=== PATIENT | male | born 1945 | race Caucasian/White ===

== ENCOUNTER → 2023-11-20 13:31 | Outpatient (REF) | payer MEDICARE, OTHER, SELFPAY | LOC: WOUND 13:31 | PROVIDERS: ATTENDING PHYSICIAN Surgery; REFERRING PHYSICIAN Internal Medicine Geriatric Medicine | DX: L89.313 Pressure ulcer of right buttock, stage 3 (principal); Z86.39 Personal history of other endocrine, nutritional and metabolic disease; Z85.51 Personal history of malignant neoplasm of bladder; Z99.2 Dependence on renal dialysis; K92.2 Gastrointestinal hemorrhage, unspecified; N18.5 Chronic kidney disease, stage 5; I12.0 Hypertensive chronic kidney disease with stage 5 chronic kidney disease or end stage renal disease | CPT/HCPCS: 11042; 99214 ==

== ENCOUNTER → 2023-11-29 16:10 | Outpatient (REF) | payer MEDICARE, OTHER, SELFPAY ==
--- NOTE | 2023-11-21 08:41 | WATCHMAN ---
Documented by User: VANDANA Tan 12/17/23 14:07
Watchman
Wathcman Procedure
Referred by:: Lucy Biggs/Suzi
Date of Referral:: 11/20/23
[id number] Score
Age in Years (65=0, 65-74=1, >/=75=2): > or = 75
Sex (Female=+1): Male
Congestive Heart Failure History (Yes=+1): No
Hypertension History (Yes=+1): Yes
Stroke/TIA/Thromboembolism History (Yes=+2): No
Vascular Disease History (Yes=+1): No
Diabetes Mellitus (Yes=+1): Yes
Score: 4
Anticoagulation Recommendations: Recommend anticoagulation (as validated in nonvalvular fib)
HASBLED Score
Hypertenstion (uncontrolled >160mmHG systolic): Yes
Renal disease (dialysis, transplant, Cr >2.26mg/dL or >200umol/L): Yes
Liver disease (cirrhosis or bilirubin >2x normal w/ AST/ALT/AP >3x normal: No
Stroke history: No
Prior major bleeding or predisposition to bleeding: Yes
Labile INR(unsable/high INRs,time in therapeutic range <60%): No
Age >65: Yes
Medication usage predisposing to bleeding(ASA, NSAIDS): No
Alcohol use (>/= 8 drinks/week): No
Score: 4
Risk: Alternatives to anticoagulation should be considered: Patient is at high risk for major bleeding
Physician Visits
Delivery Motorcycle Driver:: Suzi
Date of Visit:: 11/19/23
Primary Cash Applications Clerk:: Lucy Biggs
Date of Visit:: 11/05/23
PCP:: Fausto Gomez
Plan
Plan:: 11/19/2023: Patient seen by Dr. Archer for consult for watchman. Currently not on OAC following GI bleed. Needs GI clearance to resume. CT scan scheduled for 11/29/2023.
12/11/2023: Reviewed patient with the heart team in the [facility]. GI cleared patient for OAC 12/10/23. Dr. Archer to discuss starting OAC (Eliquis) and will discuss planning watchman if patient able to tolerate OAC. Reviewed CT scan and AMOL looks amenable
for a device will confirm with intraop JEN. JEN before TSP.
12/17/2023: Called and spoke to patient to update on Heart Team discussion. Explained to patient he will need to start Eliquis 3 weeks prior to watchman to make sure he can tolerate it without bleeding. Offered procedure date of 01/15/2024 but patient
is currently inpatient and unsure of discharge. Needs to 'think over' starting anticoagulation. Explained he will also need to be on it for a minimum of 45 days post procedure, possibly longer. Allowed for and answered questions. Will call in a week
or two to follow up. Racheal Archer notified that patient is inpatient and of this discussion.

Documented by User: VANDANA Lockhart 12/11/23 07:41
Watchman
[id number] Score
Score: 4
Anticoagulation Recommendations: Recommend anticoagulation (as validated in nonvalvular fib)
HASBLED Score
Score: 4
Risk: Alternatives to anticoagulation should be considered: Patient is at high risk for major bleeding
Plan
Plan:: 11/19/2023: Patient seen by Dr. Archer for consult for watchman. Currently not on OAC following GI bleed. Needs GI clearance to resume. CT scan scheduled for 11/29/2023.
12/11/2023: Reviewed patient with the heart team in the [facility]. GI cleared patient for OAC 12/10/23. Dr. Archer to discuss starting OAC (Eliquis) and will discuss planning watchman if patient able to tolerate OAC. Reviewed CT scan and AMOL looks amenable
for a device will confirm with intraop JEN. JEN before TSP.
== END ==
LOC: RAD 16:10
PROVIDERS: ATTENDING PHYSICIAN Internal Medicine Cardiovascular Disease; FAMILY PHYSICIAN Internal Medicine Geriatric Medicine
DX: I48.0 Paroxysmal atrial fibrillation (principal); Z87.19 Personal history of other diseases of the digestive system
CPT/HCPCS: 75572; Q9967

== ENCOUNTER → 2023-11-30 13:22 | Outpatient (REF) | payer MEDICARE, OTHER, SELFPAY | LOC: WOUND 13:22 | PROVIDERS: ATTENDING PHYSICIAN Surgery; FAMILY PHYSICIAN Internal Medicine Geriatric Medicine | DX: L89.313 Pressure ulcer of right buttock, stage 3 (principal); K92.2 Gastrointestinal hemorrhage, unspecified; N18.5 Chronic kidney disease, stage 5; I12.0 Hypertensive chronic kidney disease with stage 5 chronic kidney disease or end stage renal disease; Z99.2 Dependence on renal dialysis; Z86.39 Personal history of other endocrine, nutritional and metabolic disease; Z85.51 Personal history of malignant neoplasm of bladder | CPT/HCPCS: 99212 ==

== ENCOUNTER 2023-12-14 17:38 | Inpatient (IN) | payer MEDICARE, OTHER, SELFPAY ==
[2023-12-14] VITALS (7 sets, daily range): BP systolic 111–150; BP diastolic 49–71
[2023-12-14 14:02] LABS: Glucose - Point of Care 50 mg/dl (70-99)
[2023-12-14 14:17] LABS: Hematocrit 30.1 % (39.0-52.0); Hemoglobin 10.2 g/dL (13.0-18.0); Mean Corp Hgb Conc. 33.9 g/dL (33.0-37.0); Mean Corpuscular Hgb 33.4 pg (27.0-31.0); Mean Corpuscular Volume 98.7 fL (80.0-94.0); Mean Platelet Volume 11.3 fL (7.4-10.4); Platelet Count 356 10^3/uL (130-400); Red Blood Cell Count 3.05 10^6/uL (4.70-6.10); Red Cell Dist. Width 18.6 % (11.5-14.5)
[2023-12-14 14:29] LABS: Glucose - Point of Care 69 mg/dl (70-99)
[2023-12-14 14:38] LABS: ALT (SGPT) 85 U/L (0-50); AST (SGOT) 72 U/L (17-59); Albumin 3.9 g/dl (3.5-5.0); Alkaline Phosphatase 103 U/L (38-126); Blood Urea Nitrogen 84 mg/dl (9-20); Calcium 9.2 mg/dl (8.4-10.2); Carbon Dioxide 22 mmol/L (22-30); Chloride 98 mmol/L (98-107); Glucose 42 mg/dl (70-99); Potassium 3.8 mmol/L (3.5-5.1); Sodium 133 mmol/L (135-145); Total Bilirubin 0.5 mg/dl (0.2-1.3); Total Protein 6.5 g/dl (6.3-8.2); eGFR 6.31
[2023-12-14 14:54] LABS: Glucose - Point of Care 75 mg/dl (70-99)
[2023-12-14 15:04] LABS: Absolute Neutrophils -Man Diff 15.7 10^3/uL (1.4-6.5); Anisocytosis Occasional; Band Neutrophils 0 % (0-3); Lymphocytes 6 % (20-51); Monocytes 18 % (2-9); Myelocytes 1 % (-); Normal RBC Morphology No; Platelets Checked Yes; Segmented Neutrophils 75 % (42-75)
[2023-12-14 15:05] LABS: Hypochromasia 2+; Total Cells Counted 100
--- NOTE | 2023-12-14 15:06 | ED.GENMED ---
History of Present Illness
General
Chief Complaint: Change Level of Consciousness
Source: patient
Time Seen by Provider: 12/14/23 14:50
Travel History
Have you had any contact with someone who has COVID-19?: No
Do you have any symptoms of coronavirus? Fever > 100 degrees, chills, cough, shortness of breath, sore throat, loss of taste or smell, muscle aches, or headache?: No
History of Present Illness
History of Present Illness:
78-year-old male presents to the emergency room for evaluation of weakness, confusion. Patient noted to be hypoglycemic in triage. He was given orange juice and milk. At the time of my evaluation his Accu-Chek has gone up to 75 and he is
conversant. Daughter states he is much closer to baseline now than he was when she first picked him up this morning. Patient was recently hospitalized at [facility] due to confusion and weakness. This occurred after bladder procedures at [facility]. Patient was suggested to go to rehab but he did not. The procedures the patient underwent was removal of a prosthetic bladder sphincter. Because this was removed he has an indwelling Sanches catheter. Patient is known to nephrology here.
Patient gives himself long-acting insulin at night and then a sliding scale during the day. He does endorse significant weight loss since his recent hospitalization. Patient has been experiencing diarrhea. He did have it while he was hospitalized
at [facility]. Is not sure if he was tested for C. difficile.
Past History
Past History
ED Past Medical History: CAD, Cancer (Protate and Bladder), HTN, Hypercholesterolemia, NIDDM, Renal failure and Other (chronic constipation)
ED Past Surgical History: Cardiac (CABG) and Urological (Prostatectomy with bladder scraping)
Social History
Tobacco: Former smoker
Alcohol: Daily (Whisky)
Personal:
Living: with family
Employment: Retired
Phy Exam
Physical Exam
Physical Exam:
General: Awake, Alert, Oriented X3. Disheveled and appears chronically ill.
Vitals: Afebrile
Head: Atraumatic
Eyes: Pupils equal, EOMI
Throat: Airway intact, no exudates, dry mucosa
Neck: Trachea midline
Lungs: Clear and equal b/l
Heart: Regular rate, no murmurs
Abd: Soft, Nontender, No pulsatile mass. Port no dialysis catheter noted
Genitalia: Indwelling Sanches catheter noted
Neuro: Grossly nonfocal
Skin: Warm, dry, no rash
Extremities: pulses equal b/l, no edema
Course
Orders/Labs/Results
Orders:
Orders
12/14/23 13:58
Complete Blood Count/With Diff Urgent
Comprehensive Metabolic Panel Urgent
Manual Differential Urgent
12/14/23 Dinner
BRAT
At Your Request: Limited, Um Specialist Required
12/14/23 15:03
Acetaminophen [Tylenol] 650 mg PO NOW STA
Oxycodone [Roxicodone] 5 mg PO NOW STA
12/14/23 16:23
Hemodialysis treatment As Directed
Treatment date:: 12/15/23
Treatment type: Hemodialysis
Ultrafiltration (kg): 1
Treatment time (duration): 3 hours 30 minutes
Use dialysis access:: AVF
Dialyzer:: Optiflux 160
Blood flow rate minimum: 350
Blood flow rate maximum: 400
Dialysis flow rate: 600 mL/min
Dialysate temperature: 35 degrees Celsius
Sodium (Na): 140
Potassium (K): 3
Calcium (Ca): 2.5
Bicarbonate (HCO3): 35
12/14/23 16:37
CR Chest Portable - 1 View Urgent
Comment:
Reason For Exam: sob
Reason Study Needs to be Portable: Unable to Transport
12/14/23 17:27
Admit/Transfer Patient As Directed
Co-Sign Provider:
Level of Care: Inpatient admission
Assign to:: Telemetry
Physician / Group: kristopher
Diagnosis: antibiotic diarrhea, hypoglycemia
Reason for Telemetry: Arrhythmia
Date to Stop Telemetry: 12/17/23
Time to Stop Telemetry: 11:00
Reason for Hospitalization: antibiotic diarrhea, hypoglycemia
Expected length of stay greater than two midnights?: Yes
ELOS- Estimated Length of Stay in days: 2
I certify the patient meets the requirements for IP care: Yes
12/14/23 17:28
Code Status As Directed
Resuscitation Status: Do not resuscitate
Reached after discussion with pt or family/Healthcare POA: Yes
DNR Bracelet Application ONCE
12/14/23 17:29
C difficile Antigen & Toxins Urgent
LIANET Source: Feces/Stool
Specimen Description:
Norovirus by PCR Urgent
LIANET Source: Feces/Stool
Specimen Description:
Stool Culture Urgent
LIANET Source: Feces/Stool
Specimen Description:
12/14/23 18:32
Dextrose 50%-Water [Dextrose 50% Syringe] 12.5 grams IV [id number] PRN
Glucagon [GlucaGen] 1 mg IM PRN PRN
12/14/23 18:32
Activity As Directed
Activity Level: As Tolerated
Bedside Glucose Monitoring As Directed
Frequency: AC&HS
Comment: Change to q6h if pt on TPN, tube feeding or not eating
Vital Signs As Directed
Frequency: Per unit guidelines
OT Consult [Ot Eval And Treat] Routine
PT Consult [Pt Eval And Treat] Routine
Activity Level: As Tolerated
DX Deep Vein Thrombosis Video Routine
12/14/23 20:00
Heparin 5,000 units SC Q12
12/15/23 06:00
Complete Blood Count/With Diff IN AM
Comprehensive Metabolic Panel IN AM
Glycohemoglobin (HgbA1c) IN AM
12/15/23 07:00
Complete Blood Count/No Diff Urgent
Electrolytes Urgent
Comment: pre-Hemodialysis lab, to be drawn by HD nurse
12/15/23 07:30
Insulin Aspart Corrective Low [Novolog Flexpen-Low Resistance] See Protocol SC AC
12/15/23 08:00
Albumin Human 25% 50 ml [Flexbumin 25% For Hemodialysis] 12.5 grams IV HD-Q1HPRN PRN
Epoetin Marcio-Epbx [Retacrit] 6,000 units IV HD-ONCE ONE
Heparin 500 units IV HD-ONCE ONE
Mannitol 12.5 grams IV HD-Q1HPRN PRN
Sodium Chloride [Sodium Chloride 4 Meq/ml For Hemodialysis] 10 ml IV HD-Q1HPRN PRN
12/17/23 11:00
DC Protocol for Telemetry ONCE
Abnormal Lab Results
12/14/23 12/14/23 12/14/23
13:58 14:28 17:26
WBC 21.0 H 10^3/uL
(4.8-10.8)
RBC 3.05 L 10^6/uL
(4.70-6.10)
Hgb 10.2 L g/dL
(13.0-18.0)
Hct 30.1 L %
(39.0-52.0)
MCV 98.7 H fL
(80.0-94.0)
MCH 33.4 H pg
(27.0-31.0)
RDW 18.6 H %
(11.5-14.5)
MPV 11.3 H fL
(7.4-10.4)
Abs Neuts (Manual) 15.7 H 10^3/uL
(1.4-6.5)
Lymphocytes (Manual) 6 L %
(20-51)
Monocytes (Manual) 18 H %
(2-9)
Sodium 133 L mmol/L
(135-145)
BUN 84 H mg/dl
(9-20)
Creatinine 8.0 H* mg/dL
(0.7-1.3)
Glucose 42 L* mg/dl
(70-99)
AST 72 H U/L
(17-59)
ALT 85 H U/L
(0-50)
POC Glucose 50 L* mg/dl 69 L mg/dl 228 H mg/dl
(70-99) (70-99) (70-99)
12/14/23 13:58
12/14/23 13:58
Vital Signs
Initial and Last Documented VS:
Initial Vital Signs
Temp Pulse Resp BP Pulse Ox
98.3 F 84 18 131/61 98
12/14/23 13:46 12/14/23 13:46 12/14/23 13:46 12/14/23 13:46 12/14/23 13:46
Last Documented Vital Signs
Temp Pulse Resp BP Pulse Ox
98 F 83 17 133/57 95
12/14/23 18:39 12/14/23 18:39 12/14/23 18:39 12/14/23 18:39 12/14/23 18:39
*Critical Care Note
Total Time (30-74mins, 75-104mins- exclusive of procedures): Not Applicable
ED Attending Note
-
Portions of this chart may have been created with voice recognition software.� Occasional wrong word or��sound alike� substitutions may have occurred due to the inherent limitations of voice recognition software.
Discharge Plan
Departure
Patient Disposition: Admit
Date of Disposition: 12/14/23
Time of Disposition: 16:43
Presentation/result/management discussed w/ accepting MD/DO: Hospitalist
Condition: Fair
Discharge Problem:
Acute uremia
Interventions
Interventions:
*Risk Screen - Suicide Last Done: 12/14/23 13:46
*General Assessment Last Done: 12/14/23 13:46
*Neglect/Abuse Screening Last Done: 12/14/23 13:46
ED- Fall Risk Assessment Last Done: 12/14/23 17:47
*ED COVID-19 Vaccine History Last Done: 12/14/23 14:17
*Nursing Disposition Last Done: 12/14/23 17:47
ED- Cardiac Assessment Last Done: 12/14/23 14:24
ED- Neurological Assessment Last Done: 12/14/23 14:24
ED-Psychological Assessment Last Done: 12/14/23 14:24
ED- Pulmonary Assessment Last Done: 12/14/23 14:24
Discharge Date and Time
Discharge Date/Time: 12/14/23 18:29
[2023-12-14] MEDS: TYLENOL 650 MG PO ×2 (15:11→23:14)
[2023-12-14] MEDS: ROXICODONE PO (15:11)
[2023-12-14] MEDS: ROXICODONE 5 MG PO (15:19)
--- NOTE | 2023-12-14 16:14 | W.CON.NEPH ---
Consultation
-
Date/Time Consultation Requested: December 14, 2023 1500
Date/Time Consultation Performed: December 14, 2023 1600
Requesting Provider: Dr. Ruiz
Performing Provider: Dr. Torres
Reason for Consultation: ESRD
Medical History
-
Chief Complaint: ESRD
History of Present Illness:
This is a 78-year-old gentleman who is well-known to us for his end-stage renal disease on dialysis. He had initially been on peritoneal dialysis but had recurrent peritonitis and switch to hemodialysis for some time. He does have a functional
left upper extremity AV fistula. He recently returned to peritoneal dialysis again. However, he has had multiple complications from other issues including bladder cancer as well as GI bleeding. He ultimately was admitted to [facility] where
he underwent urinary sphincter explant. He was left with a Sanches catheter. While there they had placed him back on peritoneal dialysis. He had then been discharged home. However at home he has had several falls. His daughter has been checking
in on him and has noticed that he is not doing very well. It appears that he is clearly unable to tolerate peritoneal dialysis 11 hours/day. He is willing to go to rehab.
Past Medical History
1.� ESRD several years, initially was on PD then HD, now returned
� � to PD.
2.� Chronic anemia, however, recent GI bleeding from colonic AVMs.
3.� Secondary hyperparathyroidism on vitamin D.
4.� Paroxysmal AFib on anticoagulation with Eliquis.
5.� CHF, combined systolic and diastolic.
6.� History of bladder cancer, status post TURP and chemo.
7.� Prostate cancer, status post prostatectomy.
8.� Hyperlipidemia.
9.� Type 2 diabetes.
10. Prior ND, ischemic cardiomyopathy.
11. Diverticulosis.
12. Fatty liver.
13. Skin cancer.
14. Depression.
15. Colonic polyps.
16. Hypertension.
17. Prior CABG 2019.
18. Kidney biopsy.
19. Cataract surgery.
Social History
Tobacco: Former Smoker
Alcohol: None
Family History
No CKD
Allergies / Home Medications
Allergy/AdvReac Type Severity Reaction Status Date / Time
amlodipine Allergy edema Verified 10/12/23 05:04
Medication Instructions Recorded Confirmed Type
ezetimibe 10 mg tablet 10 mg PO DAILY High cholesterol 05/11/20 12/14/23 History
vilazodone 40 mg tablet (Viibryd) 40 mg PO DAILY Depression 05/11/20 12/14/23 History
atorvastatin 40 mg tablet 40 mg PO DAILY High cholesterol 05/18/22 12/14/23 History
furosemide 80 mg tablet 80 mg PO DAILY Fluid 05/18/22 12/14/23 History
retention/Swelling
mv,[id number]-[id number] 2 cap PO DAILY Supplement 05/18/22 12/14/23 History
oil 400 mcg-500 unit capsule
(ProRenal QD)
coenzyme Q10 100 mg capsule 100 mg PO QPM Supplement 08/04/22 12/14/23 History
(CoQ-10)
ipratropium bromide 21 mcg (0.03 2 spray intranasal BID Allergies 08/04/22 12/14/23 History
%) nasal spray
sevelamer carbonate 800 mg tablet 2,400 mg PO MEALS Kidney Disease 08/04/22 12/14/23 History
insulin aspart U-100 100 unit/mL 0 sliding scale dose SC MEALS 08/17/22 12/14/23 History
subcutaneous solution (Novolog Diabetes
U-100 Insulin aspart)
amiodarone 200 mg tablet 100 mg PO DAILY Arrhythmia 02/27/23 12/14/23 History
trazodone 50 mg tablet 50 mg PO HS PRN Sleep 04/06/23 12/14/23 History
cholecalciferol (vitamin D3) 125 125 mcg PO QPM Supplement 06/15/23 12/14/23 History
mcg (5,000 unit) tablet
clonidine HCl 0.3 mg tablet 0.3 mg PO BID Blood Pressure 06/15/23 12/14/23 History
hydralazine 50 mg tablet 50 mg PO DAILY Blood Pressure 06/15/23 12/14/23 History
latanoprost 0.005 % eye drops 1 drp BOTH EYES HS Eye Condition 06/15/23 12/14/23 History
polyethylene glycol 3350 17 gram 17 g PO DAILY PRN constipation 06/15/23 12/14/23 History
oral powder packet (Miralax)
acetaminophen 325 mg tablet 650 mg PO Q4HPRN PRN mild pain #0 06/17/23 12/14/23 Rx
tabs
aspirin 81 mg tablet,delayed 81 mg PO DAILY Blood Clot 09/25/23 12/14/23 History
release Prevention/Tx
insulin glargine 100 unit/mL (3 16 unit SC HS Diabetes 09/25/23 12/14/23 History
mL) subcutaneous pen (Lantus
Solostar U-100 Insulin)
oxycodone 5 mg tablet 5 mg PO Q6HPRN PRN 09/25/23 12/14/23 History
breakthrough/severe pain
sevelamer carbonate 800 mg tablet 2,400 mg PO TID PRN snacks 09/25/23 12/14/23 History
Review of Systems
-
No chest pain or shortness of breath. Severe weakness with falls. Bloody urine output from Sanches.
The remainder of the complete review of systems was negative
Physical Exam
Vital Signs
Vital Signs
Temp Pulse Resp BP Pulse Ox
98.3 F 78 16 111/52 97
12/14/23 13:46 12/14/23 14:25 12/14/23 14:25 12/14/23 14:25 12/14/23 14:25
Lab Results
WBC 21.0 10^3/uL (4.8-10.8) H 12/14/23 13:58
RBC 3.05 10^6/uL (4.70-6.10) L 12/14/23 13:58
Hgb 10.2 g/dL (13.0-18.0) L 12/14/23 13:58
Hct 30.1 % (39.0-52.0) L 12/14/23 13:58
Plt Count 356 10^3/uL (130-400) 12/14/23 13:58
Sodium 133 mmol/L (135-145) L 12/14/23 13:58
Potassium 3.8 mmol/L (3.5-5.1) 12/14/23 13:58
Chloride 98 mmol/L (98-107) 12/14/23 13:58
Carbon Dioxide 22 mmol/L (22-30) 12/14/23 13:58
BUN 84 mg/dl (9-20) H 12/14/23 13:58
Creatinine 8.0 mg/dL (0.7-1.3) H* 12/14/23 13:58
eGFR 6.31 12/14/23 13:58
Glucose 42 mg/dl (70-99) L* 12/14/23 13:58
Calcium 9.2 mg/dl (8.4-10.2) 12/14/23 13:58
Albumin 3.9 g/dl (3.5-5.0) 12/14/23 13:58
Physical Exam
General: AOx3
HEENT: PERRL, EOMI, Ear/Nose Intact, Oropharynx Clear/Moist, Neck Supple, Trachea Midline and No Thyromegaly
Respiratory: Clear
Cardiac: Regular Rate/Rhythm
Abdomen: Soft, Nontender, Nondistended, Normal Bowel Sounds, No Hepatosplenomegaly and Other (PD catheter clean dry and intact)
Genito-urinary: Bloody Urine (Sanches in place)
Skin: No Rash and Normal Turgor
Psych: Mood/afflect pleasant and Insight/judgement good
Assessment/Plan
-
Assessment:
History of colonic AVMs (APC February 2023, May 2023, Sep 30)
ESRD on PD (recent conversion from HD)
chronic combined Heart failure with reduced EF46%, DD stage2
CAD status post CABG 2018
Edema
Bladder CA status post TURBT
Prostate CA status post prostatectomy
Diabetes mellitus type 2
Hypertension multidrug
Hypercholesterolemia
Paroxysmal atrial fibrillation on anticoagulation
Secondary hyperparathyroidism
Chronic back pain requiring epidural injections
Left brachiocephalic AV fistula
Depression
Leukocytosis
Falls
Plan:
Conversion to hemodialysis.
Dialysis tomorrow
He has an outpatient Sunday schedule
Will use AV fistula
Will need PD catheter removed. This may be done as an outpatient
Clearly, he cannot live by himself at home. He will need rehab at the very least. He is willing to entertain this. He does not wish to go to [facility] or [facility]
This was discussed with the daughter at the bedside as well..
Data Reviewed
-
Medical Tests (Nuc Med, Echo etc): Image Personally Visualized and interpreted (EKG from October 12, 2023 by my reading shows sinus rhythm right bundle branch block left anterior fascicular block PVCs)
Labs: Labs Reviewed by me
Old Records: Requested (From outside hospital)
[2023-12-14 17:27] LABS: Glucose - Point of Care 228 mg/dl (70-99)
--- NOTE | 2023-12-14 17:31 | HPS.HSE ---
Addendum entered and electronically signed by Bina Flynn MD 12/14/23 17:36:
Patient was hospitalized here prior to his admission to [facility] in October. At that time he had GI bleeding and had colonoscopy showed solitary ulcer in the ascending colon which was treated with Endo Clip. Eliquis is discontinued at this
time.
Original Note:
Family Physician
-
Family Physician: Fausto Gomez
Chief Complaint
-
weakness, confusion
History of Present Illness
78-year-old male with past medical history of ESRD on peritoneal dialysis, secondary hyperparathyroidism, CAD status post CABG, paroxysmal atrial fibrillation on Eliquis, CHF, hypertension, prostate/bladder cancer status post prostatectomy and
bladder scraping, hypertension, hypercholesteremia, diabetes, chronic constipation, chronic anemia, hyperlipidemia, type 2 diabetes, diverticulosis, fatty liver, skin cancer, depression, presenting for weakness and confusion. On arrival he was
found to be hypoglycemic and given orange juice and milk. Daughter states that he is mental status is currently much closer to baseline now compared to this morning.
Patient was recently hospitalized at [facility] due to altered mental status and agitation in the setting of missed dialysis. He was found to have demand ischemia and hyperkalemia and metabolic encephalopathy secondary to aspiration pneumonia.
He was treated with dialysis. Troponin elevation was thought to be secondary to demand ischemia and catheterization was not pursued. He was treated with course of antibiotics and mental status improved. He was also found to have erosion of
artificial urethral sphincter status post removal of sphincter and since then he has had chronic indwelling Sanches catheter. He was resumed on peritoneal dialysis. He left AMA from [facility] 2 days ago.
Patient states that he has been having large-volume diarrhea for the past 3 to 4 days that is watery. He denies any abdominal pain does have some nausea but denies vomiting. Denies any fevers or chills. He states he is chronically shortness of
breath but denies any worsening shortness of breath or cough.
No history of recent low blood sugars.
Patient has been unable to manage his peritoneal dialysis at home. Daughter is encouraging him to come back to the hospital for rehab.
Medical History
Past Medical History
Past Medical History: Reports Other (ESRD on peritoneal dialysis, secondary hyperparathyroidism, CAD status post CABG, paroxysmal atrial fibrillation on Eliquis, CHF, hypertension, prostate/bladder cancer status post prostatectomy and bladder
scraping, hypertension, hypercholesteremia, diabetes, chronic constipation, chronic anemia, hy)
Past Surgical History: Reports Other (Cardiac (CABG) and Urological (Prostatectomy with bladder scraping))
Social History
Tobacco: Former Smoker
Alcohol: Former
Drug: None
Family History
Family History: Not pertinent
Allergies / Home Medications
Allergies reflects when Allergies were last updated in [employer]
Home Medications with original date entered in [employer]
Allergy/Medication List:
Allergies
Allergy/AdvReac Type Severity Reaction Status Date / Time
amlodipine Allergy edema Verified 10/12/23 05:04
Home Medications
ezetimibe 10 mg tablet 10 mg PO DAILY High cholesterol 05/11/20
vilazodone 40 mg tablet (Viibryd) 40 mg PO DAILY Depression 05/11/20
atorvastatin 40 mg tablet 40 mg PO DAILY High cholesterol 05/18/22
furosemide 80 mg tablet 80 mg PO DAILY Fluid retention/Swelling 05/18/22
mv,Ni-ukp-HA-[id number]-TK-0-ppe-umt-behb oil 400 mcg-500 unit capsule (ProRenal QD) 2 cap PO DAILY Supplement 05/18/22
coenzyme Q10 100 mg capsule (CoQ-10) 100 mg PO QPM Supplement 08/04/22
ipratropium bromide 21 mcg (0.03 %) nasal spray 2 spray intranasal BID Allergies 08/04/22
sevelamer carbonate 800 mg tablet 2,400 mg PO MEALS Kidney Disease 08/04/22
insulin aspart U-100 100 unit/mL subcutaneous solution (Novolog U-100 Insulin aspart) 0 sliding scale dose SC MEALS Diabetes 08/17/22
amiodarone 200 mg tablet 100 mg PO DAILY Arrhythmia 02/27/23
trazodone 50 mg tablet 50 mg PO HS PRN Sleep 04/06/23
cholecalciferol (vitamin D3) 125 mcg (5,000 unit) tablet 125 mcg PO QPM Supplement 06/15/23
clonidine HCl 0.3 mg tablet 0.3 mg PO BID Blood Pressure 06/15/23
hydralazine 50 mg tablet 50 mg PO DAILY Blood Pressure 06/15/23
latanoprost 0.005 % eye drops 1 drp BOTH EYES HS Eye Condition 06/15/23
polyethylene glycol 3350 17 gram oral powder packet (Miralax) 17 g PO DAILY PRN constipation 06/15/23
acetaminophen 325 mg tablet 650 mg PO Q4HPRN PRN mild pain #0 tabs 06/17/23
aspirin 81 mg tablet,delayed release 81 mg PO DAILY Blood Clot Prevention/Tx 09/25/23
insulin glargine 100 unit/mL (3 mL) subcutaneous pen (Lantus Solostar U-100 Insulin) 16 unit SC HS Diabetes 09/25/23
oxycodone 5 mg tablet 5 mg PO Q6HPRN PRN breakthrough/severe pain 09/25/23
sevelamer carbonate 800 mg tablet 2,400 mg PO TID PRN snacks 09/25/23
Review of Systems
-
History Source: Patient
A 12 point ROS was completed and negative except as noted: Yes
Constitutional: Reports No Symptoms
EENT: Reports No Symptoms
Respiratory: Reports No Symptoms
Cardiac: Reports No Symptoms
Abdomen/GI: Reports No Symptoms
: Reports No Symptoms
Musculoskeletal: Reports No Symptoms
Skin: Reports No Symptoms
Neurological: Reports No Symptoms
Endocrine: Reports No Symptoms
Hematologic/Lymphatic: Reports No Symptoms
Psych: Reports No Symptoms
Physical Exam
Vital Signs
Vital Signs
Temp Pulse Resp BP Pulse Ox
98.3 F 82 23 129/71 97
12/14/23 13:46 12/14/23 16:30 12/14/23 16:30 12/14/23 15:00 12/14/23 15:30
Physical Exam
General: Well Developed, Well Nourished and No Apparent Distress
HEENT: NormoCephalic, Moist mucous membranes and Atraumatic
Respiratory: Clear
Cardiac: S1/S2 and Regular Rhythm; No Murmur or Rub
GI: Soft, Non Tender, Non Distended and Normal Bowel Sounds; No Organomegaly
Rectal: Deferred by Provider
Musculoskeletal: No Clubbing, No Cyanosis and No Edema
Skin: No Rash
Neuro: Nonfocal/grossly intact
Laboratory Results
-
12/14/23 13:58
12/14/23 13:58
Laboratory Results
Total Bilirubin 0.5 mg/dl (0.2-1.3) 12/14/23 13:58
AST 72 U/L (17-59) H 12/14/23 13:58
ALT 85 U/L (0-50) H 12/14/23 13:58
Alkaline Phosphatase 103 U/L (38-126) 12/14/23 13:58
Data Reviewed
-
Lab Data: Labs Reviewed by me
Old Records: Reviewed
Impression/Plan
-
IMPRESSION:
PLAN:
# Weakness/confusion secondary to hypoglycemia in the setting of diarrhea/decreased oral intake/insulin use
# Type 2 diabetes
-Hold Lantus
-Insulin sliding scale, Accu-Cheks every 6 hours
-Will need to decrease Lantus due to decreased oral intake/diarrhea
# Diarrhea secondary to antibiotic use, rule out C. difficile
-Check stool culture, norovirus, C. difficile
-BRAT diet
# Inability to manage peritoneal dialysis
# History of ESRD on peritoneal dialysis
-Nephrology to perform hemodialysis tomorrow through AV fistula
-Outpatient removal of PD catheter
-PT/OT for rehab
-Continue sevelamer
# Transaminitis unclear etiology
-Continue to monitor
# Recent aspiration pneumonia
-Treated at [facility]
Secondary hyperparathyroidism
CAD status post CABG
Recent demand ischemia/NSTEMI
-Continue aspirin
Paroxysmal atrial fibrillation
-Continue amiodarone
Combined systolic/diastolic CHF
-Continue Lasix
Essential hypertension
-Continue clonidine, hydralazine
Prostate/bladder cancer status post recent prostatectomy and bladder scraping with chronic Sanches catheter
Hypercholesterolemia
-Continue statin, Zetia
Chronic constipation
-Continue MiraLAX
Chronic anemia
Diverticulosis
History of fatty liver
History of skin cancer
Depression
-Continue vilazodone
Cataract surgery
DNR/DNI
DVT prophylaxis-heparin
Brat diet
--- NOTE | 2023-12-14 17:52 | CM ---
CM confirmed that patient is known to [facility]. Patient's PCP had called CM department requesting assistance for placement. Patient presented to ED. CM will continue to follow as needed.
--- NOTE | 2023-12-14 19:00 | PTCARENOTE ---
pt arrived to floor via stretcher and transferred over to the bed. Pt very drowsy, but arousable, pt states he hasnt slept for 3 days. AOx3, VSS. Placed on telemonitor SR with PVC and BBB. Sanches in place with bloody drainage r/t recent
prostatectomy and bladder scrapping. PD catheter intact, GREGORIO fistula +B+T. Pt placed on enhanced precautions, pt states last bm was . Pt oriented to room with call parker in reach and resting comfortably.
[2023-12-14 20:19] LABS: Glucose - Point of Care 189 mg/dl (70-99)
[2023-12-14] MEDS: HEPARIN 5000 UNITS SC (22:47)
[2023-12-15 03:00] VITALS: BP 143/52
[2023-12-15 06:00] VITALS: BMI 29.3
[2023-12-15 07:30] VITALS: BP 156/60
[2023-12-15 07:39] LABS: % Basophils 0.3 % (0-2); % Eosinophils 1.3 % (0-6); % Immature Granulocytes 1.1 % (0-0.5); % Lymphocytes 7.3 % (20.5-51.1); Absolute Eosinophils 0.2 10^3/uL (0-0.7); Absolute Immature Granulocytes 0.2 10^3/uL (0-0.05); Absolute Lymphocytes 1.1 10^3/uL (1.2-3.4); Absolute Monocytes 2.6 10^3/uL (0.1-0.6); Hematocrit 30.2 % (39.0-52.0); Hemoglobin 9.9 g/dL (13.0-18.0); Mean Corp Hgb Conc. 32.8 g/dL (33.0-37.0); Mean Corpuscular Volume 100.7 fL (80.0-94.0); Nucleated Red Blood Cells % 0 % (-); Red Cell Dist. Width 18.3 % (11.5-14.5)
[2023-12-15 08:03] LABS: Glucose - Point of Care 303 mg/dl (70-99)
[2023-12-15] MEDS: TYLENOL 500 MG PO (08:55)
[2023-12-15] MEDS: HEPARIN 5000 UNITS SC ×2 (08:56→21:01)
[2023-12-15] MEDS: NOVOLOG FLEXPEN-LOW RESISTANCE 4 UNITS SC (08:56)
[2023-12-15 10:04] LABS: ALT (SGPT) 65 U/L (0-50); AST (SGOT) 58 U/L (17-59); Albumin 3.2 g/dl (3.5-5.0); Alkaline Phosphatase 88 U/L (38-126); Blood Urea Nitrogen 93 mg/dl (9-20); Calcium 8.1 mg/dl (8.4-10.2); Carbon Dioxide 21 mmol/L (22-30); Chloride 95 mmol/L (98-107); Estimated Creatinine Clearance 6 ml/min; Glucose 211 mg/dl (70-99); Potassium 4.6 mmol/L (3.5-5.1); Sodium 128 mmol/L (135-145); Total Bilirubin 0.4 mg/dl (0.2-1.3); Total Protein 5.3 g/dl (6.3-8.2); eGFR 5.63
--- NOTE | 2023-12-15 10:29 | W.PN.HOSP.TC ---
Today's Communication/Plan
-
Started hemodialysis today. Obtain blood cultures and follow-up WBC. Stool studies.
Assessment / Plan
Assessment / Plan
Physical exam:
General: Acute and chronically ill
HEENT: Normocephalic, Atraumatic and Moist Mucous Membranes
Respiratory: Decreased breath sounds and few crackles in bases; Negative Wheezes or Rhonchi
Cardiac: Regular Rhythm and S1/S2
GI: Soft, Nontender and Nondistended
Musculoskeletal: Bilateral edema. No Clubbing, No Cyanosis
Neuro: Lethargic but does respond to verbal stimuli, Oriented and does know that he is here in the hospital and reasons. Generalized weakness present. Myoclonus present.
Psych: Calm
A/P:
# Toxic metabolic encephalopathy (weakness/confusion multifactorial secondary to end-stage renal disease/hypoglycemia in the setting of diarrhea/decreased oral intake/insulin use/diabetes mellitus type 2,/recent hospitalization):
-Monitor mental status
-Off antibiotics. Obtain blood cultures
-Plan for hemodialysis today
-Resume Lantus--> avoid hypoglycemia but needs better blood pressure control. Blood sugars in the 300's elevated today.
-Insulin sliding scale, Accu-Cheks. Adjust insulin as needed
-Obtain old records.
-Discuss with son, Justin on 12/14--> in a nutshell, had recent bladder tumor and exchange sphincter; he also was treated for possible pneumonia; PD ineffective-transition to HD; was recommended rehab but refused.
-PT OT
#Leukocytosis:
-In light of patient vascular access and leukocytosis, will order blood cultures today on 12/14
-WBC 21---> 15 today
-Obtain blood cultures. Follow-up blood cultures
-Off antibiotics.
-Continue to monitor trend
# Diarrhea secondary to antibiotic use, rule out C. difficile
-Check stool culture, norovirus, C. difficile
-BRAT diet
# Inability to manage peritoneal dialysis
# History of ESRD on peritoneal dialysis
-Nephrology to perform hemodialysis through AV fistula--> consulted nephrology today on 12/14
-Outpatient removal of PD catheter
-PT/OT for rehab
-Resume sevelamer
#Anemia
-Hemoglobin 9.9 today
-Continue to monitor
# Transaminitis unclear etiology
-Continue to monitor
# Recent aspiration pneumonia
-Treated at [facility]
Secondary hyperparathyroidism
CAD status post CABG
Recent demand ischemia/NSTEMI
-Continue aspirin
Paroxysmal atrial fibrillation
-Continue amiodarone
Combined systolic/diastolic CHF
-Continue Lasix
Essential hypertension
-Continue clonidine, hydralazine
Prostate/bladder cancer status post recent prostatectomy and bladder scraping with chronic Sanches catheter
Hypercholesterolemia
-Continue statin, Zetia
Chronic constipation
-Continue MiraLAX
Chronic anemia
Diverticulosis
History of fatty liver
History of skin cancer
Depression
-Continue vilazodone
Cataract surgery
DNR/DNI
DVT prophylaxis-heparin
Total time spent on today's encounter was 52 minutes which included time spent in counseling the patient/family regarding diagnosis and treatment plan as listed above, goals of care, and symptom management. Case was discussed with nursing staff,
specialists, and care coordinators/case management. All labs and imaging personally reviewed by me. Remainder the time spent in detailed review of previous records, lab data, imaging, and other medical provider documentation.
Anticipated Discharge: > 48 hours
Subjective/Interval History
-
Date of Service: December 15, 2023
Patient alert and having myoclonic jerks. Generalized weakness present. Patient having diarrhea. Afebrile today
Objective Data
-
Labs:
Laboratory Results
12/15/23 12/15/23
06:41 08:29
WBC 15.0 H
Hgb 9.9 L
Hct 30.2 L
Plt Count
Sodium Cancelled 128 L
Potassium Cancelled 4.6
Chloride Cancelled 95 L
Carbon Dioxide Cancelled 21 L
BUN Cancelled 93 H
Creatinine Cancelled 8.8 H*
Glucose Cancelled 211 H
Calcium Cancelled 8.1 L
Total Bilirubin Cancelled 0.4
AST Cancelled 58
ALT Cancelled 65 H
Alkaline Phosphatase Cancelled 88
Vital Signs:
Vital Signs
Temp Pulse Resp BP Pulse Ox
97.8 F 73 16 156/60 97
12/15/23 07:30 12/15/23 07:30 12/15/23 07:30 12/15/23 07:30 12/15/23 09:26
I&O
12/14/23 12/15/23 12/16/23
06:59 06:59 06:59
Intake Total 480 / 480
Balance 480 / 480
Review of Systems
-
All other systems: Reviewed and negative
[2023-12-15 11:28] VITALS: BP 147/66
[2023-12-15 12:07] LABS: Glucose - Point of Care 252 mg/dl (70-99)
[2023-12-15] MEDS: HEPARIN 500 UNITS IV (12:53)
[2023-12-15] MEDS: RETACRIT 6000 UNITS IV (12:54)
--- NOTE | 2023-12-15 12:58 | W.PN.NEPH.HD ---
Assessment
-
Seen on HD. no complaints, twitching while asleep on HD. VSS, access ok
drain remaining PD fluid
i suspect he may do better once he is better dialyzed
Progress Note - Hemodialysis
-
Date of Service: December 15, 2023
Duration: 30 minutes and 3 hours
Potassium Bath: 3
Calcium Bath: 2.5
Opti-Dialyzer: 160
Ultrafiltration: Other (1kg)
Blood Flow: 400
Dialysate Flow: 600
Heparin: 500x1
EPO: 6000 units
[2023-12-15] MEDS: NOVOLOG FLEXPEN-LOW RESISTANCE 3 UNITS SC (13:31)
[2023-12-15 15:55] VITALS: BP 168/72
[2023-12-15] MEDS: LIPITOR 40 MG PO (16:28)
[2023-12-15] MEDS: PACERONE 100 MG PO (16:28)
[2023-12-15] MEDS: ASPIR LOW (ENTERIC COATED) 81 MG PO (16:28)
[2023-12-15] MEDS: ZETIA 10 MG PO (16:28)
[2023-12-15 16:57] LABS: Glucose - Point of Care 108 mg/dl (70-99)
[2023-12-15] MEDS: NOVOLOG FLEXPEN-LOW RESISTANCE SC (17:00)
[2023-12-15] MEDS: VITAMIN D3 (cholecalciferol) 125 MCG PO (18:40)
[2023-12-15] MEDS: RENVELA 2400 MG PO (18:40)
[2023-12-15 19:10] VITALS: BP 113/66
--- NOTE | 2023-12-15 19:12 | PTCARENOTE ---
Called to Pt room to assist with PD. Per physician order, Pt is to be drained and left dry. Drained for ~ 45min with 750ml's removed
[2023-12-15] MEDS: CATAPRES 0.299999999999999989 MG PO (21:00)
[2023-12-15 21:34] LABS: Glucose - Point of Care 260 mg/dl (70-99)
[2023-12-15] MEDS: XALATAN OPHTHALMIC SOLUTION 1 DROP BOTH EYES (22:42)
[2023-12-15] MEDS: LANTUS 0.160000000000000003 UNITS SC (22:43)
[2023-12-15 23:40] VITALS: BP 106/60
[2023-12-16] VITALS (8 sets, daily range): BP systolic 116–167; BP diastolic 49–64; PULSE 75; O2SAT 97; BMI 29.8
[2023-12-16 06:26] LABS: % Basophils 0.1 % (0-2); % Eosinophils 1.1 % (0-6); % Lymphocytes 7.3 % (20.5-51.1); % Neutrophils 72.5 % (42.2-75.2); Absolute Eosinophils 0.2 10^3/uL (0-0.7); Absolute Immature Granulocytes 0.1 10^3/uL (0-0.05); Absolute Monocytes 2.4 10^3/uL (0.1-0.6); Absolute Neutrophils 9.7 10^3/uL (1.4-6.5); Hematocrit 25.7 % (39.0-52.0); Hemoglobin 8.8 g/dL (13.0-18.0); Mean Corp Hgb Conc. 34.2 g/dL (33.0-37.0); Mean Corpuscular Hgb 33.8 pg (27.0-31.0); Mean Corpuscular Volume 98.8 fL (80.0-94.0); Mean Platelet Volume 11.3 fL (7.4-10.4); Nucleated Red Blood Cells % 0 % (-); Platelet Count 219 10^3/uL (130-400); Red Cell Dist. Width 18.1 % (11.5-14.5); White Blood Cell Count 13.4 10^3/uL (4.8-10.8)
[2023-12-16 06:54] LABS: ALT (SGPT) 51 U/L (0-50); AST (SGOT) 53 U/L (17-59); Albumin 2.8 g/dl (3.5-5.0); Alkaline Phosphatase 76 U/L (38-126); Blood Urea Nitrogen 49 mg/dl (9-20); Carbon Dioxide 25 mmol/L (22-30); Chloride 94 mmol/L (98-107); Direct Bilirubin 0.1 mg/dl (0.0-0.4); Estimated Creatinine Clearance 12 ml/min; Glucose 155 mg/dl (70-99); Potassium 3.8 mmol/L (3.5-5.1); Sodium 132 mmol/L (135-145); Total Bilirubin 0.4 mg/dl (0.2-1.3); eGFR 11.65
[2023-12-16 07:04] LABS: Glucose - Point of Care 141 mg/dl (70-99)
[2023-12-16] MEDS: NOVOLOG FLEXPEN-LOW RESISTANCE SC ×2 (07:17→16:52)
[2023-12-16] MEDS: CATAPRES 0.299999999999999989 MG PO ×2 (08:04→20:33)
[2023-12-16] MEDS: ZETIA 10 MG PO (08:04)
[2023-12-16] MEDS: RENVELA 2400 MG PO ×3 (08:04→16:52)
[2023-12-16] MEDS: LASIX 80 MG PO (08:04)
[2023-12-16] MEDS: HEPARIN 5000 UNITS SC ×2 (08:05→20:32)
[2023-12-16] MEDS: APRESOLINE 50 MG PO (08:05)
[2023-12-16] MEDS: PACERONE 100 MG PO (08:05)
[2023-12-16] MEDS: ASPIR LOW (ENTERIC COATED) 81 MG PO (08:05)
[2023-12-16] MEDS: LIPITOR 40 MG PO (08:06)
--- NOTE | 2023-12-16 08:29 | W.PN.HOSP.TC ---
Today's Communication/Plan
-
Continue hemodialysis. PT OT. Follow-up cultures
Assessment / Plan
Assessment / Plan
Physical exam:
General: Acute and chronically ill
HEENT: Normocephalic, Atraumatic and Moist Mucous Membranes
Respiratory: Decreased breath sounds and few crackles in bases; Negative Wheezes or Rhonchi
Cardiac: Regular Rhythm and S1/S2
GI: Soft, Nontender and Nondistended
Musculoskeletal: Bilateral edema. No Clubbing, No Cyanosis
Neuro: Lethargic but does respond to verbal stimuli, Oriented and does know that he is here in the hospital and reasons. Generalized weakness present. Myoclonus present.
Psych: Calm
A/P:
# Toxic metabolic encephalopathy (weakness/confusion multifactorial secondary to end-stage renal disease/hypoglycemia in the setting of diarrhea/decreased oral intake/insulin use/diabetes mellitus type 2,/recent hospitalization):
-Monitor mental status
-Off antibiotics. Obtain blood cultures
-Plan for hemodialysis today
-Resume Lantus--> avoid hypoglycemia but needs better blood pressure control. Blood sugars in the 300's elevated today.
-Insulin sliding scale, Accu-Cheks. Adjust insulin as needed
-Obtain old records.
-Discuss with son, Justin on 12/14--> in a nutshell, had recent bladder tumor and exchange sphincter; he also was treated for possible pneumonia; PD ineffective-transition to HD; was recommended rehab but refused.
-PT OT
-He is interested in physical therapy and or rehab.
#Leukocytosis:
-In light of patient vascular access and leukocytosis, will order blood cultures today on 12/14
-WBC 21---> 15-->13.4 today
-Obtain blood cultures. Follow-up blood cultures
-Off antibiotics.
-Continue to monitor trend
# Diarrhea secondary to antibiotic use, rule out C. difficile
-Check stool culture, norovirus, C. difficile
-BRAT diet
# Inability to manage peritoneal dialysis
# History of ESRD on peritoneal dialysis
-Nephrology to perform hemodialysis through AV fistula--> consulted nephrology today on 12/14
-Outpatient removal of PD catheter
-PT/OT for rehab
-Resume sevelamer
#Anemia
-Hemoglobin 8.8 today
-Continue to monitor
# Transaminitis
-Improving
-F/U outpatient
# Recent aspiration pneumonia
-Treated at [facility]
Secondary hyperparathyroidism
CAD status post CABG
Recent demand ischemia/NSTEMI
-Continue aspirin
Paroxysmal atrial fibrillation
-Continue amiodarone
Combined systolic/diastolic CHF
-Continue Lasix
Essential hypertension
-Continue clonidine, hydralazine
Prostate/bladder cancer status post recent prostatectomy and bladder scraping with chronic Sanches catheter
Hypercholesterolemia
-Continue statin, Zetia
Chronic constipation
-Continue MiraLAX
Chronic anemia
Diverticulosis
History of fatty liver
History of skin cancer
Depression
-Continue vilazodone
Cataract surgery
DNR/DNI
DVT prophylaxis-heparin
Anticipated Discharge: 24 - 48 hours
Subjective/Interval History
-
Date of Service: December 16, 2023
Patient more alert today. Less generalized weakness. Still having some myoclonus but much less. He is interested in physical therapy and or rehab.
Objective Data
-
Labs:
Laboratory Results
12/16/23
06:10
WBC 13.4 H
Hgb 8.8 L
Hct 25.7 L
Plt Count 219 D
Sodium 132 L
Potassium 3.8
Chloride 94 L
Carbon Dioxide 25
BUN 49 H
Creatinine 4.8 H*
Glucose 155 H
Calcium 8.0 L
Total Bilirubin 0.4
AST 53
ALT 51 H
Alkaline Phosphatase 76
Vital Signs:
Vital Signs
Temp Pulse Resp BP Pulse Ox
98.8 F 72 18 122/64 95
12/16/23 07:37 12/16/23 07:37 12/16/23 07:37 12/16/23 07:37 12/16/23 07:37
I&O
12/15/23 12/16/23 12/17/23
06:59 06:59 06:59
Intake Total 480 / 480 540 / 540
Output Total 50 / 50
Balance 480 / 480 490 / 490
[2023-12-16 11:06] LABS: Glucose - Point of Care 302 mg/dl (70-99)
[2023-12-16] MEDS: NOVOLOG FLEXPEN-LOW RESISTANCE 4 UNITS SC (11:24)
--- NOTE | 2023-12-16 15:21 | PTCARENOTE ---
Pt mentation much improved today. OOB to chair for several hours - max assist to stand and pivot d/t weakness and significant myoclonic jerks when standing. Is passing gas but no BM - declining miralax - says 'I'll take it tomorrow if I don't go
by then.' Pt understands need for rehab and is agreeable.
--- NOTE | 2023-12-16 15:48 | CM ---
Chart reviewed. Spoke with pt at bedside
Pt reports lives alone in 2 story home
Staying on FF of home
Reports does own shopping, meal prep, drives
DME includes - walker, cane, rollator, wheel chair
Has had [facility] in past
PCP - Dr Silverio
Pharm - [facility]
PT/OT - recs SNF - Given options from [email or web address]- family reviewing
Plan - anticipate snf at d/c
--- NOTE | 2023-12-16 15:50 | W.PN.NEPH.PH ---
Today's Communication / Plan
-
HD tomorrow
Assessment/Plan
-
Assessment:
History of colonic AVMs (APC February 2023, May 2023, Sep 30)
ESRD on PD (recent conversion from HD)
chronic combined Heart failure with reduced EF46%, DD stage2
CAD status post CABG 2018
Edema
Bladder CA status post TURBT
Prostate CA status post prostatectomy
Diabetes mellitus type 2
Hypertension multidrug
Hypercholesterolemia
Paroxysmal atrial fibrillation on anticoagulation
Secondary hyperparathyroidism
Chronic back pain requiring epidural injections
Left brachiocephalic AV fistula
Depression
Leukocytosis
Falls
Plan:
Dialysis tomorrow, may need to restrain access arm given twitching. He understands this
He has an outpatient Sunday schedule
Will use AV fistula
Will need PD catheter removed. This may be done as an outpatient (d/w Dr. Mills)
He is considering [facility]
-
-
Date of Service: December 16, 2023
CC / HPI / ROS
-
Chief Complaint:
ESRD
History of Present Illness:
tolerated HD yesterday
BP stable
PD fluid drained yesterday 750ml
Review of Systems:
no CP/SOB
Labs
-
Labs:
WBC 13.4 10^3/uL (4.8-10.8) H 12/16/23 06:10
RBC 2.60 10^6/uL (4.70-6.10) L 12/16/23 06:10
Hgb 8.8 g/dL (13.0-18.0) L 12/16/23 06:10
Hct 25.7 % (39.0-52.0) L 12/16/23 06:10
Plt Count 219 10^3/uL (130-400) D 12/16/23 06:10
Sodium 132 mmol/L (135-145) L 12/16/23 06:10
Potassium 3.8 mmol/L (3.5-5.1) 12/16/23 06:10
Chloride 94 mmol/L (98-107) L 12/16/23 06:10
Carbon Dioxide 25 mmol/L (22-30) 12/16/23 06:10
BUN 49 mg/dl (9-20) H 12/16/23 06:10
Creatinine 4.8 mg/dL (0.7-1.3) H* 12/16/23 06:10
eGFR 11.65 12/16/23 06:10
Glucose 155 mg/dl (70-99) H 12/16/23 06:10
Calcium 8.0 mg/dl (8.4-10.2) L 12/16/23 06:10
Albumin 2.8 g/dl (3.5-5.0) L 12/16/23 06:10
Physical Exam
-
Vital Signs:
Vital Signs
Temp Pulse Resp BP Pulse Ox
98.4 F 59 18 130/55 99
12/16/23 15:33 12/16/23 15:33 12/16/23 15:33 12/16/23 15:33 12/16/23 15:33
Cardiovascular:: Regular rate and rhythm
Respiratory:: Bilateral: Coarse
Lung Excursion:: Normal
Abdomen:: Nontender and Soft
Bowel Sounds:: Normal
Extremity Edema:: None: Bilateral:
[2023-12-16 16:34] LABS: Glucose - Point of Care 122 mg/dl (70-99)
[2023-12-16] MEDS: VITAMIN D3 (cholecalciferol) 125 MCG PO (17:47)
[2023-12-16] MEDS: ROXICODONE 5 MG PO (20:41)
[2023-12-16 21:45] LABS: Glucose - Point of Care 246 mg/dl (70-99)
[2023-12-16] MEDS: XALATAN OPHTHALMIC SOLUTION 1 DROP BOTH EYES (22:43)
[2023-12-16] MEDS: LANTUS 0.160000000000000003 UNITS SC (22:45)
[2023-12-17] VITALS (7 sets, daily range): BP systolic 111–168; BP diastolic 46–82; BMI 30.1
--- NOTE | 2023-12-17 07:16 | W.PN.HOSP.TC ---
Addendum entered and electronically signed by Shree Gallegos MD 12/17/23 15:42:
Chronic combined systolic diastolic congestive heart failure.
Original Note:
Today's Communication/Plan
-
Cont HD. PT OT
Assessment / Plan
Assessment / Plan
Physical exam:
General: Acute and chronically ill
HEENT: Normocephalic, Atraumatic and Moist Mucous Membranes
Respiratory: Decreased breath sounds and few crackles in bases; Negative Wheezes or Rhonchi
Cardiac: Regular Rhythm and S1/S2
GI: Soft, Nontender and Nondistended
Musculoskeletal: Bilateral edema. No Clubbing, No Cyanosis
Neuro: Lethargic but does respond to verbal stimuli, Oriented and does know that he is here in the hospital and reasons. Generalized weakness present. Myoclonus present.
Psych: Calm
A/P:
# Toxic metabolic encephalopathy (weakness/confusion multifactorial secondary to end-stage renal disease/hypoglycemia in the setting of diarrhea/decreased oral intake/insulin use/diabetes mellitus type 2,/recent hospitalization):
-Monitor mental status
-Off antibiotics. Follow up blood cultures but no growth so far.
-Hemodialysis per renal
-Resumed Lantus and blood sugars better- 136 today. No episode of hypoglycemia but cont to monitor.
-Insulin sliding scale, Accu-Cheks. Adjust insulin as needed
-Obtain old records.
-Discuss with son, Justin on 12/14--> in a nutshell, had recent bladder tumor and exchange sphincter; he also was treated for possible pneumonia; PD ineffective-transition to HD; was recommended rehab but refused.
-PT OT
-He is interested in rehab.
#Leukocytosis:
-In light of patient vascular access and leukocytosis, s/p ordered blood cultures on 12/14
-WBC 21---> 15-->13.4-->15.8 today
-Follow-up blood cultures
-Off antibiotics.
-Continue to monitor trend
# Diarrhea felt to be secondary to antibiotic use, rule out C. difficile. No BM reported here-will monitor
-Check stool culture, norovirus, C. difficile if diarrhea
-BRAT diet
# Inability to manage peritoneal dialysis
# History of ESRD on peritoneal dialysis
-Nephrology to perform hemodialysis through AV fistula--> consulted nephrology on 12/14 and started on HD.
-Outpatient removal of PD catheter
-PT/OT for rehab
-Resumed sevelamer
#Anemia
-stable
-Hemoglobin 8.6 today
-Continue to monitor
# Transaminitis
-Improving
-F/U outpatient
# Recent aspiration pneumonia
-Treated at [facility]
Secondary hyperparathyroidism
CAD status post CABG
Recent demand ischemia/NSTEMI
-Continue aspirin
Paroxysmal atrial fibrillation
-Continue amiodarone and asa
Combined systolic/diastolic CHF
-Continue Lasix
Essential hypertension
-Continue clonidine, hydralazine
Prostate/bladder cancer status post recent prostatectomy and bladder scraping with chronic Sanches catheter
Hypercholesterolemia
-Continue statin, Zetia
Chronic constipation
-Continue MiraLAX
Chronic anemia
Diverticulosis
History of fatty liver
History of skin cancer
Depression
-Continue vilazodone
Cataract surgery
DNR/DNI
DVT prophylaxis-heparin
Anticipated Discharge: 24 - 48 hours
Subjective/Interval History
-
Date of Service: December 17, 2023
Patient is more alert. He still has evidence of myoclonic jerks but much less. Afebrile.
Objective Data
-
Labs:
Laboratory Results
12/17/23
07:10
WBC Pending
Hgb Pending
Hct Pending
Plt Count Pending
Sodium Pending
Potassium Pending
Chloride Pending
Carbon Dioxide Pending
Vital Signs:
Vital Signs
Temp Pulse Resp BP Pulse Ox
99.0 F 66 18 124/46 98
12/17/23 03:10 12/17/23 03:10 12/17/23 03:10 12/17/23 03:10 12/17/23 03:10
I&O
12/16/23 12/17/23 12/18/23
06:59 06:59 06:59
Intake Total 540 / 540 840 / 840
Output Total 50 / 50 50 / 50
Balance 490 / 490 790 / 790
Review of Systems
-
All other systems: Reviewed and negative
[2023-12-17 07:54] LABS: Hematocrit 25.5 % (39.0-52.0); Hemoglobin 8.6 g/dL (13.0-18.0); Mean Corp Hgb Conc. 33.7 g/dL (33.0-37.0); Mean Corpuscular Hgb 33.6 pg (27.0-31.0); Mean Corpuscular Volume 99.6 fL (80.0-94.0); Mean Platelet Volume 11.4 fL (7.4-10.4); Platelet Count 214 10^3/uL (130-400); Red Blood Cell Count 2.56 10^6/uL (4.70-6.10); Red Cell Dist. Width 18.2 % (11.5-14.5); White Blood Cell Count 15.8 10^3/uL (4.8-10.8)
[2023-12-17 08:06] LABS: Carbon Dioxide 25 mmol/L (22-30); Chloride 95 mmol/L (98-107); Potassium 4.3 mmol/L (3.5-5.1); Sodium 129 mmol/L (135-145)
[2023-12-17 08:25] LABS: Glucose - Point of Care 136 mg/dl (70-99)
[2023-12-17] MEDS: NOVOLOG FLEXPEN-LOW RESISTANCE SC (08:32)
[2023-12-17] MEDS: RETACRIT 6000 UNITS IV (08:58)
[2023-12-17] MEDS: ROXICODONE 5 MG PO ×2 (10:21→19:44)
[2023-12-17] MEDS: RENVELA 2400 MG PO ×3 (11:55→17:16)
[2023-12-17] MEDS: CATAPRES 0.299999999999999989 MG PO ×2 (11:55→19:45)
[2023-12-17] MEDS: PACERONE 100 MG PO (11:55)
[2023-12-17] MEDS: LASIX 80 MG PO (11:56)
[2023-12-17] MEDS: APRESOLINE 50 MG PO (11:56)
[2023-12-17] MEDS: ZETIA 10 MG PO (11:56)
[2023-12-17] MEDS: HEPARIN 5000 UNITS SC ×2 (11:56→19:51)
[2023-12-17] MEDS: ASPIR LOW (ENTERIC COATED) 81 MG PO (11:56)
[2023-12-17] MEDS: LIPITOR 40 MG PO (11:57)
[2023-12-17 12:11] LABS: Glucose - Point of Care 174 mg/dl (70-99)
--- NOTE | 2023-12-17 12:12 | WOUNDNOTE ---
ROBERTO CARLOS (R MEDIAL;L ANTERIOR LATERAL)
--- NOTE | 2023-12-17 12:13 | WOUNDNOTE ---
L CALF (LATERAL POSTERIOR)
--- NOTE | 2023-12-17 12:13 | WOUNDNOTE ---
R CALF/ANKLE (MEDIAL)
--- NOTE | 2023-12-17 12:14 | WOUNDNOTE ---
L ANKLE/CALF (LOWER MEDIAL)
--- NOTE | 2023-12-17 12:14 | WOUNDNOTE ---
R 2ND TOE (DORSAL)
--- NOTE | 2023-12-17 12:14 | WOUNDNOTE ---
R CALF (POSTERIOR MEDIAL)
[2023-12-17] MEDS: NOVOLOG FLEXPEN-LOW RESISTANCE 1 UNITS SC (12:16)
--- NOTE | 2023-12-17 12:17 | WOUNDNOTE ---
L CALF/ANKLE (MEDIAL)
--- NOTE | 2023-12-17 12:18 | WOUNDNOTE ---
ROBERTO CARLOS (L LATERAL; R MEDIAL)
--- NOTE | 2023-12-17 12:23 | PN.CDI ---
CDI
- -
CDI:
Physician Documentation Request
Admit Date: 12/14/23 17:38
Dear Doctor El,
Clinical Indicators:
Patient admitted with toxic metabolic encephalopathy.
Home medications include: Furosemide 80 mg PO DAILY
3/4 PN, 'Combined systolic/diastolic CHF-Continue Lasix'
Please provide further specificity regarding the most likely acuity of the combined systolic/diastolic CHF you are evaluating, treating or monitoring.
Chronic combined systolic diastolic CHF
Other, please specify
Use of terms such as suspected, likely, concern for, or probable (associated with a specific diagnosis that is being evaluated, monitored, or treated as if it exists) are acceptable and can be coded in the inpatient setting, when documented at the
time of discharge.
Thank you,
MICAELA Prieto RN
CDI Specialist
available via tiger text
Please use your independent medical judgment in providing your response.
--- NOTE | 2023-12-17 12:29 | WOUNDNOTE ---
[facility] RN note: Patient admitted with diarrhea, hypoglycemia. Patient left from [facility] several days ago AMA from a GI bleed. As per physician note 'recent bladder tumor and exchange sphincter; he also was treated for possible pneumonia; PD
ineffective-transition to HD; was recommended rehab but refused'.
See H&P for complete history.
PMH: ESRD on HD, secondary hyperparathyroid, CABG, a fib (Eliquis), HTN, prostate CA, prostatectomy, DM, anemia, skin cancer, depression, former smoker, former ETOH abuse.
Wound Location and type/assessment: Patient admitted with: MASD perianal/buttocks skin. Bilateral Le scattered liner purple ecchymotic areas with some dry necrotic ulcers. Pedal pulses heard via portable Doppler. Suprapubic/scrotal bruising.
Patient sleepy but wakes up during care.
Appetite: on 2gm Sodium, 2 gm potassium, 1800 melissa ADA diet, 1200ml/day.
Pressure redistribution devices in place: Waffle air overlay. He lifts his legs independently.
Plan: Protective dressing applied to Le's (adaptic, ABD pad, spanage). Patient turned to R semi side lying position with help from RN Janeth. Heels off bed with air chair cushion.
[place] texted Dr. Gallegos and Dr. 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 Gallegos approved local care.
Care plan to be updated and will follow as needed.
Recommend follow up at wound care center upon discharge.
--- NOTE | 2023-12-17 13:29 | W.PN.NEPH.HD ---
Assessment
-
feeling well on HD
wants to get up and move
Progress Note - Hemodialysis
-
Date of Service: December 17, 2023
Duration: 30 minutes and 3 hours
Potassium Bath: 3
Calcium Bath: 2.5
Opti-Dialyzer: 160
Ultrafiltration: Other
Blood Flow: 400
Dialysate Flow: 600
Heparin: 500x1
EPO: 6K
--- NOTE | 2023-12-17 13:35 | WOUNDNOTE ---
[facility] RN note: Patient seen around 12:30pm. Patient admitted with diarrhea, hypoglycemia. Patient left from [facility] several days ago AMA from a GI bleed. As per physician note 'recent bladder tumor and exchange sphincter; he also was treated
for possible pneumonia; PD ineffective-transition to HD; was recommended rehab but refused'.
See H&P for complete history.
PMH: ESRD on HD, secondary hyperparathyroid, CABG, a fib (Eliquis), HTN, prostate CA, prostatectomy, DM, anemia, skin cancer, depression, former smoker, former ETOH abuse.
Wound Location and type/assessment: Patient admitted with: MASD perianal/buttocks skin. Bilateral Le scattered liner purple ecchymotic areas with some dry necrotic ulcers. Pedal pulses heard via portable Doppler. Suprapubic/scrotal bruising.
Patient sleepy but wakes up during care.
Appetite: on 2gm Sodium, 2 gm potassium, 1800 melissa ADA diet, 1200ml/day.
Pressure redistribution devices in place: Waffle air overlay. He lifts his legs independently.
Plan: Protective dressing applied to Le's (adaptic, ABD pad, spanage). Patient turned to R semi side lying position with help from RN Janeth. Heels off bed with air chair cushion.
[place] texted Dr. Gallegos and Dr. 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 Gallegos approved local care; Dr. Gamino responded that it didn't look like
calciphylaxis to her and see how it progresses with wound care.
Care plan to be updated and will follow as needed.
Recommend follow up at wound care center upon discharge.
[2023-12-17 16:57] LABS: Glucose - Point of Care 253 mg/dl (70-99)
[2023-12-17] MEDS: VITAMIN D3 (cholecalciferol) 125 MCG PO (17:16)
[2023-12-17] MEDS: NOVOLOG FLEXPEN-LOW RESISTANCE 3 UNITS SC (17:17)
[2023-12-17 21:29] LABS: Glucose - Point of Care 224 mg/dl (70-99)
[2023-12-17] MEDS: NON-FORMULARY ITEM PO ×3 (22:29→22:42)
[2023-12-17] MEDS: NON-FORMULARY ITEM 40 MG PO (22:34)
[2023-12-18] MEDS: LANTUS 0.160000000000000003 UNITS SC (00:27)
[2023-12-18] MEDS: ANTIFUNGAL CLEAR 1 APPLIC TOPICAL ×2 (00:29→08:18)
[2023-12-18] MEDS: XALATAN OPHTHALMIC SOLUTION 1 DROP BOTH EYES ×2 (00:34→23:03)
[2023-12-18] MEDS: ROXICODONE 5 MG PO ×2 (03:29→10:40)
[2023-12-18 06:00] VITALS: BMI 30.5
[2023-12-18 06:56] LABS: % Basophils 0.2 % (0-2); % Eosinophils 0.9 % (0-6); % Immature Granulocytes 1.1 % (0-0.5); % Lymphocytes 6.4 % (20.5-51.1); % Monocytes 16.3 % (1.7-9.3); % Neutrophils 75.1 % (42.2-75.2); Absolute Eosinophils 0.2 10^3/uL (0-0.7); Absolute Immature Granulocytes 0.2 10^3/uL (0-0.05); Absolute Lymphocytes 1.1 10^3/uL (1.2-3.4); Absolute Monocytes 2.9 10^3/uL (0.1-0.6); Absolute Neutrophils 13.3 10^3/uL (1.4-6.5); Hematocrit 27.8 % (39.0-52.0); Hemoglobin 8.9 g/dL (13.0-18.0); Mean Platelet Volume 11.5 fL (7.4-10.4); Nucleated Red Blood Cells % 0 % (-); Platelet Count 226 10^3/uL (130-400); Red Cell Dist. Width 18.5 % (11.5-14.5); White Blood Cell Count 17.7 10^3/uL (4.8-10.8)
[2023-12-18 07:25] LABS: Blood Urea Nitrogen 42 mg/dl (9-20); Calcium 8.1 mg/dl (8.4-10.2); Carbon Dioxide 29 mmol/L (22-30); Chloride 93 mmol/L (98-107); Estimated Creatinine Clearance 14 ml/min; Glucose 69 mg/dl (70-99); Potassium 4.8 mmol/L (3.5-5.1); Sodium 131 mmol/L (135-145)
[2023-12-18 07:26] VITALS: BP 164/63
--- NOTE | 2023-12-18 07:48 | W.PN.HOSP.TC ---
Addendum entered and electronically signed by Shree Gallegos MD 12/18/23 18:43:
Decrease Lantus in half tonight. If recurrent hypoglycemia after this change, he might not need to be on Lantus-->will reeval.
Original Note:
Today's Communication/Plan
-
CT of the head today. ID consult.
Assessment / Plan
Assessment / Plan
Physical exam:
General: Acute and chronically ill
HEENT: Normocephalic, Atraumatic and Moist Mucous Membranes
Respiratory: Decreased breath sounds and few crackles in bases; Negative Wheezes or Rhonchi
Cardiac: Regular Rhythm and S1/S2
GI: Soft, Nontender and Nondistended
Musculoskeletal: Bilateral edema. No Clubbing, No Cyanosis
Neuro: Lethargic but does respond to verbal stimuli. Generalized weakness present.
Psych: Calm
A/P:
# Toxic metabolic encephalopathy (weakness/confusion multifactorial secondary to end-stage renal disease/hypoglycemia in the setting of diarrhea/decreased oral intake/insulin use/diabetes mellitus type 2,/recent hospitalization):
-Monitor mental status
-Off antibiotics. Follow up blood cultures but no growth so far.
-Hemodialysis per renal
-Resumed Lantus and blood sugars better- 136 today. No episode of hypoglycemia but cont to monitor.
-Insulin sliding scale, Accu-Cheks. Adjust insulin as needed
-Obtain old records.
-Discuss with son, Justin on 12/14--> in a nutshell, had recent bladder tumor and exchange sphincter; he also was treated for possible pneumonia; PD ineffective-transition to HD; was recommended rehab but refused.
-PT OT
-He is interested in rehab.
#Leukocytosis:
-In light of patient vascular access and leukocytosis, s/p ordered blood cultures on 12/14
-WBC 21---> 15-->13.4-->15.8-->17.7 today
-I will request ID consult in light of her increasing leukocytosis for further evaluation and advise.
-Follow-up blood cultures
-Off antibiotics.
-Continue to monitor trend
# Diarrhea felt to be secondary to antibiotic use, rule out C. difficile. No BM reported here-will monitor
-Check stool culture, norovirus, C. difficile if diarrhea
-BRAT diet
# Inability to manage peritoneal dialysis
# History of ESRD on peritoneal dialysis
-Nephrology to perform hemodialysis through AV fistula--> consulted nephrology on 12/14 and started on HD.
-Outpatient removal of PD catheter
-PT/OT for rehab
-Resumed sevelamer
#Anemia
-stable
-Hemoglobin 8.6 today
-Continue to monitor
# Transaminitis
-Improving
-F/U outpatient
# Recent aspiration pneumonia
-Treated at [facility]
Secondary hyperparathyroidism
CAD status post CABG
Recent demand ischemia/NSTEMI
-Continue aspirin
Paroxysmal atrial fibrillation
-Continue amiodarone and asa
Combined systolic/diastolic CHF
-Continue Lasix
Essential hypertension
-Continue clonidine, hydralazine
Prostate/bladder cancer status post recent prostatectomy and bladder scraping with chronic Sanches catheter
Hypercholesterolemia
-Continue statin, Zetia
Chronic constipation
-Continue MiraLAX
Chronic anemia
Diverticulosis
History of fatty liver
History of skin cancer
Depression
-Continue vilazodone
Cataract surgery
DNR/DNI
DVT prophylaxis-heparin
Anticipated Discharge: 24 - 48 hours
Subjective/Interval History
-
Date of Service: December 18, 2023
Patient is a bit lethargic today but able to answer questions appropriately. No cough or diarrhea. No fever
Objective Data
-
Labs:
Laboratory Results
03/05/24
06:03
WBC 17.7 H
Hgb 8.9 L
Hct 27.8 L
Plt Count 226
Sodium 131 L
Potassium 4.8
Chloride 93 L
Carbon Dioxide 29
BUN 42 H
Creatinine 4.3 H*
Glucose 69 L
Calcium 8.1 L
Vital Signs:
Vital Signs
Temp Pulse Resp BP Pulse Ox
98.8 F 80 24 164/63 95
12/18/23 07:26 12/18/23 07:26 12/18/23 07:26 12/18/23 07:26 12/18/23 07:26
I&O
12/17/23 12/18/23 12/19/23
06:59 06:59 06:59
Intake Total 840 / 840 1140 / 1140
Output Total 50 / 50 75 / 75
Balance 790 / 790 1065 / 1065
[2023-12-18 07:56] LABS: Glucose - Point of Care 55 mg/dl (70-99)
[2023-12-18] MEDS: CATAPRES 0.299999999999999989 MG PO ×2 (08:11→20:22)
[2023-12-18] MEDS: RENVELA 2400 MG PO ×3 (08:11→17:28)
[2023-12-18] MEDS: LASIX 80 MG PO (08:11)
[2023-12-18] MEDS: ZETIA 10 MG PO (08:11)
[2023-12-18] MEDS: NEPHROCAP 1 CAPSULE PO (08:11)
[2023-12-18] MEDS: ASPIR LOW (ENTERIC COATED) 81 MG PO (08:11)
[2023-12-18] MEDS: HEPARIN 5000 UNITS SC ×2 (08:12→20:32)
[2023-12-18] MEDS: PACERONE 100 MG PO (08:12)
[2023-12-18] MEDS: APRESOLINE 50 MG PO (08:12)
[2023-12-18] MEDS: LIPITOR 40 MG PO (08:13)
[2023-12-18] MEDS: NOVOLOG FLEXPEN-LOW RESISTANCE SC ×3 (08:13→17:30)
[2023-12-18 08:14] LABS: Glucose - Point of Care 54 mg/dl (70-99)
[2023-12-18] MEDS: NON-FORMULARY ITEM 40 MG PO (08:19)
[2023-12-18 08:33] LABS: Glucose - Point of Care 52 mg/dl (70-99)
[2023-12-18] MEDS: DEXTROSE 50% SYRINGE 12.5 GRAMS IV (08:40)
[2023-12-18 09:01] LABS: Glucose - Point of Care 184 mg/dl (70-99)
[2023-12-18 11:03] LABS: Glucose - Point of Care 172 mg/dl (70-99)
--- NOTE | 2023-12-18 12:59 | W.PN.NEPH.PH ---
Today's Communication / Plan
-
HD tomorrow
Assessment/Plan
-
Assessment:
History of colonic AVMs (APC February 2023, May 2023, Sep 30)
ESRD on PD (recent conversion from HD)
chronic combined Heart failure with reduced EF46%, DD stage2
CAD status post CABG 2018
Edema
Bladder CA status post TURBT
Prostate CA status post prostatectomy
Diabetes mellitus type 2
Hypertension multidrug
Hypercholesterolemia
Paroxysmal atrial fibrillation on anticoagulation
Secondary hyperparathyroidism
Chronic back pain requiring epidural injections
Left brachiocephalic AV fistula
Depression
Leukocytosis
Falls
Plan:
Dialysis tomorrow, may need to restrain access arm given twitching. He understands this
He has an outpatient Sunday schedule
Will use AV fistula
Will need PD catheter removed. This may be done as an outpatient (d/w Dr. Mills)
Patient is consider different care facilities
-
-
Date of Service: December 18, 2023
CC / HPI / ROS
-
Chief Complaint:
ESRD
History of Present Illness:
tolerated HD yesterday
BP stable
Review of Systems:
no CP/SOB
Labs
-
Labs:
WBC 17.7 10^3/uL (4.8-10.8) H 12/18/23 06:03
RBC 2.70 10^6/uL (4.70-6.10) L 12/18/23 06:03
Hgb 8.9 g/dL (13.0-18.0) L 12/18/23 06:03
Hct 27.8 % (39.0-52.0) L 12/18/23 06:03
Plt Count 226 10^3/uL (130-400) 12/18/23 06:03
Sodium 131 mmol/L (135-145) L 12/18/23 06:03
Potassium 4.8 mmol/L (3.5-5.1) 12/18/23 06:03
Chloride 93 mmol/L (98-107) L 12/18/23 06:03
Carbon Dioxide 29 mmol/L (22-30) 12/18/23 06:03
BUN 42 mg/dl (9-20) H 12/18/23 06:03
Creatinine 4.3 mg/dL (0.7-1.3) H* 12/18/23 06:03
eGFR 13.30 12/18/23 06:03
Glucose 69 mg/dl (70-99) L 12/18/23 06:03
Calcium 8.1 mg/dl (8.4-10.2) L 12/18/23 06:03
Albumin 2.8 g/dl (3.5-5.0) L 12/16/23 06:10
Physical Exam
-
Vital Signs:
Vital Signs
Temp Pulse Resp BP Pulse Ox
98.8 F 80 24 164/63 95
12/18/23 07:26 12/18/23 07:26 12/18/23 07:26 12/18/23 07:26 12/18/23 07:26
Cardiovascular:: Regular rate and rhythm
Respiratory:: Bilateral: CTA
Lung Excursion:: Normal
Abdomen:: Nontender and Soft
Bowel Sounds:: Normal
Extremity Edema:: +1: Bilateral:
Sanches Catheter: Yes
[2023-12-18 13:20] LABS: Glucose - Point of Care 95 mg/dl (70-99)
--- NOTE | 2023-12-18 13:30 | CM ---
Reviewed chart, PT/OT indicating SNF. Met with patient to discuss indications. Patient was firm that he won't go to SNF. He stated he is weak from laying in bed. CM advised that is often why people go to SNF prior to going home. He was very firm
that he would not even select any facilities. Patient stated that he would be agreeable to VN services and stated he is current through . Will continue to make recommendations for a safe discharge.
Plan: Case management will continue to follow and assist with discharge planning. Patient would like VN services through . He stated that he is current.
--- NOTE | 2023-12-18 14:33 | CON.ID ---
Consultation
-
Date/Time Consultation Requested: 12/18/2023 07:43
Date/Time Consultation Performed: 12/18/2023 1430
Requesting Provider: Dr. Gallegos
Performing Provider: Dr. Galeana
Reason for Consultation: Leukocytosis
Chief Complaint / Past History
History of Present Illness
Charles Dorsey is a 78-year-old male with a significant past medical history of ESRD � HD being evaluated at the request of Dr. Gallegos regarding leukocytosis. History is obtained from chart review, along with patient interview.
Admitted to [facility] on 12/13 secondary to weakness and change in mental status. In the triage area he was found to have a low blood sugar. At admission, he was found to have a leukocytosis which improved over the next 2 days, only to rise
again over the past 48 hours.
The patient has a history of hemodialysis, and recently changed back to peritoneal dialysis following an admission at [facility], where he underwent urinary sphincter explantation. During that admission he was changed back to hemodialysis, but
the Tenckhoff catheter remains in place.
At this time, history is limited from the patient. Specifically, though, he denies any fevers or chills. He denies any pain in the abdomen or the groin at the site of prior surgery. A Sanches catheter remains in place at this time. No reported
diarrhea at the present time.
Past History
Additional Past Medical History:
CAD
Prostate/bladder cancer
HTN
Dyslipidemia
DM
ESRD � HD
Additional Past Surgical History:
CABG
Prostatectomy
Bladder scraping
Bladder sphincter with subsequent explantation
Allergy History:
amlodipine Allergy (Verified 10/12/23 05:04)
edema
Medications Reviewed: Yes
Current Antibiotics:
None
Social History
Tobacco: Non-Smoker
Alcohol: Daily
Drug: None
Personal:
Living: With Family
Employment: Retired
Family History
Family History: Not Pertinent
Review of Systems
Vital Signs
Temp Pulse Resp BP Pulse Ox
98.8 F 80 24 164/63 95
12/18/23 07:26 12/18/23 07:26 12/18/23 07:26 12/18/23 07:26 12/18/23 07:26
Physical Exam
Physical Exam
Constitutional: No Acute Distress, Comfortable, Chronically Ill and Non-toxic
Head: Normocephalic
Eyes: Pupils Equal, Pupils Round, No Conjunctival Hemorrhage and Sclera Anicteric
Oral: No Thrush and No Ulcers
Cardiovascular: Regular Rate and S1/S2; Negative S3/S4 or Murmur
Pulmonary: Clear; Negative Wheezes, Rales or Rhonchi
Gastrointestinal: Soft, Non Tender, Non Distended, Normal Bowel Sounds, No Rebound, No Guarding and Other (Tenckhoff catheter in place.)
Genito-Urinary: Sanches and Hematuria
Extremities: Erythema and Other (Areas of ecchymosis on the lower extremities noted. Left UE AVF); Negative Edema or Cyanosis
Skin: Warm and Dry; Negative Rash or Jaundice
Neurological: Awake and Alert
Psychological: Calm and Confused
.
Lab / Diagnostic Study Results
12/18/23 06:03
12/18/23 06:03
Abs Immat Gran (auto) 0.2 10^3/uL (0-0.05) H 12/18/23 06:03
Absolute Neuts (auto) 13.3 10^3/uL (1.4-6.5) H 12/18/23 06:03
Absolute Lymphs (auto) 1.1 10^3/uL (1.2-3.4) L 12/18/23 06:03
Absolute Monos (auto) 2.9 10^3/uL (0.1-0.6) H 12/18/23 06:03
Absolute Basos (auto) 0.0 10^3/uL (0-0.2) 12/18/23 06:03
Total Counted 100 12/14/23 13:58
Immature Gran % 1.1 % (0-0.5) H 12/18/23 06:03
Neutrophils % 75.1 % (42.2-75.2) 12/18/23 06:03
Lymphocytes % 6.4 % (20.5-51.1) L 12/18/23 06:03
Monocytes % 16.3 % (1.7-9.3) H 12/18/23 06:03
Eosinophils % 0.9 % (0-6) 12/18/23 06:03
Basophils % 0.2 % (0-2) 12/18/23 06:03
Abs Neuts (Manual) 15.7 10^3/uL (1.4-6.5) H 12/14/23 13:58
Segmented Neutrophils 75 % (42-75) 12/14/23 13:58
Band Neutrophils 0 % (0-3) 12/14/23 13:58
Lymphocytes (Manual) 6 % (20-51) L 12/14/23 13:58
Microbiology Results
Micro:
12/15/23 15:00 Blood Culture - Preliminary
Blood/Venous No Growth in 48 hours- Final report to follow
12/15/23 15:00 Blood Culture - Preliminary
Blood/Venous No Growth in 48 hours- Final report to follow
Imaging:
12/18/2023 CT head without contrast: No acute intracranial abnormality noted. Mild to moderate age-related parenchymal atrophy. Chronic lacunar infarcts in the caudate heads. Small chronic infarct inferior to the right frontal horn. No intra or
extra-axial mass, hemorrhage or fluid collections noted. Please see full dictation for additional detail. Film personally viewed.
Assessment / Plan
Leukocytosis
- not clear if stress reaction or infectious process
Encephalopathy; likely toxic � metabolic
CAD
Prostate/bladder cancer
HTN
Dyslipidemia
DM
ESRD � HD
Recommendations:
Are present, no immediately identifiable source of the rising leukocytosis seen
- possibilities include peritoneum (from SBP), pelvic (given recent surgery), UTI (given chronic Sanches)
� At present, patient without any complaints of pain or discomfort in these areas, though.
Would continue off antibiotics for the present time.
Monitor white count closely for worsening or improvement.
Monitor temperature curve.
If white count persists, further W/U may include peritoneal fluid Cx, urine culture and/or further imaging studies.
[2023-12-18 15:00] VITALS: BP 121/58
[2023-12-18 17:08] LABS: Glucose - Point of Care 126 mg/dl (70-99)
[2023-12-18] MEDS: VITAMIN D3 (cholecalciferol) 125 MCG PO (17:29)
[2023-12-18] MEDS: ANTIFUNGAL CLEAR TOPICAL (20:18)
[2023-12-18] MEDS: LANTUS 0.0800000000000000017 UNITS SC (22:09)
[2023-12-18 22:10] LABS: Glucose - Point of Care 124 mg/dl (70-99)
[2023-12-18 22:53] VITALS: BP 130/59
[2023-12-19 06:00] VITALS: BMI 30.5
[2023-12-19 07:31] VITALS: BP 150/48
[2023-12-19] MEDS: HEPARIN 500 UNITS IV (08:05)
[2023-12-19 08:09] LABS: Glucose - Point of Care 56 mg/dl (70-99)
[2023-12-19 08:15] LABS: Hematocrit 26.8 % (39.0-52.0); Hemoglobin 8.8 g/dL (13.0-18.0); Mean Corp Hgb Conc. 32.8 g/dL (33.0-37.0); Mean Corpuscular Hgb 33.2 pg (27.0-31.0); Mean Corpuscular Volume 101.1 fL (80.0-94.0); Mean Platelet Volume 11.5 fL (7.4-10.4); Platelet Count 198 10^3/uL (130-400); Red Blood Cell Count 2.65 10^6/uL (4.70-6.10); Red Cell Dist. Width 18.2 % (11.5-14.5); White Blood Cell Count 15.7 10^3/uL (4.8-10.8)
[2023-12-19 08:28] LABS: Glucose - Point of Care 88 mg/dl (70-99)
[2023-12-19 08:44] LABS: Blood Urea Nitrogen 61 mg/dl (9-20); Calcium 8.2 mg/dl (8.4-10.2); Carbon Dioxide 25 mmol/L (22-30); Chloride 91 mmol/L (98-107); Estimated Creatinine Clearance 10 ml/min; Glucose 44 mg/dl (70-99); Potassium 5.7 mmol/L (3.5-5.1); Sodium 126 mmol/L (135-145)
[2023-12-19] MEDS: RETACRIT 6000 UNITS IV (08:50)
--- NOTE | 2023-12-19 10:18 | W.PN.NEPH.HD ---
Assessment
-
Patient seen on HD
noted for continued myoclonic jerks
patient angry at my HD nurse for restraining arm due to jerks, mental status is off
Progress Note - Hemodialysis
-
Date of Service: December 19, 2023
Duration: 30 minutes and 3 hours
Potassium Bath: 2
Calcium Bath: 2.5
Opti-Dialyzer: 160
Ultrafiltration: Other (2.5 kg)
Blood Flow: 400
Dialysate Flow: 600
Heparin: 500 times two
EPO: 6K
--- NOTE | 2023-12-19 10:45 | W.PN.HOSP.TC ---
Today's Communication/Plan
-
reduce lantus
HD today
ID recs
PT/OT
monitor mentation
Assessment / Plan
Assessment / Plan
Physical exam:
General: Acute and chronically ill
HEENT: Normocephalic, Atraumatic and Moist Mucous Membranes
Respiratory: Decreased breath sounds and few crackles in bases; Negative Wheezes or Rhonchi
Cardiac: Regular Rhythm and S1/S2
GI: Soft, Nontender and Nondistended
Musculoskeletal: Bilateral edema. No Clubbing, No Cyanosis
Neuro: Generalized weakness present.
Psych: Calm
A/P:
# Toxic metabolic encephalopathy (weakness/confusion multifactorial secondary to end-stage renal disease/hypoglycemia in the setting of diarrhea/decreased oral intake/insulin use/diabetes mellitus type 2,/recent hospitalization):
-Monitor mental status
-Off antibiotics. Follow up blood cultures but no growth so far.
-Hemodialysis per renal
-Resumed Lantus but will decrase dose further to 4u. POC not accurate ?due to PVD.
-Insulin sliding scale, Accu-Cheks. Adjust insulin as needed
-Obtain old records.
-in a nutshell, had recent bladder tumor and exchange sphincter; he also was treated for possible pneumonia; PD ineffective-transition to HD; was recommended rehab but refused.
-PT OT
-CT head with chronic changes . Chronic infarcts noted.
-He is interested in rehab.
#Leukocytosis:
-In light of patient vascular access and leukocytosis, s/p ordered blood cultures on 12/14
-WBC 15.7
-Follow-up blood cultures
-Off antibiotics.
-Continue to monitor trend
-ID on board.
# Diarrhea felt to be secondary to antibiotic use, rule out C. difficile. No BM reported here-will monitor
-Check stool culture, norovirus, C. difficile if diarrhea
-BRAT diet
# Inability to manage peritoneal dialysis
# History of ESRD on peritoneal dialysis
-Nephrology to perform hemodialysis through AV fistula--> consulted nephrology on 12/14 and started on HD.
-Outpatient removal of PD catheter
-PT/OT for rehab
-Resumed sevelamer
#Anemia
-stable
-Hemoglobin 8.8 today
-Continue to monitor
# Transaminitis
-Improving
-F/U outpatient
# Recent aspiration pneumonia
-Treated at [facility]
Secondary hyperparathyroidism
CAD status post CABG
Recent demand ischemia/NSTEMI
-Continue aspirin
Paroxysmal atrial fibrillation
-Continue amiodarone and asa
Combined systolic/diastolic CHF
-Continue Lasix
Essential hypertension
-Continue clonidine, hydralazine
Prostate/bladder cancer status post recent prostatectomy and bladder scraping with chronic Sanches catheter
Hypercholesterolemia
-Continue statin, Zetia
Chronic constipation
-Continue MiraLAX
Chronic anemia
Diverticulosis
History of fatty liver
History of skin cancer
Depression
-Continue vilazodone
Cataract surgery
DNR/DNI
DVT prophylaxis-heparin
Anticipated Discharge: > 48 hours
Subjective/Interval History
-
Date of Service: December 19, 2023
seen on HD
wakes up and answers question
due to twitching RUE in restraints
Objective Data
-
Labs:
Laboratory Results
12/19/23
07:37
WBC 15.7 H
Hgb 8.8 L
Hct 26.8 L
Plt Count 198
Sodium 126 L
Potassium 5.7 H
Chloride 91 L
Carbon Dioxide 25
BUN 61 H
Creatinine 5.9 H*
Glucose 44 L*
Calcium 8.2 L
Vital Signs:
Vital Signs
Temp Pulse Resp BP Pulse Ox
98.6 F 70 16 150/48 92
12/19/23 07:31 12/19/23 07:31 12/19/23 07:31 12/19/23 07:31 12/19/23 07:31
I&O
12/18/23 12/19/23 12/20/23
06:59 06:59 06:59
Intake Total 1140 / 1140 840 / 840
Output Total 75 / 75 425 / 425
Balance 1065 / 1065 415 / 415
Data Reviewed
-
Total Time Spent with Patient (in minutes): 55
[2023-12-19 11:21] LABS: Glucose - Point of Care 69 mg/dl (70-99)
[2023-12-19] MEDS: NOVOLOG FLEXPEN-LOW RESISTANCE SC ×3 (11:36→16:40)
[2023-12-19] MEDS: CATAPRES PO (11:37)
[2023-12-19] MEDS: RENVELA PO (11:38)
[2023-12-19] MEDS: HEPARIN SC ×2 (11:38→21:41)
[2023-12-19 11:50] LABS: Glucose - Point of Care 80 mg/dl (70-99)
[2023-12-19] MEDS: ZETIA 10 MG PO (12:13)
[2023-12-19] MEDS: LIPITOR 40 MG PO (12:14)
[2023-12-19] MEDS: ASPIR LOW (ENTERIC COATED) 81 MG PO (12:14)
[2023-12-19] MEDS: PACERONE 100 MG PO (12:14)
[2023-12-19] MEDS: APRESOLINE 50 MG PO (12:15)
[2023-12-19] MEDS: ANTIFUNGAL CLEAR 1 APPLIC TOPICAL ×2 (12:16→20:33)
[2023-12-19] MEDS: NON-FORMULARY ITEM 40 MG PO (12:16)
[2023-12-19] MEDS: LASIX 80 MG PO (12:19)
[2023-12-19] MEDS: NEPHROCAP 1 CAPSULE PO (12:19)
[2023-12-19] MEDS: RENVELA 2400 MG PO ×2 (12:22→16:40)
[2023-12-19 15:01] VITALS: BP 152/61; PULSE 75
--- NOTE | 2023-12-19 15:01 | CM ---
Reviewed chart, placed a call to patient's son to discuss discharge planning. Patient's son is in agreement that patient needs SNF and will not do well at home. He stated that he spoke with patient's daughter and they are in agreement that patient
needs to transfer. He selected: [facility] and [facility] (which was indicated by Nephrology).
Patient's son stated that he will be in this evening and will talk to patient about transferring to a SNF. Will make referrals.
Plan: Case management will continue to follow and assist with discharge planning. Will make referrals.
[2023-12-19 15:16] VITALS: BP 152/61
[2023-12-19] MEDS: ROXICODONE 5 MG PO ×2 (15:28→21:42)
[2023-12-19 15:31] VITALS: BP 150/59
[2023-12-19 16:42] LABS: Glucose - Point of Care 79 mg/dl (70-99)
[2023-12-19] MEDS: VITAMIN D3 (cholecalciferol) 125 MCG PO (17:22)
--- NOTE | 2023-12-19 17:29 | W.PN.ID1 ---
Date of Service
Date of Service: December 19, 2023
Today's Communication
Observe off antibiotics.
Assessment / Plan
Leukocytosis
- not clear if stress reaction or infectious process
Encephalopathy; likely toxic � metabolic
CAD
Prostate/bladder cancer
HTN
Dyslipidemia
DM
ESRD � HD
Recommendations:
Are present, no immediately identifiable source of leukocytosis seen
- possibilities include peritoneum (from SBP), pelvic (given recent surgery), UTI (given chronic Asnches)
� At present, patient without any complaints of pain or discomfort in these areas, though.
Would continue off antibiotics for the present time.
Monitor white count closely for worsening or improvement.
Monitor temperature curve.
If leukocytosis persists, would check CT pelvis given recent surgery.
Chief Complaint
-: Leukocytosis
Subjective / Review of Systems
Review of Systems: No Fever
Vital Signs / Physical Exam
Vital Signs
Vital Signs
Temp Pulse Resp BP Pulse Ox
98.5 F 73 17 150/59 94
12/19/23 15:31 12/19/23 15:31 12/19/23 15:31 12/19/23 15:31 12/19/23 15:31
Physical Exam
Constitutional: Comfortable, Chronically Ill and Non-toxic
Eyes: Sclera Anicteric
Cardiovascular: S1/S2; Negative S3/S4
Pulmonary: Non Labored; Negative Wheezes or Rales
Gastrointestinal: Soft and Non Distended
Genito-Urinary: Sanches and Hematuria
Extremities: Erythema; Negative Edema
Neurological: Other (Arousable.)
Psychological: Calm
Objective Data
Lab Data
Lab Results
12/19/23 07:37
12/19/23 07:37
Estimated Creat Clear 10 ml/min 12/19/23 07:37
Total Bilirubin 0.4 mg/dl (0.2-1.3) 12/16/23 06:10
AST 53 U/L (17-59) 12/16/23 06:10
ALT 51 U/L (0-50) H 12/16/23 06:10
Alkaline Phosphatase 76 U/L (38-126) 12/16/23 06:10
Most recent labs reviewed.
Micro Results:
12/15/23 15:00 Blood Culture - Preliminary
Blood/Venous No Growth in 4 days- Final report to follow
12/15/23 15:00 Blood Culture - Preliminary
Blood/Venous No Growth in 4 days- Final report to follow
Imaging:
12/18/2023 CT head without contrast: No acute intracranial abnormality noted. Mild to moderate age-related parenchymal atrophy. Chronic lacunar infarcts in the caudate heads. Small chronic infarct inferior to the right frontal horn. No intra or
extra-axial mass, hemorrhage or fluid collections noted. Please see full dictation for additional detail. Film personally viewed.
[2023-12-19] MEDS: CATAPRES 0.299999999999999989 MG PO (20:36)
[2023-12-19 22:06] LABS: Glucose - Point of Care 212 mg/dl (70-99)
[2023-12-19] MEDS: LANTUS 0.0400000000000000008 UNITS SC (22:57)
[2023-12-19] MEDS: XALATAN OPHTHALMIC SOLUTION 1 DROP BOTH EYES (22:57)
[2023-12-19 23:00] VITALS: BP 117/85
[2023-12-20 02:33] LABS: Glucose - Point of Care 112 mg/dl (70-99)
[2023-12-20 06:00] VITALS: BMI 30.1
[2023-12-20 07:32] LABS: Glucose - Point of Care 116 mg/dl (70-99)
[2023-12-20 07:49] VITALS: BP 130/56
[2023-12-20 07:57] LABS: Hematocrit 25.6 % (39.0-52.0); Hemoglobin 8.4 g/dL (13.0-18.0); Mean Corp Hgb Conc. 32.8 g/dL (33.0-37.0); Mean Corpuscular Hgb 33.6 pg (27.0-31.0); Mean Corpuscular Volume 102.4 fL (80.0-94.0); Mean Platelet Volume 11.6 fL (7.4-10.4); Platelet Count 200 10^3/uL (130-400); Red Cell Dist. Width 18.6 % (11.5-14.5); White Blood Cell Count 12.3 10^3/uL (4.8-10.8)
[2023-12-20] MEDS: ZETIA 10 MG PO (08:11)
[2023-12-20] MEDS: NOVOLOG FLEXPEN-LOW RESISTANCE SC (08:11)
[2023-12-20] MEDS: NEPHROCAP 1 CAPSULE PO (08:11)
[2023-12-20] MEDS: LIPITOR 40 MG PO (08:11)
[2023-12-20] MEDS: RENVELA 2400 MG PO ×3 (08:12→17:57)
[2023-12-20] MEDS: ASPIR LOW (ENTERIC COATED) 81 MG PO (08:12)
[2023-12-20] MEDS: CATAPRES 0.299999999999999989 MG PO ×2 (08:16→20:29)
[2023-12-20] MEDS: APRESOLINE 50 MG PO (08:16)
[2023-12-20] MEDS: PACERONE 100 MG PO (08:16)
[2023-12-20] MEDS: LASIX 80 MG PO (08:16)
[2023-12-20] MEDS: NON-FORMULARY ITEM 40 MG PO (08:18)
[2023-12-20] MEDS: ANTIFUNGAL CLEAR 1 APPLIC TOPICAL ×2 (08:23→20:30)
[2023-12-20 09:45] LABS: Absolute Neutrophils -Man Diff 7.8 10^3/uL (1.4-6.5); Band Neutrophils 0 % (0-3); Lymphocytes 11 % (20-51); Monocytes 25 % (2-9); Segmented Neutrophils 64 % (42-75)
[2023-12-20 09:46] LABS: Anisocytosis 1+; Hypochromasia 1+; Macrocytosis Slight; Normal RBC Morphology No; Platelets Checked Yes; Polychromasia 1+; Total Cells Counted 100
[2023-12-20] MEDS: HEPARIN SC (09:48)
--- NOTE | 2023-12-20 11:00 | W.PN.HOSP.TC ---
Today's Communication/Plan
-
urology consultation
Monitor urine
Monitor mentation
Trend CBC
Assessment / Plan
Assessment / Plan
Physical exam:
General: Acute and chronically ill
HEENT: Normocephalic, Atraumatic and Moist Mucous Membranes
Respiratory: Decreased breath sounds and few crackles in bases; Negative Wheezes or Rhonchi
Cardiac: Regular Rhythm and S1/S2
GI: Soft, Nontender and Nondistended
Musculoskeletal: Bilateral edema. No Clubbing, No Cyanosis
Neuro: Generalized weakness present.
�Sanches with hematuria
Psych: Calm
A/P:
# Toxic metabolic encephalopathy (weakness/confusion multifactorial secondary to end-stage renal disease/hypoglycemia in the setting of diarrhea/decreased oral intake/insulin use/diabetes mellitus type 2,/recent hospitalization):
-Monitor mental status
-Off antibiotics. Follow up blood cultures but no growth so far.
-Hemodialysis per renal
-Resumed Lantus but will decrase dose further to 4u. POC not accurate ?due to PVD.
-Insulin sliding scale, Accu-Cheks. Adjust insulin as needed
-Obtain old records.
-he also was treated for possible pneumonia; PD ineffective-transition to HD; was recommended rehab but refused.
-PT OT recommends-patient agreeable for rehab.
-CT head with chronic changes . Chronic infarcts noted.
-He is interested in rehab.
#Leukocytosis:
-In light of patient vascular access and leukocytosis, s/p ordered blood cultures on 12/14
-WBC 15.7 to 12.3.
-Follow-up blood cultures negative so far
-Off antibiotics.
-Continue to monitor trend
-ID on board.
# Hematuria in the setting of recent had recent bladder tumor and exchange sphincter;
#Prostate/bladder cancer status post recent prostatectomy and bladder scraping with chronic Sanches catheter
-Urology has been consulted.
# Diarrhea felt to be secondary to antibiotic use, rule out C. difficile. No BM reported here-will monitor
-No diarrhea
-BRAT diet
# Inability to manage peritoneal dialysis
# History of ESRD on peritoneal dialysis
-Nephrology to perform hemodialysis through AV fistula--> consulted nephrology on 12/14 and started on HD.
-Outpatient removal of PD catheter
-PT/OT for rehab
-Resumed sevelamer
#Anemia
-stable
-Hemoglobin 8.4 today
-Continue to monitor
#IDDM with hypogylcemia
-lantus 4u and iss.
# Transaminitis
-Improving
-F/U outpatient
# Recent aspiration pneumonia
-Treated at [facility]
Secondary hyperparathyroidism
CAD status post CABG
Recent demand ischemia/NSTEMI
-Continue aspirin
Paroxysmal atrial fibrillation
-Continue amiodarone and asa
Combined systolic/diastolic CHF
-Continue Lasix
Essential hypertension
-Continue clonidine, hydralazine
Hypercholesterolemia
-Continue statin, Zetia
Chronic constipation
-Continue MiraLAX
Chronic anemia
Diverticulosis
History of fatty liver
History of skin cancer
Depression
-Continue vilazodone
Cataract surgery
DNR/DNI
DVT prophylaxis-SCDs in the setting of hematuria
Anticipated Discharge: > 48 hours
Subjective/Interval History
-
Date of Service: December 20, 2023
Patient with patient with hematuria.
Patient denies any groin pain
Tolerating breakfast
Awake alert and oriented
Objective Data
-
Labs:
Laboratory Results
12/20/23
07:38
WBC 12.3 H
Hgb 8.4 L
Hct 25.6 L
Plt Count 200
Vital Signs:
Vital Signs
Temp Pulse Resp BP Pulse Ox
98.9 F 67 17 130/56 95
12/20/23 07:49 12/20/23 07:49 12/20/23 07:49 12/20/23 07:49 12/20/23 07:49
I&O
12/19/23 12/20/23 12/21/23
06:59 06:59 06:59
Intake Total 840 / 840
Output Total 425 / 425 75 / 75
Balance 415 / 415 -75 / -75
Data Reviewed
-
Total Time Spent with Patient (in minutes): 55
[2023-12-20 11:29] LABS: Glucose - Point of Care 213 mg/dl (70-99)
--- NOTE | 2023-12-20 11:39 | W.PN.NEPH.PH ---
Today's Communication / Plan
-
HD tomorrow
PD catheter removal tomorrow
Assessment/Plan
-
Assessment:
History of colonic AVMs (APC February 2023, May 2023, Sep 30)
ESRD on PD (recent conversion from HD)
chronic combined Heart failure with reduced EF46%, DD stage2
CAD status post CABG 2018
Edema
Bladder CA status post TURBT
Prostate CA status post prostatectomy
Diabetes mellitus type 2
Hypertension multidrug
Hypercholesterolemia
Paroxysmal atrial fibrillation on anticoagulation
Secondary hyperparathyroidism
Chronic back pain requiring epidural injections
Left brachiocephalic AV fistula
Depression
Leukocytosis
Falls
Plan:
Dialysis tomorrow, will likley need to restrain access arm given twitching, mental status remains off
He has an outpatient Sunday schedule
Will use AV fistula
PD catheter removal tomorrow
for urology consult re: macro hematuria
Patient is consider different care facilities
-
-
Date of Service: December 20, 2023
CC / HPI / ROS
-
Chief Complaint:
ESRD
History of Present Illness:
ESRD MWF
BP stable
Review of Systems:
no CP/SOB
mental status with some improvement, myoclonic jerks persists
macrohematuria via che
Labs
-
Labs:
WBC 12.3 10^3/uL (4.8-10.8) H 12/20/23 07:38
RBC 2.50 10^6/uL (4.70-6.10) L 12/20/23 07:38
Hgb 8.4 g/dL (13.0-18.0) L 12/20/23 07:38
Hct 25.6 % (39.0-52.0) L 12/20/23 07:38
Plt Count 200 10^3/uL (130-400) 12/20/23 07:38
Sodium 126 mmol/L (135-145) L 12/19/23 07:37
Potassium 5.7 mmol/L (3.5-5.1) H 12/19/23 07:37
Chloride 91 mmol/L (98-107) L 12/19/23 07:37
Carbon Dioxide 25 mmol/L (22-30) 12/19/23 07:37
BUN 61 mg/dl (9-20) H 12/19/23 07:37
Creatinine 5.9 mg/dL (0.7-1.3) H* 12/19/23 07:37
eGFR 9.10 12/19/23 07:37
Glucose 44 mg/dl (70-99) L* 12/19/23 07:37
Calcium 8.2 mg/dl (8.4-10.2) L 12/19/23 07:37
Albumin 2.8 g/dl (3.5-5.0) L 12/16/23 06:10
Physical Exam
-
Vital Signs:
Vital Signs
Temp Pulse Resp BP Pulse Ox
98.9 F 67 17 130/56 95
12/20/23 07:49 12/20/23 07:49 12/20/23 07:49 12/20/23 07:49 12/20/23 07:49
Cardiovascular:: Regular rate and rhythm
Lung Excursion:: Normal
Abdomen:: Nontender and Soft
Bowel Sounds:: Decreased
Extremity Edema:: +1: Bilateral:
Che Catheter: Yes
--- NOTE | 2023-12-20 12:01 | CONS.URO ---
Consultation
-
Performing Provider: Peffer
Reason for Consultation: Hematuria
Medical History
History of Present Illness
78M with complex urologic hx, EDRD, anemia
Known in the past to Dr. Morrell, now Dr. Burnham, for bladder cancer, prostate cancer, urinary incontinence
History of prostatectomy and subsequent artificial urinary sphincter
He has bladder cancer which has become somewhat more aggressive and rapidly recurrent, managed currently with periodic TURBT by Dr. Burnham
About 2 weeks ago he had a TURBT which was uncomplicated, but his artifical sphincter was noted to have eroded into his urethra and was subsequently explanted
A 14fr che was placed which has been in position since with intermittent gross hematuria
He makes very little urine at baseline
Current plan is for catheter removal in the next few weeks
He is now admitted with TME in the setting of ESRD, recent hospitalization, diarrhea and decreased PO intake
Leukocytosis on admission without a clear source identified, currently stable off antibiotics
Urology consulted due to gross hematuria in che
Past Medical History
Past Medical History: Other (As above, also See H&P)
Past Surgical History: Urological (as above)
Social History
Tobacco: Non-smoker
Alcohol: None
Drug: None
Family History
Family History: Reviewed & Not Pertinent
Allergies/Home Medications
Allergies
Allergy/AdvReac Type Severity Reaction Status Date / Time
amlodipine Allergy edema Verified 10/12/23 05:04
Home Medications
Medication Instructions Recorded Confirmed Type
ezetimibe 10 mg tablet 10 mg PO DAILY High cholesterol 05/11/20 12/14/23 History
vilazodone 40 mg tablet (Viibryd) 40 mg PO DAILY Depression 05/11/20 12/14/23 History
atorvastatin 40 mg tablet 40 mg PO DAILY High cholesterol 05/18/22 12/14/23 History
furosemide 80 mg tablet 80 mg PO DAILY Fluid 05/18/22 12/14/23 History
retention/Swelling
mv,[id number]-[id number] 2 cap PO DAILY Supplement 05/18/22 12/14/23 History
oil 400 mcg-500 unit capsule
(ProRenal QD)
coenzyme Q10 100 mg capsule 100 mg PO QPM Supplement 08/04/22 12/14/23 History
(CoQ-10)
ipratropium bromide 21 mcg (0.03 2 spray intranasal BID Allergies 08/04/22 12/14/23 History
%) nasal spray
sevelamer carbonate 800 mg tablet 2,400 mg PO MEALS Kidney Disease 08/04/22 12/14/23 History
insulin aspart U-100 100 unit/mL 0 sliding scale dose SC MEALS 08/17/22 12/14/23 History
subcutaneous solution (Novolog Diabetes
U-100 Insulin aspart)
amiodarone 200 mg tablet 100 mg PO DAILY Arrhythmia 02/27/23 12/14/23 History
trazodone 50 mg tablet 50 mg PO HS PRN Sleep 04/06/23 12/14/23 History
cholecalciferol (vitamin D3) 125 125 mcg PO QPM Supplement 06/15/23 12/14/23 History
mcg (5,000 unit) tablet
clonidine HCl 0.3 mg tablet 0.3 mg PO BID Blood Pressure 06/15/23 12/14/23 History
hydralazine 50 mg tablet 50 mg PO DAILY Blood Pressure 06/15/23 12/14/23 History
latanoprost 0.005 % eye drops 1 drp BOTH EYES HS Eye Condition 06/15/23 12/14/23 History
polyethylene glycol 3350 17 gram 17 g PO DAILY PRN constipation 06/15/23 12/14/23 History
oral powder packet (Miralax)
acetaminophen 325 mg tablet 650 mg PO Q4HPRN PRN mild pain #0 06/17/23 12/14/23 Rx
tabs
aspirin 81 mg tablet,delayed 81 mg PO DAILY Blood Clot 09/25/23 12/14/23 History
release Prevention/Tx
insulin glargine 100 unit/mL (3 16 unit SC HS Diabetes 09/25/23 12/14/23 History
mL) subcutaneous pen (Lantus
Solostar U-100 Insulin)
oxycodone 5 mg tablet 5 mg PO Q6HPRN PRN 09/25/23 12/14/23 History
breakthrough/severe pain
sevelamer carbonate 800 mg tablet 2,400 mg PO TID PRN snacks 09/25/23 12/14/23 History
Physical Exam
Vital Signs
Vital Signs
Temp Pulse Resp BP Pulse Ox
98.9 F 67 17 130/56 95
12/20/23 07:49 12/20/23 07:49 12/20/23 07:49 12/20/23 07:49 12/20/23 07:49
Lab / Testing Results
Laboratory Results
12/20/23 07:38
12/19/23 07:37
Physical Exam
General: Well Developed, Well Nourished and No Apparent Distress
Respiratory: Clear and Non Labored Respirations
GI: Soft and Non Tender
Genito-urinary: No Costovertebral Tend and Other (well healing groin and perineal incisions, some ecchymosis without tenderness, fluctuance, abscess, or induration)
Skin: Warm and Dry
Psych: Calm
Assessment / Plan
-
78M with hx of prostate cancer, bladder cancer, urinary incontinence
Hx of prostatectomy and artificial urinary sphincter
More recent hx of bladder cancer managed with serial TURBT with recurrences at [facility]
s/p recent TURBT and explant of artificial sphincter due to urethral erosion
Urology consulted for hematuria in che
- CTAP ordered given recent pelvic/perineal surgery and leukocytosis, which showed no fluid collections or concern for infection, upper tract obstruction, or stone
- Well healing perineal and groin incisions from recent device explant - no concern for infection here
- Gross hematuria due to recent bladder tumor resection
- Hematuria is mild - given his very low baseline urine output, the bleeding in catheter bag appears worse. Urine easily flushes to clear without clots, no clots on CT. Stable HGB.
- No intervention recommended
- Follow up outpatient with Dr. Burnham for catheter removal as scheduled
--- NOTE | 2023-12-20 12:48 | W.PN.ID1 ---
Date of Service
Date of Service: December 20, 2023
Today's Communication
Observe off abx.
Assessment / Plan
Leukocytosis
- not clear if stress reaction or infectious process
Encephalopathy; likely toxic � metabolic
CAD
Prostate/bladder cancer
HTN
Dyslipidemia
DM
ESRD � HD
Recommendations:
Are present, no immediately identifiable source of leukocytosis seen, and WBC noted to be improving.
Would continue off antibiotics for the present time.
Monitor white count closely.
Monitor temperature curve.
For PD cath removal
����������������������������������������������������������
Chief Complaint
-: Leukocytosis
Subjective / Review of Systems
Review of Systems: No Fever
Vital Signs / Physical Exam
Vital Signs
Vital Signs
Temp Pulse Resp BP Pulse Ox
98.9 F 67 17 130/56 95
12/20/23 07:49 12/20/23 07:49 12/20/23 07:49 12/20/23 07:49 12/20/23 07:49
Physical Exam
Constitutional: Comfortable, Chronically Ill and Non-toxic
Eyes: Sclera Anicteric
Cardiovascular: S1/S2; Negative S3/S4
Pulmonary: Clear; Negative Wheezes, Rales or Rhonchi
Skin: Negative Rash or Jaundice
Psychological: Calm
Objective Data
Lab Data
Lab Results
12/20/23 07:38
12/19/23 07:37
Estimated Creat Clear 10 ml/min 12/19/23 07:37
Total Bilirubin 0.4 mg/dl (0.2-1.3) 12/16/23 06:10
AST 53 U/L (17-59) 12/16/23 06:10
ALT 51 U/L (0-50) H 12/16/23 06:10
Alkaline Phosphatase 76 U/L (38-126) 12/16/23 06:10
Most recent labs reviewed.
Micro Results:
12/15/23 15:00 Blood Culture - Preliminary
Blood/Venous No Growth in 4 days- Final report to follow
12/15/23 15:00 Blood Culture - Preliminary
Blood/Venous No Growth in 4 days- Final report to follow
Imaging:
12/18/2023 CT head without contrast: No acute intracranial abnormality noted. Mild to moderate age-related parenchymal atrophy. Chronic lacunar infarcts in the caudate heads. Small chronic infarct inferior to the right frontal horn. No intra or
extra-axial mass, hemorrhage or fluid collections noted. Please see full dictation for additional detail. Film personally viewed.
Care Review
Plan reviewed with: Physician (Nephrology)
--- NOTE | 2023-12-20 14:34 | CM ---
Received call from patient's daughter who was in agreement with SNF and stated that they, she and patient's son, spoke with patient and he is now in agreement with SNF. He was agreeable to referrals being placed to [facility], and
[facility].
Plan: Case management will continue to follow and assist with discharge planning. Will fax referrals and await determinations from selected facilities.
[2023-12-20] MEDS: NOVOLOG FLEXPEN-LOW RESISTANCE 2 UNITS SC ×2 (15:29→17:59)
[2023-12-20 15:45] VITALS: BP 141/64
[2023-12-20 16:14] VITALS: BP 141/64; PULSE 62
[2023-12-20] MEDS: ROXICODONE 5 MG PO ×2 (16:33→22:38)
[2023-12-20] MEDS: VITAMIN D3 (cholecalciferol) 125 MCG PO (17:58)
[2023-12-20 18:01] LABS: Glucose - Point of Care 235 mg/dl (70-99)
[2023-12-20 22:29] LABS: Glucose - Point of Care 194 mg/dl (70-99)
[2023-12-20] MEDS: XALATAN OPHTHALMIC SOLUTION 1 DROP BOTH EYES (22:39)
[2023-12-20] MEDS: LANTUS 0.0400000000000000008 UNITS SC (22:39)
--- NOTE | 2023-12-20 23:00 | PTCARENOTE ---
In anticipation of the OR tomorrow, pt washed with bath wipes, gown and linens changed and CHG wipes provided.
[2023-12-20 23:09] VITALS: BP 141/57
[2023-12-21] VITALS (12 sets, daily range): BP systolic 95–149; BP diastolic 40–63; BMI 30.3
--- NOTE | 2023-12-21 03:03 | PTCARENOTE ---
Pt complained of unrelieved mild pain in lower back, pt repositioned in bed. PHYSICIAN GYNECOLOGIST made aware, new order provided, see MAR. Will continue to monitor.
[2023-12-21] MEDS: TYLENOL 650 MG PO (03:04)
[2023-12-21 05:55] LABS: Glucose - Point of Care 158 mg/dl (70-99)
[2023-12-21] MEDS: NOVOLOG FLEXPEN-LOW RESISTANCE 1 UNITS SC ×2 (05:55→17:51)
--- NOTE | 2023-12-21 08:49 | W.PN.SURGUPD ---
Surgical Update
Surgical Update
Patient is a 78 yo M with a PMH of HTN, HLD, CHF, CAD s/p CABG, A-fib, prostate cancer s/p prostatectomy and bladder cancer s/p TURBT, and ESRD s/p AVF and PD catheter. Mr. Dorsey is well-known to me as an outpatient for his PD catheter access.
He most recently had a PD catheter placed back in 08/2023 and has been receiving PD. He is currently been admitted to the hospital for workup of infectious disease. Concern for possible infection of his catheter, however, more notably he is unable
to manage PD catheterization at home by himself and is switching to permanent HD. He denies any abdominal pain. Hemodynamically stable over the past 24 hours. He has had clearance for his operation by both Nephrology and ID.
Gen: NAD
Cardiac: irregular
Resp: comfortable on RA
Abd: soft, NT/ND, PD catheter in place without signs of infection
Plan for removal of PD catheter. The procedure itself, as well as the risks, benefits, and alternatives was discussed with the patient. Specifically, we discussed the risks of bleeding, infection, injury to surrounding structures, and anesthetic
complications. All questions answered. Consent signed.
-- Removal of PD catheter
-- NPO, IVF
-- Abx: Ancef
-- Admit to floors post-op
--- NOTE | 2023-12-21 08:56 | W.SUR.PREOP ---
Pre-Operative Surgical Note
-
I have examined this patient prior to the performance of the scheduled procedure.
The patient's condition is unchanged from the time of the current History and
Physical and the patient is able to undergo the scheduled procedure.
--- NOTE | 2023-12-21 09:47 | W.IMMPOSTOP ---
Addendum entered and electronically signed by Marshall Mills MD 12/21/23 09:55:
[facility]#[id number]
Original Note:
Surgical Immed Post Op Note
-
Primary Surgeon: Gene
Assisting Surgeon: PRISCILA Geller
Pre-op Diagnosis: PD catheter
Post-op Diagnosis: PD catheter
Procedure Performed: Removal of PD catheter
Anesthesia Type: MAC, local
Specimen / Cultures:
1. PD catheter tip for sulture
Estimated Blood Loss: 7 cc
Complications: None
Operative Findings:
1. 2 cuff catheter removed intact, tip sent for culture
[2023-12-21 10:29] LABS: Glucose - Point of Care 138 mg/dl (70-99)
[2023-12-21] MEDS: ZETIA 10 MG PO (11:02)
[2023-12-21] MEDS: LASIX 80 MG PO (11:02)
[2023-12-21] MEDS: CATAPRES 0.299999999999999989 MG PO ×2 (11:02→19:18)
[2023-12-21] MEDS: NEPHROCAP 1 CAPSULE PO (11:03)
[2023-12-21] MEDS: RENVELA PO ×2 (11:03→17:55)
[2023-12-21] MEDS: ASPIR LOW (ENTERIC COATED) 81 MG PO (11:04)
[2023-12-21] MEDS: PACERONE 100 MG PO (11:04)
[2023-12-21] MEDS: APRESOLINE 50 MG PO (11:04)
[2023-12-21] MEDS: LIPITOR 40 MG PO (11:04)
[2023-12-21] MEDS: NON-FORMULARY ITEM 40 MG PO (11:06)
[2023-12-21] MEDS: ANTIFUNGAL CLEAR 1 APPLIC TOPICAL ×2 (11:09→19:19)
--- NOTE | 2023-12-21 11:44 | W.PN.HOSP.TC ---
Addendum entered and electronically signed by Dilan Ruiz MD 12/21/23 12:58:
Patient complaining of leg pain and worsening lower extremity wound. Discussed with wound team and nephrology. ? Calciphylaxis. Will ask vascular for input
Original Note:
Today's Communication/Plan
-
HD today
Follow-up on tip culture data
Await labs
Monitor mentation
Eventual SNF
Assessment / Plan
Assessment / Plan
Physical exam:
General: Acute and chronically ill
HEENT: Normocephalic, Atraumatic and Moist Mucous Membranes
Respiratory: Decreased breath sounds and few crackles in bases; Negative Wheezes or Rhonchi
Cardiac: Regular Rhythm and S1/S2
GI: Soft, Nontender and Nondistended, PD catheter removed
Musculoskeletal: Bilateral edema. No Clubbing, No Cyanosis
Neuro: Generalized weakness present.
�Sanches with hematuria
Psych: Calm
A/P:
# Toxic metabolic encephalopathy (weakness/confusion multifactorial secondary to end-stage renal disease/hypoglycemia in the setting of diarrhea/decreased oral intake/insulin use/diabetes mellitus type 2,/recent hospitalization):
-Monitor mental status
-Off antibiotics. Follow up blood cultures but no growth so far.
-Hemodialysis per renal
-Resumed Lantus but will decrase dose further to 4u. POC not accurate ?due to PVD.
-Insulin sliding scale, Accu-Cheks. Adjust insulin as needed. POC is stabilized.
-he also was treated for possible pneumonia; PD ineffective-transition to HD; was recommended rehab but refused.
-PT OT recommends-patient agreeable for rehab.
-CT head with chronic changes . Chronic infarcts noted.
-He is interested in rehab. Mentation starting to stabilize however does wax and wane at times.
#Leukocytosis:
-In light of patient vascular access and leukocytosis, s/p ordered blood cultures on 12/14
-WBC 15.7 to 12.3.
-Follow-up blood cultures negative so far
-Off antibiotics.
-Continue to monitor trend
-Peritoneal catheter removed and tip sent for culture
-CT pelvis negative for abscess
-ID on board.
# Hematuria in the setting of recent bladder tumor resection and exchange sphincter;
#Prostate/bladder cancer status post recent prostatectomy and bladder scraping with chronic Sanches catheter and artificial urinary sphincter status post explant
-Mild hematuria expected. Patient with scant urinary output. Continue to trend hemoglobin. Transfuse as needed.
-Urology has been consulted and no acute intervention.
# Mild subacute blood loss anemia due to hematuria in the setting of recent surgery
-Trend CBC transfuse as needed
# Diarrhea felt to be secondary to antibiotic use, rule out C. difficile. No BM reported here-will monitor
-No diarrhea
-BRAT diet
# Inability to manage peritoneal dialysis
# History of ESRD on peritoneal dialysis
-Nephrology to perform hemodialysis through AV fistula--> consulted nephrology on 12/14 and started on HD.
-PD catheter removed on 12/20.
-PT/OT for rehab
-Resumed sevelamer
#Anemia
-stable
-Hemoglobin 8.4 today
-Continue to monitor
#IDDM with hypogylcemia
-lantus 4u and iss. POC 138.
# Transaminitis
-Improving
-F/U outpatient
# Recent aspiration pneumonia
-Treated at [facility]
Secondary hyperparathyroidism
CAD status post CABG
Recent demand ischemia/NSTEMI
-Continue aspirin
Paroxysmal atrial fibrillation
-Continue amiodarone and asa
Combined systolic/diastolic CHF
-Continue Lasix
Essential hypertension
-Continue clonidine, hydralazine
Hypercholesterolemia
-Continue statin, Zetia
Chronic constipation
-Continue MiraLAX
Chronic anemia
Diverticulosis
History of fatty liver
History of skin cancer
Depression
-Continue vilazodone
Cataract surgery
DNR/DNI
DVT prophylaxis-SCDs in the setting of hematuria
PT/OT- SNF.
Anticipated Discharge: > 48 hours
Subjective/Interval History
-
Date of Service: December 21, 2023
Patient seen post op. Denies abdominal pain.
Objective Data
-
Labs:
Laboratory Results
12/21/23
06:00
WBC Pending
Hgb Pending
Hct Pending
Plt Count Pending
Sodium Pending
Potassium Pending
Chloride Pending
Carbon Dioxide Pending
BUN Pending
Creatinine Pending
Glucose Pending
Calcium Pending
Vital Signs:
Vital Signs
Temp Pulse Resp BP Pulse Ox
97.8 F 55 17 134/59 97
12/21/23 11:42 12/21/23 11:42 12/21/23 11:42 12/21/23 11:42 12/21/23 11:42
I&O
12/20/23 12/21/23 12/22/23
06:59 06:59 06:59
Intake Total 120 / 120
Output Total 75 / 75 50 / 50
Balance -75 / -75 70 / 70
Data Reviewed
-
Total Time Spent with Patient (in minutes): 55
[2023-12-21 11:59] LABS: Glucose - Point of Care 127 mg/dl (70-99)
[2023-12-21] MEDS: RENVELA 2400 MG PO ×2 (12:28→17:49)
[2023-12-21] MEDS: NOVOLOG FLEXPEN-LOW RESISTANCE SC (12:28)
--- NOTE | 2023-12-21 12:34 | WOUNDNOTE ---
L CALF (LATERAL POSTERIOR)
--- NOTE | 2023-12-21 12:35 | WOUNDNOTE ---
L CALF (POSTERIOR LATERAL)
--- NOTE | 2023-12-21 12:35 | WOUNDNOTE ---
L CALF/ANKLE (MEDIAL)
--- NOTE | 2023-12-21 12:36 | WOUNDNOTE ---
R CALF (MEDIAL POSTERIOR)
--- NOTE | 2023-12-21 12:37 | WOUNDNOTE ---
R CALF/ANKLE (MEDIAL)
--- NOTE | 2023-12-21 12:37 | WOUNDNOTE ---
ROBERTO CARLOS (R LATERAL/L MEDIAL)
[2023-12-21] MEDS: ProAmatine 10 MG PO (12:40)
[2023-12-21] MEDS: RETACRIT 8000 UNITS IV (12:50)
--- NOTE | 2023-12-21 12:57 | WOUNDNOTE ---
WO RN note: Patient's LE ecchymotic areas have evolved to more necrotic tissue. Patient stated he has pain Le's. Penis tip with small purple/black crusted area (hx of recent penile surgery). Patient reports diarrhea has improved. Patient is on an
air overlay mattress. Patient currently on HD. HD nurse with patient. LE dressings changed. Heels off bed with air chair cushion. Updated Dr. Ruiz and Dr. Gamino via tiger text re: LE's with more necrotic tissue, question if Calciphylaxis a
possibility at this point, defer to physician if vascular consult appropriate, suggest Vaseline bid for penis tip (will update nursing). Dr. Gamino responded Le's look worse and recommends vascular consult. Dr. Ruiz responded he will consult
Vascular.
[2023-12-21 12:58] LABS: % Basophils 0.2 % (0-2); % Eosinophils 0.5 % (0-6); % Immature Granulocytes 1.2 % (0-0.5); % Lymphocytes 3.7 % (20.5-51.1); % Neutrophils 89.4 % (42.2-75.2); Absolute Eosinophils 0.1 10^3/uL (0-0.7); Absolute Immature Granulocytes 0.2 10^3/uL (0-0.05); Absolute Lymphocytes 0.5 10^3/uL (1.2-3.4); Absolute Monocytes 0.7 10^3/uL (0.1-0.6); Absolute Neutrophils 11.7 10^3/uL (1.4-6.5); Hematocrit 25.3 % (39.0-52.0); Hemoglobin 8.4 g/dL (13.0-18.0); Mean Corp Hgb Conc. 33.2 g/dL (33.0-37.0); Mean Corpuscular Hgb 33.6 pg (27.0-31.0); Mean Corpuscular Volume 101.2 fL (80.0-94.0); Mean Platelet Volume 11.6 fL (7.4-10.4); Nucleated Red Blood Cells % 0 % (-); Platelet Count 181 10^3/uL (130-400); Red Cell Dist. Width 18.6 % (11.5-14.5); White Blood Cell Count 13.1 10^3/uL (4.8-10.8)
[2023-12-21 13:23] LABS: Blood Urea Nitrogen 68 mg/dl (9-20); Calcium 7.7 mg/dl (8.4-10.2); Carbon Dioxide 24 mmol/L (22-30); Chloride 94 mmol/L (98-107); Estimated Creatinine Clearance 10 ml/min; Glucose 215 mg/dl (70-99); Magnesium 2.4 mg/dl (1.6-2.3); Phosphorus 7.4 mg/dl (2.5-4.5); Potassium 5.4 mmol/L (3.5-5.1); Sodium 127 mmol/L (135-145)
--- NOTE | 2023-12-21 14:46 | CON.VAS ---
Addendum entered and electronically signed by Kendall Sanches III, MD 12/21/23 16:37:
This patient was seen and examined with VANDANA Lopes. I agree with the history and physical exam as well as the assessment and plan. I have the following additions:
Known to me after creation of left upper extremity brachiocephalic fistula over the summer 2022
Chronically ill with multiple advanced medical comorbidities
Consulted for bilateral lower extremity wounds
These are superficial and ecchymotic over the bilateral lower extremities
Areas of necrosis
He reports them developing spontaneously after areas of local trauma (bumping his legs)
Nonpalpable pedal pulses bilaterally
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
Recommend biopsy
Will obtain baseline lower extremity arterial studies
Continue local wound care
Will follow along
Call with questions or concerns
Signed:
Kendall Sanches III, MD
[facility]
[phone] ([id number])
Original Note:
Consultation
Consultation Request
Date/Time Consultation Performed: 12/21/23 1500
Requesting Provider: Dilan Ruiz MD
Performing Provider: Jessica Bedolla NP-C for Kendall Sanches III, MD
Reason for Consultation: Bilateral lower extremity wounds
Medical History
-
Chief Complaint: Weakness and confusion
History of Present Illness:
This is a 78-year-old male with significant past medical history of ESRD (previously used peritoneal but now on HD via left upper extremity AVF created by our vascular surgery team), secondary hyperparathyroidism, CAD status post CABG, paroxysmal
atrial fibrillation on Eliquis, CHF, hypertension, prostate/bladder cancer status post prostatectomy and bladder scraping, hypertension, hypercholesteremia, diabetes, chronic constipation, chronic anemia, hyperlipidemia, type 2 diabetes,
diverticulosis, fatty liver, skin cancer, and depression who presented to [place] ED on 12/14/23 for weakness/malaise and was found to be hypoglycemic at that time. Chart review notes that patient was recently hospitalized at [facility] for
altered mental status and agitation in the setting of missed dialysis. During that admission he was also treated for aspiration pneumonia but ultimately left AMA at the end of November prior to seeking evaluation here at [facility]. He
currently offers no complaints and reports improvement in weakness and confusion since admission. Vascular surgery has been consulted for bilateral lower extremity wounds. Patient cannot recall exactly when was initiated or exact origin. He
states 'I was doing more than I should and I just bumped my leg.' He denies rest pain or claudication.
Past Medical History
Past Medical History: CAD, Cancer (Prostate/bladder), HTN, Hypercholesterolemia, NIDDM, [place], Renal Failure (On HD), Psychiatric (Depression) and Other (Diverticulosis, fatty liver, anemia)
Past Surgical History: Cardiac (CABG) and Other
Social History
Tobacco: Former Smoker
Allergies / Home Medications
Allergy/AdvReac Type Severity Reaction Status Date / Time
amlodipine Allergy edema Verified 10/12/23 05:04
Medication Instructions Recorded Confirmed Type
ezetimibe 10 mg tablet 10 mg PO DAILY High cholesterol 05/11/20 12/14/23 History
vilazodone 40 mg tablet (Viibryd) 40 mg PO DAILY Depression 05/11/20 12/14/23 History
atorvastatin 40 mg tablet 40 mg PO DAILY High cholesterol 05/18/22 12/14/23 History
furosemide 80 mg tablet 80 mg PO DAILY Fluid 05/18/22 12/14/23 History
retention/Swelling
mv,[id number] 2 cap PO DAILY Supplement 05/18/22 12/14/23 History
oil 400 mcg-500 unit capsule
(ProRenal QD)
coenzyme Q10 100 mg capsule 100 mg PO QPM Supplement 08/04/22 12/14/23 History
(CoQ-10)
ipratropium bromide 21 mcg (0.03 2 spray intranasal BID Allergies 08/04/22 12/14/23 History
%) nasal spray
sevelamer carbonate 800 mg tablet 2,400 mg PO MEALS Kidney Disease 08/04/22 12/14/23 History
insulin aspart U-100 100 unit/mL 0 sliding scale dose SC MEALS 08/17/22 12/14/23 History
subcutaneous solution (Novolog Diabetes
U-100 Insulin aspart)
amiodarone 200 mg tablet 100 mg PO DAILY Arrhythmia 02/27/23 12/14/23 History
trazodone 50 mg tablet 50 mg PO HS PRN Sleep 04/06/23 12/14/23 History
cholecalciferol (vitamin D3) 125 125 mcg PO QPM Supplement 06/15/23 12/14/23 History
mcg (5,000 unit) tablet
clonidine HCl 0.3 mg tablet 0.3 mg PO BID Blood Pressure 06/15/23 12/14/23 History
hydralazine 50 mg tablet 50 mg PO DAILY Blood Pressure 06/15/23 12/14/23 History
latanoprost 0.005 % eye drops 1 drp BOTH EYES HS Eye Condition 06/15/23 12/14/23 History
polyethylene glycol 3350 17 gram 17 g PO DAILY PRN constipation 06/15/23 12/14/23 History
oral powder packet (Miralax)
acetaminophen 325 mg tablet 650 mg PO Q4HPRN PRN mild pain #0 06/17/23 12/14/23 Rx
tabs
aspirin 81 mg tablet,delayed 81 mg PO DAILY Blood Clot 09/25/23 12/14/23 History
release Prevention/Tx
insulin glargine 100 unit/mL (3 16 unit SC HS Diabetes 09/25/23 12/14/23 History
mL) subcutaneous pen (Lantus
Solostar U-100 Insulin)
oxycodone 5 mg tablet 5 mg PO Q6HPRN PRN 09/25/23 12/14/23 History
breakthrough/severe pain
sevelamer carbonate 800 mg tablet 2,400 mg PO TID PRN snacks 09/25/23 12/14/23 History
Review of Systems
-
History Source: Patient
Constitutional: Reports Other (Malaise/weakness)
EENT: Reports No Symptoms
Respiratory: Reports Other (Chronic shortness of breath)
Cardiac: Reports No Symptoms
Abdomen/GI: Reports Diarrhea
: Reports No Symptoms
Musculoskeletal: Reports No Symptoms
Skin: Reports Other (Bilateral lower extremity wounds)
Neurological: Reports Weakness
Physical Exam
Vital Signs
Temp Pulse Resp BP Pulse Ox
97.9 F 55 17 107/40 99
12/21/23 12:59 12/21/23 13:11 12/21/23 12:00 12/21/23 13:11 12/21/23 12:59
Lab Results
12/21/23 12:43
12/21/23 12:43
Physical Exam
General: No Apparent Distress and Comfortable
HEENT: Normocephalic, Anicteric and Atraumatic
Respiratory: Non Labored Respirations
Cardiac: Negative JVD
GI: Soft, Non Tender and Non Distended
Musculoskeletal: Edema (Bilateral lower extremity trace edema) and Other (Bilateral DP/PT nonpalpable)
Skin: Warm
Neuro: AO x 3
Assessment / Plan
-
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
Plan:
Will obtain arterial duplex GUSTABO/TBI for initial evaluation of PAD
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
I performed this shared service with the attending. I evaluated the patient [id number] and have entered clinical documentation as shown in the encounter note. I performed the following component(s): history and physical exam. Note that medical
decision making is not final until attested by vascular attending
--- NOTE | 2023-12-21 15:13 | W.PN.NEPH.HD ---
Assessment
-
bilateral leg wounds, c/f calciphylaxis. vascular consulted
considering biopsy
otherwise HD going well
Progress Note - Hemodialysis
-
Date of Service: December 21, 2023
Duration: 30 minutes and 3 hours
Potassium Bath: 2
Calcium Bath: 2.5
Opti-Dialyzer: 160
Ultrafiltration: Other
Blood Flow: 400
Dialysate Flow: 600
EPO: 8K
--- NOTE | 2023-12-21 16:22 | PTCARENOTE ---
1555 Assumed care of pt. Pt on dialysis. No distress noted.
[2023-12-21 16:37] LABS: Glucose - Point of Care 161 mg/dl (70-99)
[2023-12-21] MEDS: VITAMIN D3 (cholecalciferol) 125 MCG PO (17:49)
[2023-12-21] MEDS: ROXICODONE 5 MG PO (19:18)
[2023-12-21 21:17] LABS: Glucose - Point of Care 301 mg/dl (70-99)
[2023-12-21] MEDS: XALATAN OPHTHALMIC SOLUTION 1 DROP BOTH EYES (21:22)
[2023-12-21] MEDS: LANTUS 0.0400000000000000008 UNITS SC (21:22)
[2023-12-22 04:55] VITALS: BP 119/90
[2023-12-22 05:32] VITALS: BMI 30.8
[2023-12-22 06:00] VITALS: BMI 30.8
[2023-12-22 07:44] VITALS: BP 114/50
[2023-12-22 08:09] LABS: Glucose - Point of Care 184 mg/dl (70-99)
[2023-12-22 08:12] LABS: % Basophils 0.2 % (0-2); % Immature Granulocytes 0.9 % (0-0.5); % Monocytes 14.8 % (1.7-9.3); % Neutrophils 76.1 % (42.2-75.2); Absolute Immature Granulocytes 0.1 10^3/uL (0-0.05); Absolute Lymphocytes 0.9 10^3/uL (1.2-3.4); Absolute Monocytes 1.7 10^3/uL (0.1-0.6); Absolute Neutrophils 8.8 10^3/uL (1.4-6.5); Hematocrit 27.6 % (39.0-52.0); Hemoglobin 8.9 g/dL (13.0-18.0); Mean Corp Hgb Conc. 32.2 g/dL (33.0-37.0); Mean Corpuscular Hgb 33.5 pg (27.0-31.0); Mean Corpuscular Volume 103.8 fL (80.0-94.0); Mean Platelet Volume 11.7 fL (7.4-10.4); Nucleated Red Blood Cells % 0 % (-); Platelet Count 187 10^3/uL (130-400); Red Blood Cell Count 2.66 10^6/uL (4.70-6.10); Red Cell Dist. Width 18.2 % (11.5-14.5); White Blood Cell Count 11.5 10^3/uL (4.8-10.8)
[2023-12-22] MEDS: NON-FORMULARY ITEM 40 MG PO (08:22)
[2023-12-22] MEDS: LIPITOR 40 MG PO (08:22)
[2023-12-22] MEDS: PACERONE 100 MG PO (08:23)
[2023-12-22] MEDS: RENVELA 2400 MG PO ×3 (08:24→16:51)
[2023-12-22] MEDS: CATAPRES 0.299999999999999989 MG PO ×2 (08:24→19:45)
[2023-12-22] MEDS: ZETIA 10 MG PO (08:26)
[2023-12-22] MEDS: LASIX 80 MG PO (08:26)
[2023-12-22] MEDS: NOVOLOG FLEXPEN-LOW RESISTANCE 1 UNITS SC (08:26)
[2023-12-22] MEDS: APRESOLINE 50 MG PO (08:26)
[2023-12-22] MEDS: ASPIR LOW (ENTERIC COATED) 81 MG PO (08:26)
[2023-12-22] MEDS: NEPHROCAP 1 CAPSULE PO (08:26)
[2023-12-22] MEDS: ANTIFUNGAL CLEAR 1 APPLIC TOPICAL ×2 (08:27→22:30)
--- NOTE | 2023-12-22 10:18 | W.PN.HOSP.TC ---
Today's Communication/Plan
-
See note
Assessment / Plan
Assessment / Plan
Physical exam:
General: no acute distress and chronically ill
HEENT: Normocephalic, Atraumatic and Moist Mucous Membranes
Respiratory: Decreased breath sounds and few crackles in bases; Negative Wheezes or Rhonchi
Cardiac: Regular Rhythm and S1/S2
GI: Soft, Nontender and Nondistended, PD catheter removed
Musculoskeletal: Bilateral edema. No Clubbing, No Cyanosis
Neuro: Generalized weakness present.
Skin: necrotic ulcerated wounds seen on lower extremities
Psych: Calm
A/P:
# Necrotic black skin ulcers in lower extremities
high suspicious for calciphylaxis
Recommend nephrology to treat as such until we get skin biopsy, likely surgery to do biopsy next week. No dermatology professional healthcare representative over the weekend but that should not impact treatment as biopsy will take time to result anyway.
c/w HD.
Pain control, adjusted dose of oxycodone.
Will need OP dermatology follow up
# Toxic metabolic encephalopathy (weakness/confusion multifactorial secondary to end-stage renal disease/hypoglycemia in the setting of diarrhea/decreased oral intake/insulin use/diabetes mellitus type 2,/recent hospitalization):
-Monitor mental status. Adjust oxycodone dose according to renal function
-Off antibiotics. Follow up blood cultures but no growth so far.
-Hemodialysis
-Resumed Lantus but will dose further to 4u. POC not accurate ?due to PVD.
-Insulin sliding scale, Accu-Cheks. Adjust insulin as needed. POC is stabilized.
-he also was treated for possible pneumonia; PD ineffective-transition to HD; was recommended rehab but refused.
-PT OT recommends-patient agreeable for rehab.
-CT head with chronic changes . Chronic infarcts noted.
-He is interested in rehab. Mentation starting to stabilize however does wax and wane at times.
#Leukocytosis:
-In light of patient vascular access and leukocytosis, s/p ordered blood cultures on 12/14
-WBC 15.7 to 12.3.
-Follow-up blood cultures negative so far
-Off antibiotics.
-Continue to monitor trend
-Peritoneal catheter removed and tip sent for culture
-CT pelvis negative for abscess
-ID on board.
# Hematuria in the setting of recent bladder tumor resection and exchange sphincter;
#Prostate/bladder cancer status post recent prostatectomy and bladder scraping with chronic Sanches catheter and artificial urinary sphincter status post explant
-Mild hematuria expected. Patient with scant urinary output. Continue to trend hemoglobin. Transfuse as needed.
-Urology has been consulted and no acute intervention.
# Mild subacute blood loss anemia due to hematuria in the setting of recent surgery
-Trend CBC transfuse as needed
# Diarrhea felt to be secondary to antibiotic use, rule out C. difficile. No BM reported here-will monitor
-No diarrhea
-BRAT diet
# Inability to manage peritoneal dialysis
# History of ESRD on peritoneal dialysis
-Nephrology to perform hemodialysis through AV fistula--> consulted nephrology on 12/14 and started on HD.
-PD catheter removed on 12/20.
-PT/OT for rehab
-Resumed sevelamer
#Anemia
-stable
-Hemoglobin 8.4 today
-Continue to monitor
#IDDM with hypogylcemia
-lantus 4u and iss. POC 138.
# Transaminitis
-Improving
-F/U outpatient
# Recent aspiration pneumonia
-Treated at [facility]
Secondary hyperparathyroidism
CAD status post CABG
Recent demand ischemia/NSTEMI
-Continue aspirin
Paroxysmal atrial fibrillation
-Continue amiodarone and asa
Combined systolic/diastolic CHF
-Continue HD
Lasix 80 mg QD, might need to reduce or stop if hypotension
Essential hypertension
-Continue clonidine, hydralazine
Hypercholesterolemia
-Continue statin, Zetia
Chronic constipation
-Continue MiraLAX
Chronic anemia
Diverticulosis
History of fatty liver
History of skin cancer
Depression
-Continue vilazodone
Cataract surgery
DNR/DNI
DVT prophylaxis-SCDs in the setting of hematuria
PT/OT- SNF.
Total time spent to see the patient, examine the patient on the floor, review data and lab results, discuss treatment plan with patient, nursing staff around 55 minutes
Anticipated Discharge: > 48 hours
Subjective/Interval History
-
Date of Service: December 22, 2023
He denies pain in chest or abdomen, denies sob
Nurse, no events over night
Objective Data
-
Labs:
Laboratory Results
12/22/23
07:33
WBC 11.5 H
Hgb 8.9 L
Hct 27.6 L
Plt Count 187
Vital Signs:
Vital Signs
Temp Pulse Resp BP Pulse Ox
98.2 F 47 16 114/50 92
12/22/23 07:44 12/22/23 08:26 12/22/23 07:44 12/22/23 08:26 12/22/23 07:44
I&O
12/21/23 12/22/23 12/23/23
06:59 06:59 07:59
Intake Total 120 / 120 840 / 840
Output Total 50 / 50 25 / 25
Balance 70 / 70 815 / 815
--- NOTE | 2023-12-22 10:39 | W.PN.ID1 ---
Date of Service
Date of Service: December 22, 2023
Today's Communication
Observe off abx.
Assessment / Plan
Leukocytosis
- improved
Encephalopathy; likely TME
CAD
Prostate/bladder cancer
HTN
Dyslipidemia
DM
ESRD � HD
Recommendations:
Are present, no immediately identifiable source of leukocytosis seen, and WBC noted to be improving.
Continue off antibiotics for the present time.
Monitor white count closely.
Monitor temperature curve.
S/P PD cath removal
����������������������������������������������������������
Chief Complaint
-: Leukocytosis
Subjective / Review of Systems
Review of Systems: No Fever
Vital Signs / Physical Exam
Vital Signs
Vital Signs
Temp Pulse Resp BP Pulse Ox
98.2 F 47 16 114/50 92
12/22/23 07:44 12/22/23 08:26 12/22/23 07:44 12/22/23 08:26 12/22/23 07:44
Physical Exam
Constitutional: Comfortable, Chronically Ill and Non-toxic
Pulmonary: Non Labored
Gastrointestinal: Non Distended
Extremities: Negative Edema, Cyanosis or Erythema
Psychological: Calm
Objective Data
Lab Data
Lab Results
12/22/23 07:33
12/21/23 12:43
Estimated Creat Clear 10 ml/min 12/21/23 12:43
Total Bilirubin 0.4 mg/dl (0.2-1.3) 12/16/23 06:10
AST 53 U/L (17-59) 12/16/23 06:10
ALT 51 U/L (0-50) H 12/16/23 06:10
Alkaline Phosphatase 76 U/L (38-126) 12/16/23 06:10
Most recent labs reviewed.
Micro Results:
12/21/23 10:05 Catheter Tip Culture - Pending
Catheter Tip
12/15/23 15:00 Blood Culture - Final
Blood/Venous No Growth - Final Report
12/15/23 15:00 Blood Culture - Final
Blood/Venous No Growth - Final Report
Imaging:
12/18/2023 CT head without contrast: No acute intracranial abnormality noted. Mild to moderate age-related parenchymal atrophy. Chronic lacunar infarcts in the caudate heads. Small chronic infarct inferior to the right frontal horn. No intra or
extra-axial mass, hemorrhage or fluid collections noted. Please see full dictation for additional detail. Film personally viewed.
--- NOTE | 2023-12-22 11:30 | W.PN.NEPH.PH ---
Today's Communication / Plan
-
- wound biopsy on
- HD Sunday
Assessment/Plan
-
Assessment:
History of colonic AVMs (APC February 2023, May 2023, Sep 30)
ESRD on PD (recent conversion from HD)
chronic combined Heart failure with reduced EF46%, DD stage2
CAD status post CABG 2018
Edema
Bladder CA status post TURBT
Prostate CA status post prostatectomy
Diabetes mellitus type 2
Hypertension multidrug
Hypercholesterolemia
Paroxysmal atrial fibrillation on anticoagulation
Secondary hyperparathyroidism
Chronic back pain requiring epidural injections
Left brachiocephalic AV fistula
Depression
Leukocytosis
Falls
Plan:
Dialysis on Sunday, will likley need to restrain access arm given twitching, mental status improving
He has an outpatient Sunday schedule
Will use AV fistula
s/p PD catheter removal
vascular on board for possible calciphylaxis, planned for biopsy on Sunday
Patient is consider different care facilities
-
-
Date of Service: December 22, 2023
CC / HPI / ROS
-
Chief Complaint:
ESRD
History of Present Illness:
ESRD MWF
BP stable
Review of Systems:
no CP/SOB
mental status with some improvement, myoclonic jerks persists
macrohematuria via che
Labs
-
Labs:
WBC 11.5 10^3/uL (4.8-10.8) H 12/22/23 07:33
RBC 2.66 10^6/uL (4.70-6.10) L 12/22/23 07:33
Hgb 8.9 g/dL (13.0-18.0) L 12/22/23 07:33
Hct 27.6 % (39.0-52.0) L 12/22/23 07:33
Plt Count 187 10^3/uL (130-400) 12/22/23 07:33
Sodium 127 mmol/L (135-145) L 12/21/23 12:43
Potassium 5.4 mmol/L (3.5-5.1) H 12/21/23 12:43
Chloride 94 mmol/L (98-107) L 12/21/23 12:43
Carbon Dioxide 24 mmol/L (22-30) 12/21/23 12:43
BUN 68 mg/dl (9-20) H 12/21/23 12:43
Creatinine 5.9 mg/dL (0.7-1.3) H* 12/21/23 12:43
eGFR 9.10 12/21/23 12:43
Glucose 215 mg/dl (70-99) H 12/21/23 12:43
Calcium 7.7 mg/dl (8.4-10.2) L 12/21/23 12:43
Phosphorus 7.4 mg/dl (2.5-4.5) H 12/21/23 12:43
Albumin 2.8 g/dl (3.5-5.0) L 12/16/23 06:10
Physical Exam
-
Vital Signs:
Vital Signs
Temp Pulse Resp BP Pulse Ox
98.2 F 47 16 114/50 92
12/22/23 07:44 12/22/23 08:26 12/22/23 07:44 12/22/23 08:26 12/22/23 07:44
Cardiovascular:: Regular rate and rhythm
Respiratory:: Bilateral: Coarse
Lung Excursion:: Normal
Abdomen:: Nontender and Soft
Bowel Sounds:: Normal
Extremity Edema:: None: Bilateral:
Che Catheter: No
[2023-12-22 12:07] LABS: Glucose - Point of Care 284 mg/dl (70-99)
[2023-12-22] MEDS: NOVOLOG FLEXPEN-LOW RESISTANCE 3 UNITS SC (12:08)
[2023-12-22] MEDS: ROXICODONE 2.5 MG PO ×2 (14:36→23:15)
[2023-12-22 15:24] VITALS: BP 119/51
[2023-12-22] MEDS: MIRALAX 17 GRAMS PO (15:34)
[2023-12-22 16:48] LABS: Glucose - Point of Care 217 mg/dl (70-99)
[2023-12-22] MEDS: NOVOLOG FLEXPEN-LOW RESISTANCE 2 UNITS SC (16:52)
[2023-12-22] MEDS: TYLENOL 650 MG PO (19:57)
[2023-12-22 21:17] LABS: Glucose - Point of Care 167 mg/dl (70-99)
[2023-12-22] MEDS: LANTUS 0.0400000000000000008 UNITS SC (21:54)
[2023-12-22] MEDS: XALATAN OPHTHALMIC SOLUTION 1 DROP BOTH EYES (22:00)
[2023-12-22 23:00] VITALS: BP 113/45
[2023-12-22 23:21] VITALS: BMI 30.8
[2023-12-23] MEDS: DESYREL 50 MG PO (00:45)
[2023-12-23] MEDS: TYLENOL 650 MG PO ×3 (00:45→20:10)
[2023-12-23 06:00] VITALS: BMI 30.8
[2023-12-23 07:41] VITALS: BP 119/51
[2023-12-23 07:51] LABS: Glucose - Point of Care 144 mg/dl (70-99)
[2023-12-23] MEDS: PACERONE 100 MG PO (08:25)
[2023-12-23] MEDS: LASIX 80 MG PO (08:26)
[2023-12-23] MEDS: APRESOLINE 50 MG PO (08:26)
[2023-12-23] MEDS: RENVELA 2400 MG PO ×3 (08:26→16:35)
[2023-12-23] MEDS: ASPIR LOW (ENTERIC COATED) 81 MG PO (08:26)
[2023-12-23] MEDS: ZETIA 10 MG PO (08:26)
[2023-12-23] MEDS: CATAPRES 0.299999999999999989 MG PO (08:26)
[2023-12-23] MEDS: LIPITOR 40 MG PO (08:27)
[2023-12-23] MEDS: NON-FORMULARY ITEM 40 MG PO (08:28)
[2023-12-23] MEDS: NOVOLOG FLEXPEN-LOW RESISTANCE SC (08:28)
[2023-12-23] MEDS: ANTIFUNGAL CLEAR 1 APPLIC TOPICAL ×2 (08:28→21:57)
--- NOTE | 2023-12-23 11:15 | W.PN.NEPH.PH ---
Today's Communication / Plan
-
- HD tomorrow
Assessment/Plan
-
Assessment:
History of colonic AVMs (APC February 2023, May 2023, Sep 30)
ESRD on PD (recent conversion from HD)
chronic combined Heart failure with reduced EF46%, DD stage2
CAD status post CABG 2018
Edema
Bladder CA status post TURBT
Prostate CA status post prostatectomy
Diabetes mellitus type 2
Hypertension multidrug
Hypercholesterolemia
Paroxysmal atrial fibrillation on anticoagulation
Secondary hyperparathyroidism
Chronic back pain requiring epidural injections
Left brachiocephalic AV fistula
Depression
Leukocytosis
Falls
Plan:
Dialysis on Sunday, will kirt need to restrain access arm given twitching, mental status improving
He has an outpatient Sunday schedule
Will use AV fistula
s/p PD catheter removal
vascular on board for possible calciphylaxis, planned for biopsy on Sunday
Patient is consider different care facilities
-
-
Date of Service: December 23, 2023
CC / HPI / ROS
-
Chief Complaint:
ESRD
History of Present Illness:
ESRD MWF
BP stable
Review of Systems:
no CP/SOB
mental status with some improvement, myoclonic jerks persists
macrohematuria via che
Labs
-
Labs:
WBC 11.5 10^3/uL (4.8-10.8) H 12/22/23 07:33
RBC 2.66 10^6/uL (4.70-6.10) L 12/22/23 07:33
Hgb 8.9 g/dL (13.0-18.0) L 12/22/23 07:33
Hct 27.6 % (39.0-52.0) L 12/22/23 07:33
Plt Count 187 10^3/uL (130-400) 12/22/23 07:33
Sodium 127 mmol/L (135-145) L 12/21/23 12:43
Potassium 5.4 mmol/L (3.5-5.1) H 12/21/23 12:43
Chloride 94 mmol/L (98-107) L 12/21/23 12:43
Carbon Dioxide 24 mmol/L (22-30) 12/21/23 12:43
BUN 68 mg/dl (9-20) H 12/21/23 12:43
Creatinine 5.9 mg/dL (0.7-1.3) H* 12/21/23 12:43
eGFR 9.10 12/21/23 12:43
Glucose 215 mg/dl (70-99) H 12/21/23 12:43
Calcium 7.7 mg/dl (8.4-10.2) L 12/21/23 12:43
Phosphorus 7.4 mg/dl (2.5-4.5) H 12/21/23 12:43
Albumin 2.8 g/dl (3.5-5.0) L 12/16/23 06:10
Physical Exam
-
Vital Signs:
Vital Signs
Temp Pulse Resp BP Pulse Ox
98.2 F 51 16 119/51 94
12/23/23 07:41 12/23/23 08:26 12/23/23 07:41 12/23/23 08:26 12/23/23 07:41
Cardiovascular:: Regular rate and rhythm
Respiratory:: Bilateral: CTA
Lung Excursion:: Normal
Abdomen:: Nontender and Soft
Bowel Sounds:: Normal
Extremity Edema:: None: Bilateral:
Che Catheter: No
[2023-12-23 12:08] LABS: Glucose - Point of Care 223 mg/dl (70-99)
[2023-12-23] MEDS: NOVOLOG FLEXPEN-LOW RESISTANCE 2 UNITS SC ×2 (12:16→16:37)
--- NOTE | 2023-12-23 12:34 | W.PN.URO.CBU ---
Today's Communication / Plan
-
keep Sanches
pt to f/u with Dr Burnham at [facility]
Assessment / Plan
-
expected hematuria s/p TURBT
Diagnosis
-
Date of Service: December 23, 2023
-
Patient Diagnosis:
78M with hx of prostate cancer, bladder cancer, urinary incontinence
Hx of prostatectomy and artificial urinary sphincter
More recent hx of bladder cancer managed with serial TURBT with recurrences at [place]
s/p recent TURBT and explant of artificial sphincter due to urethral erosion
- Gross hematuria due to recent bladder tumor resection
- Hematuria is mild - given his very low baseline urine output
Objective
-
Vital Signs
Temp Pulse Resp BP Pulse Ox
98.2 F 51 16 119/51 94
12/23/23 07:41 12/23/23 08:26 12/23/23 07:41 12/23/23 08:26 12/23/23 07:41
Intake and Output
12/22/23 12/23/23 12/24/23
05:59 06:59 06:59
Intake Total
Output Total
Balance
Intake:
Oral fluids
Output:
Urine, Sanches
Laboratory Results
12/22/23 07:33
12/21/23 12:43
Physical Exam
-
: Sanches draining thinly bloody urine
[2023-12-23 15:37] VITALS: BP 125/50; PULSE 46; O2SAT 91
[2023-12-23 15:41] VITALS: BP 123/56
[2023-12-23] MEDS: DILAUDID 2 MG PO ×2 (16:34→23:04)
[2023-12-23 16:35] LABS: Glucose - Point of Care 225 mg/dl (70-99)
[2023-12-23] MEDS: CATAPRES PO (20:10)
[2023-12-23 20:13] VITALS: BP 136/55
[2023-12-23 21:46] LABS: Glucose - Point of Care 230 mg/dl (70-99)
[2023-12-23] MEDS: LANTUS 0.0400000000000000008 UNITS SC (21:56)
[2023-12-23] MEDS: XALATAN OPHTHALMIC SOLUTION 1 DROP BOTH EYES (21:58)
[2023-12-23] MEDS: MIRALAX 17 GRAMS PO (23:04)
[2023-12-24] MEDS: TYLENOL 650 MG PO (00:39)
[2023-12-24 05:30] VITALS: BMI 30.8
[2023-12-24] MEDS: DILAUDID 2 MG PO (06:30)
[2023-12-24 07:00] VITALS: BP 165/58
[2023-12-24 07:09] LABS: Glucose - Point of Care 167 mg/dl (70-99)
[2023-12-24] MEDS: NOVOLOG FLEXPEN-LOW RESISTANCE 1 UNITS SC (07:59)
[2023-12-24] MEDS: CATAPRES 0.299999999999999989 MG PO ×2 (07:59→20:17)
[2023-12-24] MEDS: RENVELA 2400 MG PO ×3 (08:00→20:16)
[2023-12-24] MEDS: ZETIA 10 MG PO (08:00)
[2023-12-24] MEDS: PACERONE 100 MG PO (08:00)
[2023-12-24] MEDS: LASIX 80 MG PO (08:00)
[2023-12-24] MEDS: APRESOLINE 50 MG PO (08:00)
[2023-12-24] MEDS: LIPITOR 40 MG PO (08:00)
[2023-12-24] MEDS: ASPIR LOW (ENTERIC COATED) 81 MG PO (08:00)
[2023-12-24] MEDS: NON-FORMULARY ITEM 40 MG PO (08:01)
[2023-12-24] MEDS: ANTIFUNGAL CLEAR 1 APPLIC TOPICAL ×2 (08:03→20:17)
--- NOTE | 2023-12-24 08:49 | W.PN.HOSP.TC ---
Today's Communication/Plan
-
Continue hemodialysis. Evaluating for possible calciphylaxis.
Assessment / Plan
Assessment / Plan
Physical exam:
General: no acute distress and chronically ill
HEENT: Normocephalic, Atraumatic and Moist Mucous Membranes
Respiratory: Decreased breath sounds and few crackles in bases; Negative Wheezes or Rhonchi
Cardiac: Regular Rhythm and S1/S2
GI: Soft, Nontender and Nondistended, PD catheter removed
Musculoskeletal: Bilateral edema. No Clubbing, No Cyanosis
Neuro: Generalized weakness present.
Skin: necrotic ulcerated wounds seen on lower extremities
Psych: Calm
A/P:
# Necrotic black skin ulcers in lower extremities
high suspicious for calciphylaxis
Obtain calcium, phosphate, PTH
Consideration with sodium thiosulfate defer to nephro
c/w HD.
Pain control, adjusted dose of oxycodone.
Will need OP dermatology follow up
# Toxic metabolic encephalopathy (weakness/confusion multifactorial secondary to end-stage renal disease/hypoglycemia in the setting of diarrhea/decreased oral intake/insulin use/diabetes mellitus type 2,/recent hospitalization):
-Monitor mental status. Adjust oxycodone dose according to renal function
-Off antibiotics. Follow up blood cultures but no growth so far.
-Hemodialysis
-Resumed Lantus but will dose further to 4u. POC not accurate ?due to PVD.
-Insulin sliding scale, Accu-Cheks. Adjust insulin as needed. POC is stabilized.
-he also was treated for possible pneumonia; PD ineffective-transition to HD; was recommended rehab but refused.
-PT OT recommends-patient agreeable for rehab.
-CT head with chronic changes . Chronic infarcts noted.
-He is interested in rehab. Mentation starting to stabilize however does wax and wane at times.
#Leukocytosis:
-In light of patient vascular access and leukocytosis, s/p ordered blood cultures on 3/2
-WBC 15.7 to 11.5 on 12/21
-Follow-up blood cultures negative so far
-Off antibiotics.
-Continue to monitor trend
-Peritoneal catheter removed and tip sent for culture
-CT pelvis negative for abscess
-ID on board.
# Hematuria in the setting of recent bladder tumor resection and exchange sphincter;
#Prostate/bladder cancer status post recent prostatectomy and bladder scraping with chronic Sanches catheter and artificial urinary sphincter status post explant
-Mild hematuria expected. Patient with scant urinary output. Continue to trend hemoglobin. Transfuse as needed.
-Urology has been consulted and no acute intervention.
# Mild subacute blood loss anemia due to hematuria in the setting of recent surgery
-Trend CBC transfuse as needed
# Diarrhea felt to be secondary to antibiotic use, rule out C. difficile. No BM reported here-will monitor
-No diarrhea
-BRAT diet
# Inability to manage peritoneal dialysis
# History of ESRD on peritoneal dialysis
-Nephrology to perform hemodialysis through AV fistula--> consulted nephrology on 12/14 and started on HD.
-PD catheter removed on 12/20.
-PT/OT for rehab
-Resumed sevelamer
#Anemia
-stable
-Hemoglobin 8.4 today
-Continue to monitor
#IDDM with hypogylcemia
-lantus 4u and iss. POC 138.
# Transaminitis
-Improving
-F/U outpatient
# Recent aspiration pneumonia
-Treated at [facility]
Secondary hyperparathyroidism
CAD status post CABG
Recent demand ischemia/NSTEMI
-Continue aspirin
Paroxysmal atrial fibrillation
-Continue amiodarone and asa
Combined systolic/diastolic CHF
-Continue HD
Lasix 80 mg QD, might need to reduce or stop if hypotension
Essential hypertension
-Continue clonidine, hydralazine
Hypercholesterolemia
-Continue statin, Zetia
Chronic constipation
-Continue MiraLAX
Chronic anemia
Diverticulosis
History of fatty liver
History of skin cancer
Depression
-Continue vilazodone
Cataract surgery
DNR/DNI
DVT prophylaxis-SCDs in the setting of hematuria
PT/OT- SNF.
Total time spent to see the patient, examine the patient on the floor, review data and lab results, discuss treatment plan with patient, nursing staff around 55 minutes
Anticipated Discharge: > 48 hours
Subjective/Interval History
-
Date of Service: December 24, 2023
Patient has some hematuria. Denies any chest pain or worsening shortness of breath. Afebrile
Objective Data
-
Vital Signs:
Vital Signs
Temp Pulse Resp BP Pulse Ox
98.8 F 58 16 158/57 97
12/24/23 07:00 12/24/23 08:00 12/24/23 07:00 12/24/23 08:00 12/24/23 07:00
I&O
12/23/23 12/24/23 12/25/23
06:59 06:59 06:59
Intake Total 1600 / 1600
Output Total 300 / 300
Balance 1300 / 1300
--- NOTE | 2023-12-24 08:53 | W.PN.URO.CBU ---
Today's Communication / Plan
-
keep Sanches
pt to f/w at [facility] for further care
Assessment / Plan
-
expected hematuria s/p TURBT
Diagnosis
-
Date of Service: December 24, 2023
-
Patient Diagnosis:
78M with hx of prostate cancer, bladder cancer, urinary incontinence
Hx of prostatectomy and artificial urinary sphincter
More recent hx of bladder cancer managed with serial TURBT with recurrences at [place]
s/p recent TURBT and explant of artificial sphincter due to urethral erosion
- Gross hematuria due to recent bladder tumor resection
- Hematuria is mild - given his very low baseline urine output
Subjective
-
comfortable in bed
Objective
-
Vital Signs
Temp Pulse Resp BP Pulse Ox
98.8 F 58 16 158/57 97
12/24/23 07:00 12/24/23 08:00 12/24/23 07:00 12/24/23 08:00 12/24/23 07:00
Intake and Output
12/23/23 12/24/23 12/25/23
06:59 06:59 06:59
Intake Total 1600 / 1600
Output Total 300 / 300
Balance 1300 / 1300
Intake:
Oral fluids 1600 / 1600
IV fluids (Total) 0 / 0
IV piggybacks 0 / 0
Output:
Urine, Sanches 100 / 100
Urine, Voided 200 / 200
Physical Exam
-
Genitalia - Sanches draining small volume of thinly bloody urine
[2023-12-24 11:40] LABS: Glucose - Point of Care 216 mg/dl (70-99)
[2023-12-24] MEDS: NOVOLOG FLEXPEN-LOW RESISTANCE 2 UNITS SC (11:59)
[2023-12-24 14:19] LABS: % Basophils 0.1 % (0-2); % Immature Granulocytes 0.9 % (0-0.5); % Lymphocytes 8.4 % (20.5-51.1); % Monocytes 9.9 % (1.7-9.3); % Neutrophils 78.7 % (42.2-75.2); Absolute Eosinophils 0.2 10^3/uL (0-0.7); Absolute Immature Granulocytes 0.1 10^3/uL (0-0.05); Absolute Monocytes 1.2 10^3/uL (0.1-0.6); Absolute Neutrophils 9.4 10^3/uL (1.4-6.5); Hematocrit 25.3 % (39.0-52.0); Hemoglobin 8.3 g/dL (13.0-18.0); Mean Corp Hgb Conc. 32.8 g/dL (33.0-37.0); Mean Corpuscular Hgb 33.5 pg (27.0-31.0); Mean Platelet Volume 11.5 fL (7.4-10.4); Nucleated Red Blood Cells % 0 % (-); Platelet Count 174 10^3/uL (130-400); Red Blood Cell Count 2.48 10^6/uL (4.70-6.10); Red Cell Dist. Width 18.4 % (11.5-14.5); White Blood Cell Count 11.9 10^3/uL (4.8-10.8)
[2023-12-24 14:30] LABS: INR 1.03; PT 13.4 Sec (11.4-14.6)
--- NOTE | 2023-12-24 14:35 | CM ---
Reviewed chart, Domenico Chauhan stated that pending more information, regarding abx and dialysis they may be able to accept patient. Will call facilities to provide what is needed.
Plan: Case management will continue to follow and assist with discharge planning. Will send further information for consideration for admission.
[2023-12-24 15:00] VITALS: BP 116/48
--- NOTE | 2023-12-24 15:18 | W.PN.ID1 ---
Date of Service
Date of Service: December 24, 2023
Today's Communication
Observe off abx.
Assessment / Plan
Leukocytosis
- improved
Encephalopathy; likely TME
CAD
Prostate/bladder cancer
HTN
Dyslipidemia
DM
ESRD � HD
Recommendations:
Continue off antibiotics for the present time.
Follow WBC.
Monitor temperature curve.
S/P PD cath removal
����������������������������������������������������������
Chief Complaint
-: Leukocytosis
Subjective / Review of Systems
Review of Systems: No Fever and No Chills
Vital Signs / Physical Exam
Vital Signs
Vital Signs
Temp Pulse Resp BP Pulse Ox
98.8 F 58 16 158/57 97
12/24/23 07:00 12/24/23 08:00 12/24/23 07:00 12/24/23 08:00 12/24/23 07:00
Physical Exam
Constitutional: No Acute Distress, Comfortable, Chronically Ill and Non-toxic
Eyes: Sclera Anicteric
Cardiovascular: S1/S2; Negative S3/S4
Pulmonary: Non Labored
Genito-Urinary: Sanches and Hematuria
Psychological: Calm
Objective Data
Lab Data
Lab Results
12/24/23 14:11
PT 13.4 Sec (11.4-14.6) 12/24/23 14:11
INR 1.03 12/24/23 14:11
APTT 26.0 Sec (23.4-35.0) 12/24/23 14:11
Estimated Creat Clear 10 ml/min 12/21/23 12:43
Total Bilirubin 0.4 mg/dl (0.2-1.3) 12/16/23 06:10
AST 53 U/L (17-59) 12/16/23 06:10
ALT 51 U/L (0-50) H 12/16/23 06:10
Alkaline Phosphatase 76 U/L (38-126) 12/16/23 06:10
Most recent labs reviewed.
Micro Results:
12/21/23 10:05 Catheter Tip Culture - Final
Catheter Tip No Growth After 72 Hours
12/15/23 15:00 Blood Culture - Final
Blood/Venous No Growth - Final Report
12/15/23 15:00 Blood Culture - Final
Blood/Venous No Growth - Final Report
Imaging:
12/18/2023 CT head without contrast: No acute intracranial abnormality noted. Mild to moderate age-related parenchymal atrophy. Chronic lacunar infarcts in the caudate heads. Small chronic infarct inferior to the right frontal horn. No intra or
extra-axial mass, hemorrhage or fluid collections noted. Please see full dictation for additional detail. Film personally viewed.
[2023-12-24 15:43] LABS: ALT (SGPT) 14 U/L (0-50); AST (SGOT) 31 U/L (17-59); Alkaline Phosphatase 101 U/L (38-126); Blood Urea Nitrogen 96 mg/dl (9-20); Carbon Dioxide 27 mmol/L (22-30); Chloride 88 mmol/L (98-107); Estimated Creatinine Clearance 9 ml/min; Glucose 148 mg/dl (70-99); Phosphorus 6.5 mg/dl (2.5-4.5); Potassium 5.7 mmol/L (3.5-5.1); Sodium 129 mmol/L (135-145); Total Bilirubin 0.3 mg/dl (0.2-1.3); Total Protein 5.4 g/dl (6.3-8.2); eGFR 7.41
[2023-12-24 16:49] LABS: Glucose - Point of Care 200 mg/dl (70-99)
[2023-12-24] MEDS: NOVOLOG FLEXPEN-LOW RESISTANCE SC (16:50)
--- NOTE | 2023-12-24 17:24 | W.PN.NEPH.HD ---
Assessment
-
pt seen during HD
vitals are stable
UF as tolerates
renal diet and FR
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
would still need skin biopsy to confirm diagnosis
Need strict BMD control-corrected calcium in normal range, avoid melissa meds-not on any currently
need better phos control on renvela
will benefit from WC out pt too
d/w pt
Progress Note - Hemodialysis
-
Date of Service: December 24, 2023
Duration: 30 minutes and 3 hours
Potassium Bath: 2
Calcium Bath: 2.5
Opti-Dialyzer: 160
Ultrafiltration: Other (2-2.5kg)
Blood Flow: 400
Dialysate Flow: 600
Heparin: no
EPO: 8000
[2023-12-24] MEDS: RETACRIT 8000 UNITS IV (17:40)
[2023-12-24] MEDS: SODIUM THIOSULFATE 250 GRAMS IV (18:15)
[2023-12-24 21:35] LABS: Glucose - Point of Care 253 mg/dl (70-99)
[2023-12-24] MEDS: LANTUS 0.0400000000000000008 UNITS SC (22:17)
[2023-12-24] MEDS: XALATAN OPHTHALMIC SOLUTION 1 DROP BOTH EYES (22:17)
[2023-12-24 23:00] VITALS: BP 160/50
[2023-12-24] MEDS: TESSALON PERLES 100 MG PO (23:23)
[2023-12-24] MEDS: DESYREL 50 MG PO (23:23)
[2023-12-25] MEDS: DILAUDID 2 MG PO ×3 (00:38→21:59)
[2023-12-25 06:00] VITALS: BMI 30.5
[2023-12-25 06:08] LABS: % Basophils 0.2 % (0-2); % Eosinophils 1.3 % (0-6); % Immature Granulocytes 1.1 % (0-0.5); % Monocytes 10.7 % (1.7-9.3); % Neutrophils 79.7 % (42.2-75.2); Absolute Eosinophils 0.2 10^3/uL (0-0.7); Absolute Immature Granulocytes 0.1 10^3/uL (0-0.05); Absolute Lymphocytes 0.9 10^3/uL (1.2-3.4); Absolute Monocytes 1.4 10^3/uL (0.1-0.6); Absolute Neutrophils 10.2 10^3/uL (1.4-6.5); Hematocrit 29.4 % (39.0-52.0); Hemoglobin 9.6 g/dL (13.0-18.0); Mean Corp Hgb Conc. 32.7 g/dL (33.0-37.0); Mean Corpuscular Hgb 32.8 pg (27.0-31.0); Mean Corpuscular Volume 100.3 fL (80.0-94.0); Mean Platelet Volume 11.2 fL (7.4-10.4); Nucleated Red Blood Cells % 0 % (-); Platelet Count 181 10^3/uL (130-400); Red Blood Cell Count 2.93 10^6/uL (4.70-6.10); White Blood Cell Count 12.8 10^3/uL (4.8-10.8)
[2023-12-25 07:14] LABS: Blood Urea Nitrogen 45 mg/dl (9-20); Carbon Dioxide 28 mmol/L (22-30); Chloride 95 mmol/L (98-107); Estimated Creatinine Clearance 15 ml/min; Glucose 141 mg/dl (70-99); Potassium 4.9 mmol/L (3.5-5.1); Sodium 132 mmol/L (135-145); eGFR 14.95
[2023-12-25 07:23] LABS: Glucose - Point of Care 174 mg/dl (70-99)
[2023-12-25 07:30] VITALS: BP 153/61
--- NOTE | 2023-12-25 07:54 | W.PN.HOSP.TC ---
Today's Communication/Plan
-
Plan for skin biopsy. Discharge planning in progress.
Assessment / Plan
Assessment / Plan
Physical exam:
General: no acute distress and chronically ill
HEENT: Normocephalic, Atraumatic and Moist Mucous Membranes
Respiratory: Decreased breath sounds and few crackles in bases; Negative Wheezes or Rhonchi
Cardiac: Regular Rhythm and S1/S2
GI: Soft, Nontender and Nondistended, PD catheter removed
Musculoskeletal: Bilateral edema. No Clubbing, No Cyanosis
Neuro: Generalized weakness present.
Skin: necrotic ulcerated wounds seen on lower extremities
Psych: Calm
A/P:
# Necrotic black skin ulcers in lower extremities
high suspicious for calciphylaxis
Obtain calcium, phosphate, PTH
Avoid calcium containing meds and continue Renvela
Discussed with surgery today to evaluate for skin biopsy
Consideration with sodium thiosulfate--> it appears nurse orthopaedic starting this medication.
c/w HD.
Pain control, adjusted dose of oxycodone.
Updated son over the phone today as well as yesterday.
Updated RN
# Toxic metabolic encephalopathy (weakness/confusion multifactorial secondary to end-stage renal disease/hypoglycemia in the setting of diarrhea/decreased oral intake/insulin use/diabetes mellitus type 2,/recent hospitalization):
-Monitor mental status. Adjust oxycodone dose according to renal function
-Off antibiotics. Follow up blood cultures but no growth so far.
-Hemodialysis
-Resumed Lantus but will dose further to 4u. POC not accurate ?due to PVD.
-Insulin sliding scale, Accu-Cheks. Adjust insulin as needed. POC is stabilized.
-he also was treated for possible pneumonia; PD ineffective-transition to HD; was recommended rehab but refused.
-PT OT recommends-patient agreeable for rehab.
-CT head with chronic changes . Chronic infarcts noted.
-He is interested in rehab. Mentation starting to stabilize however does wax and wane at times.
#Leukocytosis:
-In light of patient vascular access and leukocytosis, s/p ordered blood cultures on 12/14
-WBC 12.8 today
-Follow-up blood cultures negative so far
-Off antibiotics.
-Continue to monitor trend
-Peritoneal catheter removed and tip sent for culture
-CT pelvis negative for abscess
-ID on board.
# Hematuria in the setting of recent bladder tumor resection and exchange sphincter;
#Prostate/bladder cancer status post recent prostatectomy and bladder scraping with chronic Sanches catheter and artificial urinary sphincter status post explant
-Mild hematuria expected. Patient with scant urinary output. Continue to trend hemoglobin. Transfuse as needed.
-Urology has been consulted and no acute intervention.
# Mild subacute blood loss anemia due to hematuria in the setting of recent surgery
-Trend CBC transfuse as needed
# Diarrhea felt to be secondary to antibiotic use, rule out C. difficile. No BM reported here-will monitor
-No diarrhea
-BRAT diet
# Inability to manage peritoneal dialysis
# History of ESRD on peritoneal dialysis
-Nephrology to perform hemodialysis through AV fistula--> consulted nephrology on 12/14 and started on HD. Cr better today after HD yesterday.
-PD catheter removed on 12/20.
-PT/OT for rehab
-Resumed sevelamer
#Anemia
-stable
-Hemoglobin 9.6 today
-Continue to monitor
#IDDM with hypogylcemia
-lantus 4u and iss. POC 138.
# Transaminitis
-Improving
-F/U outpatient
# Recent aspiration pneumonia
-Treated at [facility]
Secondary hyperparathyroidism
CAD status post CABG
Recent demand ischemia/NSTEMI
-Continue aspirin
Paroxysmal atrial fibrillation
-Continue amiodarone and asa
Combined systolic/diastolic CHF
-Continue HD
Lasix 80 mg QD, might need to reduce or stop if hypotension
Essential hypertension
-Continue clonidine, hydralazine
Hypercholesterolemia
-Continue statin, Zetia
Chronic constipation
-Continue MiraLAX
Chronic anemia
Diverticulosis
History of fatty liver
History of skin cancer
Depression
-Continue vilazodone
Cataract surgery
DNR/DNI
DVT prophylaxis-SCDs in the setting of hematuria
PT/OT- SNF.
Anticipated Discharge: 24 - 48 hours
Subjective/Interval History
-
Date of Service: December 25, 2023
No cp or sob.
Objective Data
-
Labs:
Laboratory Results
12/25/23
05:59
WBC 12.8 H
Hgb 9.6 L
Hct 29.4 L
Plt Count 181
Sodium 132 L
Potassium 4.9
Chloride 95 L
Carbon Dioxide 28
BUN 45 H
Creatinine 3.9 H
Glucose 141 H
Calcium 8.0 L
Vital Signs:
Vital Signs
Temp Pulse Resp BP Pulse Ox
98.7 F 72 16 153/61 94
12/25/23 07:30 12/25/23 07:30 12/25/23 07:30 12/25/23 07:30 12/25/23 07:30
I&O
12/24/23 12/25/23 12/26/23
06:59 06:59 06:59
Intake Total 1600 / 1600 315 / 315
Output Total 300 / 300 200 / 200
Balance 1300 / 1300 115 / 115
Review of Systems
-
All other systems: Reviewed and negative
[2023-12-25] MEDS: RENVELA 2400 MG PO ×3 (08:07→16:46)
[2023-12-25] MEDS: ZETIA 10 MG PO (08:07)
[2023-12-25] MEDS: LASIX 80 MG PO (08:08)
[2023-12-25] MEDS: APRESOLINE 50 MG PO (08:08)
[2023-12-25] MEDS: ASPIR LOW (ENTERIC COATED) 81 MG PO (08:08)
[2023-12-25] MEDS: CATAPRES 0.299999999999999989 MG PO ×2 (08:08→21:59)
[2023-12-25] MEDS: PACERONE 100 MG PO (08:08)
[2023-12-25] MEDS: LIPITOR 40 MG PO (08:08)
[2023-12-25] MEDS: NOVOLOG FLEXPEN-LOW RESISTANCE 1 UNITS SC (08:09)
[2023-12-25] MEDS: NON-FORMULARY ITEM 40 MG PO (08:10)
[2023-12-25] MEDS: ANTIFUNGAL CLEAR 1 APPLIC TOPICAL ×2 (08:10→22:06)
[2023-12-25] MEDS: TESSALON PERLES 100 MG PO ×2 (08:20→19:46)
[2023-12-25] MEDS: MIRALAX 17 GRAMS PO ×2 (08:23→17:24)
[2023-12-25 09:02] LABS: Intact PTH 362.6 pg/ml (13.6-85.8)
[2023-12-25 09:30] VITALS: BMI 30.5
[2023-12-25 11:16] VITALS: BP 123/53; PULSE 65
[2023-12-25 11:50] LABS: Glucose - Point of Care 222 mg/dl (70-99)
[2023-12-25] MEDS: NOVOLOG FLEXPEN-LOW RESISTANCE 2 UNITS SC ×2 (11:51→16:47)
[2023-12-25 15:19] VITALS: BP 129/72
--- NOTE | 2023-12-25 15:31 | W.PN.NEPH.PH ---
Addendum entered and electronically signed by Lacie Cason MD 12/25/23 15:40:
resume MVI nephrocaps instead of renalcap while in hospital
Original Note:
Today's Communication / Plan
-
HD tomorrow with sodium thiosulfate
Assessment/Plan
-
Assessment:
History of colonic AVMs (APC February 2023, May 2023, Sep 30)
ESRD on PD (recent conversion from HD)
chronic combined Heart failure with reduced EF46%, DD stage2
CAD status post CABG 2018
Edema
Bladder CA status post TURBT
Prostate CA status post prostatectomy
Diabetes mellitus type 2
Hypertension multidrug
Hypercholesterolemia
Paroxysmal atrial fibrillation on anticoagulation
Secondary hyperparathyroidism
Chronic back pain requiring epidural injections
Left brachiocephalic AV fistula
Depression
Leukocytosis
Falls
Plan:
TOlearting HD so far with less twitching
MS seem back to baseline
for skin biopsy today to r/o calciphylaxis
started sodium thiosulfate with HD on 12/23 empirically
need strict BMD control. PTH high as expected
no calcium meds, titrate renvela or add non calcium binder for better phos control
AVF functioning well
s/p PD catheter removal
gross hematuria improving in che
need placement at d/c
-
-
Date of Service: December 25, 2023
CC / HPI / ROS
-
Chief Complaint:
ESRD
History of Present Illness:
ESRD MWF
BP stable
no fever
Review of Systems:
no CP/SOB
mental status at baseline
macrohematuria via che-improving
Labs
-
Labs:
WBC 12.8 10^3/uL (4.8-10.8) H 03/12/24 05:59
RBC 2.93 10^6/uL (4.70-6.10) L 12/25/23 05:59
Hgb 9.6 g/dL (13.0-18.0) L 12/25/23 05:59
Hct 29.4 % (39.0-52.0) L 12/25/23 05:59
Plt Count 181 10^3/uL (130-400) 12/25/23 05:59
Sodium 132 mmol/L (135-145) L 12/25/23 05:59
Potassium 4.9 mmol/L (3.5-5.1) 12/25/23 05:59
Chloride 95 mmol/L (98-107) L 12/25/23 05:59
Carbon Dioxide 28 mmol/L (22-30) 12/25/23 05:59
BUN 45 mg/dl (9-20) H 12/25/23 05:59
Creatinine 3.9 mg/dL (0.7-1.3) H 12/25/23 05:59
eGFR 14.95 12/25/23 05:59
Glucose 141 mg/dl (70-99) H 12/25/23 05:59
Calcium 8.0 mg/dl (8.4-10.2) L 12/25/23 05:59
Phosphorus 6.5 mg/dl (2.5-4.5) H 12/24/23 14:11
Albumin 3.0 g/dl (3.5-5.0) L 12/24/23 14:11
Physical Exam
-
Vital Signs:
Vital Signs
Temp Pulse Resp BP Pulse Ox
97.7 F 61 18 129/72 97
12/25/23 15:19 12/25/23 15:19 12/25/23 15:19 12/25/23 15:19 12/25/23 15:19
Cardiovascular:: Regular rate and rhythm
Respiratory:: Bilateral: CTA
Lung Excursion:: Normal
Abdomen:: Nontender and Soft
Extremity Edema:: None: Bilateral:
Che Catheter: Yes
[2023-12-25] MEDS: XYLOCAINE 1% WITH EPINEPHRINE 20 ML INFIL (16:21)
--- NOTE | 2023-12-25 16:34 | W.PN.SURGUPD ---
Surgical Update
Surgical Update
Request for a skin biopsy by primary service to rule out calciphylaxis.
Skin biopsy of the RLE, anterior lares was performed. A 1 x 0.5 cm ellipse of skin and subcutaneous tissue was performed at the leading edge of a necrotic wound. Area was prepped and draped in usual sterile fashion using Betadine. Local anesthetic
in the form of 1% Lidocaine with Epinephrine was used as a field block. An ellipse of skin and subcutaneous tissue was taken using a 15 blade scalpel. Specimen was placed in a sterile cup to be sent down to pathology for final analysis.
Hemostasis was well-maintained and assured using pressure. Skin was reapproximated using a interrupted simple 2-0 Nylon. Dressing in the form of Adaptic, gauze, tape was applied.
Patient tolerated procedure well.
[2023-12-25] MEDS: NEPHROCAP 1 CAPSULE PO (16:46)
[2023-12-25 16:48] LABS: Glucose - Point of Care 214 mg/dl (70-99)
[2023-12-25] MEDS: DULCOLAX 10 MG RECTAL (17:24)
[2023-12-25] MEDS: COLACE 100 MG PO (19:46)
[2023-12-25] MEDS: LANTUS 0.0400000000000000008 UNITS SC (22:00)
[2023-12-25] MEDS: XALATAN OPHTHALMIC SOLUTION 1 DROP BOTH EYES (22:01)
[2023-12-25 23:00] VITALS: BP 155/55
[2023-12-26 06:00] VITALS: BMI 30.3
[2023-12-26 07:00] VITALS: BP 168/71
[2023-12-26 08:19] LABS: Glucose - Point of Care 145 mg/dl (70-99)
[2023-12-26] MEDS: TESSALON PERLES 100 MG PO ×3 (08:23→21:47)
[2023-12-26] MEDS: NOVOLOG FLEXPEN-LOW RESISTANCE SC ×2 (08:23→11:54)
[2023-12-26 08:33] LABS: Hematocrit 25.5 % (39.0-52.0); Hemoglobin 8.5 g/dL (13.0-18.0); Mean Corp Hgb Conc. 33.3 g/dL (33.0-37.0); Mean Corpuscular Hgb 33.7 pg (27.0-31.0); Mean Corpuscular Volume 101.2 fL (80.0-94.0); Mean Platelet Volume 11.5 fL (7.4-10.4); Platelet Count 172 10^3/uL (130-400); Red Blood Cell Count 2.52 10^6/uL (4.70-6.10); Red Cell Dist. Width 18.1 % (11.5-14.5); White Blood Cell Count 12.4 10^3/uL (4.8-10.8)
--- NOTE | 2023-12-26 08:43 | W.PN.HOSP.TC ---
Today's Communication/Plan
-
enema today. Hemodialysis today. Thiosulfate. Discharge planning per
Assessment / Plan
Assessment / Plan
Physical exam:
General: no acute distress and chronically ill
HEENT: Normocephalic, Atraumatic and Moist Mucous Membranes
Respiratory: Decreased breath sounds and few crackles in bases; Negative Wheezes or Rhonchi
Cardiac: Regular Rhythm and S1/S2
GI: Soft, Nontender and Nondistended, PD catheter removed
Musculoskeletal: Bilateral edema. No Clubbing, No Cyanosis
Neuro: Generalized weakness present.
Skin: necrotic ulcerated wounds seen on lower extremities
Psych: Calm
A/P:
# Necrotic black skin ulcers in lower extremities
high suspicious for calciphylaxis
Obtained calcium, phosphate, PTH--> as expected calcium low and high but product not so elevated, and PTH elevated at suspected as well.
Avoid calcium containing meds and continue Renvela
Appreciate surgery input. Status post skin biopsy on 12/24
Consideration with sodium thiosulfate--> it appears dressmaker garment fitter starting this medication.
c/w HD.
Pain control, adjusted dose of oxycodone.
Updated son over the phone today on 12/25
Updated RN
#Constipation:
-Started on bowel regimen yesterday
-Will use enemas today per patient preference
# Toxic metabolic encephalopathy (weakness/confusion multifactorial secondary to end-stage renal disease/hypoglycemia in the setting of diarrhea/decreased oral intake/insulin use/diabetes mellitus type 2,/recent hospitalization):
-Monitor mental status. Adjust oxycodone dose according to renal function
-Off antibiotics. Follow up blood cultures but no growth so far.
-Hemodialysis
-Resumed Lantus but will dose further to 4u. POC not accurate ?due to PVD.
-Insulin sliding scale, Accu-Cheks. Adjust insulin as needed. POC is stabilized.
-he also was treated for possible pneumonia; PD ineffective-transition to HD; was recommended rehab but refused.
-PT OT recommends-patient agreeable for rehab.
-CT head with chronic changes . Chronic infarcts noted.
-He is interested in rehab. Mentation starting to stabilize however does wax and wane at times.
#Leukocytosis:
-In light of patient vascular access and leukocytosis, s/p ordered blood cultures on 12/14
-WBC 12.8 today
-Follow-up blood cultures negative so far
-Off antibiotics.
-Continue to monitor trend
-Peritoneal catheter removed and tip sent for culture
-CT pelvis negative for abscess
-ID on board.
# Hematuria in the setting of recent bladder tumor resection and exchange sphincter;
#Prostate/bladder cancer status post recent prostatectomy and bladder scraping with chronic Sanches catheter and artificial urinary sphincter status post explant
-Mild hematuria expected. Patient with scant urinary output. Continue to trend hemoglobin. Transfuse as needed.
-Urology has been consulted and no acute intervention.
# Mild subacute blood loss anemia due to hematuria in the setting of recent surgery
-Trend CBC transfuse as needed
# Diarrhea felt to be secondary to antibiotic use, rule out C. difficile. No BM reported here-will monitor
-No diarrhea
-BRAT diet
# Inability to manage peritoneal dialysis
# History of ESRD on peritoneal dialysis
-Nephrology to perform hemodialysis through AV fistula--> consulted nephrology on 12/14 and started on HD. Cr better today after HD yesterday.
-PD catheter removed on 12/20.
-PT/OT for rehab
-Resumed sevelamer
#Anemia
-stable
-Hemoglobin 9.6 today
-Continue to monitor
#IDDM with hypogylcemia
-lantus 4u and iss. POC 138.
# Transaminitis
-Improving
-F/U outpatient
# Recent aspiration pneumonia
-Treated at [facility]
Secondary hyperparathyroidism
CAD status post CABG
Recent demand ischemia/NSTEMI
-Continue aspirin
Paroxysmal atrial fibrillation
-Continue amiodarone and asa
Combined systolic/diastolic CHF
-Continue HD
Lasix 80 mg QD, might need to reduce or stop if hypotension
Essential hypertension
-Continue clonidine, hydralazine
Hypercholesterolemia
-Continue statin, Zetia
Chronic constipation
-Continue MiraLAX
Chronic anemia
Diverticulosis
History of fatty liver
History of skin cancer
Depression
-Continue vilazodone
Cataract surgery
DNR/DNI
DVT prophylaxis-SCDs in the setting of hematuria
PT/OT- SNF.
Anticipated Discharge: 24 - 48 hours
Subjective/Interval History
-
Date of Service: December 26, 2023
Patient complains of constipation. Patient is having hemodialysis today. He is alert and oriented. Afebrile.
Objective Data
-
Labs:
Laboratory Results
12/26/23
08:16
WBC 12.4 H
Hgb 8.5 L
Hct 25.5 L
Plt Count 172
Sodium Pending
Potassium Pending
Chloride Pending
Carbon Dioxide Pending
BUN Pending
Creatinine Pending
Glucose Pending
Calcium Pending
Vital Signs:
Vital Signs
Temp Pulse Resp BP Pulse Ox
98.8 F 70 20 168/71 98
12/26/23 07:00 12/26/23 07:00 12/26/23 07:00 12/26/23 07:00 12/26/23 07:00
I&O
12/25/23 12/26/23 12/27/23
06:59 06:59 06:59
Intake Total 315 / 315 350 / 350
Output Total 200 / 200 160 / 160
Balance 115 / 115 190 / 190
[2023-12-26] MEDS: RETACRIT 6000 UNITS IV (08:44)
[2023-12-26 08:50] LABS: Blood Urea Nitrogen 55 mg/dl (9-20); Calcium 8.2 mg/dl (8.4-10.2); Carbon Dioxide 29 mmol/L (22-30); Chloride 93 mmol/L (98-107); Estimated Creatinine Clearance 15 ml/min; Glucose 131 mg/dl (70-99); Potassium 4.4 mmol/L (3.5-5.1); Sodium 130 mmol/L (135-145); eGFR 14.51
[2023-12-26] MEDS: SODIUM THIOSULFATE 250 GRAMS IV (10:23)
--- NOTE | 2023-12-26 10:57 | W.PN.ID1 ---
Date of Service
Date of Service: December 26, 2023
Today's Communication
Sign off.
Assessment / Plan
Leukocytosis
- persistent low-grade.
Encephalopathy; likely TME
CAD
Prostate/bladder cancer
HTN
Dyslipidemia
DM
ESRD � HD
Recommendations:
No infectious process noted. Continue off antibiotics.
S/P PD cath removal. Culture negative.
Little more to offer from an Infectious Disease standpoint.
Will see again at your request.
����������������������������������������������������������
Chief Complaint
-: Leukocytosis
Subjective / Review of Systems
Review of Systems: No Fever
Vital Signs / Physical Exam
Vital Signs
Vital Signs
Temp Pulse Resp BP Pulse Ox
98.8 F 70 20 168/71 98
12/26/23 07:00 12/26/23 07:00 12/26/23 07:00 12/26/23 07:00 12/26/23 07:00
Physical Exam
Constitutional: No Acute Distress, Comfortable and Chronically Ill
Cardiovascular: S1/S2; Negative S3/S4
Pulmonary: Non Labored
Gastrointestinal: Soft and Non Distended
Objective Data
Lab Data
Lab Results
12/26/23 08:16
12/26/23 08:16
PT 13.4 Sec (11.4-14.6) 12/24/23 14:11
INR 1.03 12/24/23 14:11
APTT 26.0 Sec (23.4-35.0) 12/24/23 14:11
Estimated Creat Clear 15 ml/min 12/26/23 08:16
Total Bilirubin 0.3 mg/dl (0.2-1.3) 12/24/23 14:11
AST 31 U/L (17-59) 12/24/23 14:11
ALT 14 U/L (0-50) 12/24/23 14:11
Alkaline Phosphatase 101 U/L (38-126) 12/24/23 14:11
Most recent labs reviewed.
Micro Results:
12/21/23 10:05 Catheter Tip Culture - Final
Catheter Tip No Growth After 72 Hours
12/15/23 15:00 Blood Culture - Final
Blood/Venous No Growth - Final Report
12/15/23 15:00 Blood Culture - Final
Blood/Venous No Growth - Final Report
Imaging:
12/18/2023 CT head without contrast: No acute intracranial abnormality noted. Mild to moderate age-related parenchymal atrophy. Chronic lacunar infarcts in the caudate heads. Small chronic infarct inferior to the right frontal horn. No intra or
extra-axial mass, hemorrhage or fluid collections noted. Please see full dictation for additional detail. Film personally viewed.
--- NOTE | 2023-12-26 11:43 | W.PN.NEPH.HD ---
Assessment
-
resting comfortably on HD
sodium thiosulfate with HD today
Progress Note - Hemodialysis
-
Date of Service: December 26, 2023
Duration: 30 minutes and 3 hours
Potassium Bath: 3
Calcium Bath: 2.5
Opti-Dialyzer: 160
Ultrafiltration: Other
Blood Flow: 400
Dialysate Flow: 600
EPO: 6K
[2023-12-26] MEDS: CATAPRES 0.299999999999999989 MG PO ×2 (11:46→21:49)
[2023-12-26] MEDS: MIRALAX 17 GRAMS PO (11:46)
[2023-12-26] MEDS: RENVELA 2400 MG PO ×2 (11:46→17:11)
[2023-12-26] MEDS: ASPIR LOW (ENTERIC COATED) 81 MG PO (11:47)
[2023-12-26] MEDS: NEPHROCAP 1 CAPSULE PO (11:47)
[2023-12-26] MEDS: RENVELA PO (11:47)
[2023-12-26] MEDS: NON-FORMULARY ITEM 40 MG PO (11:47)
[2023-12-26] MEDS: APRESOLINE 50 MG PO (11:48)
[2023-12-26] MEDS: COLACE 100 MG PO ×2 (11:48→21:49)
[2023-12-26] MEDS: LIPITOR 40 MG PO (11:48)
[2023-12-26] MEDS: PACERONE 100 MG PO (11:48)
[2023-12-26] MEDS: ZETIA 10 MG PO (11:49)
[2023-12-26] MEDS: ANTIFUNGAL CLEAR 1 APPLIC TOPICAL ×2 (11:49→21:51)
[2023-12-26] MEDS: LASIX 80 MG PO (11:49)
[2023-12-26 11:54] LABS: Glucose - Point of Care 147 mg/dl (70-99)
[2023-12-26 15:00] VITALS: BP 109/64
[2023-12-26] MEDS: TYLENOL 650 MG PO (17:10)
[2023-12-26 17:26] LABS: Glucose - Point of Care 262 mg/dl (70-99)
[2023-12-26] MEDS: NOVOLOG FLEXPEN-LOW RESISTANCE 3 UNITS SC (17:51)
[2023-12-26 21:42] LABS: Glucose - Point of Care 355 mg/dl (70-99)
[2023-12-26] MEDS: LANTUS 0.0400000000000000008 UNITS SC (21:48)
[2023-12-26 23:00] VITALS: BP 137/45
[2023-12-27] MEDS: XALATAN OPHTHALMIC SOLUTION 1 DROP BOTH EYES ×2 (01:34→23:42)
[2023-12-27 07:00] VITALS: BP 159/71
[2023-12-27 07:08] LABS: % Basophils 0.1 % (0-2); % Eosinophils 1.7 % (0-6); % Lymphocytes 9.2 % (20.5-51.1); % Monocytes 11.2 % (1.7-9.3); % Neutrophils 76.8 % (42.2-75.2); Absolute Eosinophils 0.2 10^3/uL (0-0.7); Absolute Immature Granulocytes 0.2 10^3/uL (0-0.05); Absolute Lymphocytes 1.3 10^3/uL (1.2-3.4); Absolute Monocytes 1.6 10^3/uL (0.1-0.6); Hematocrit 26.9 % (39.0-52.0); Hemoglobin 8.6 g/dL (13.0-18.0); Mean Corpuscular Volume 103.1 fL (80.0-94.0); Mean Platelet Volume 11.7 fL (7.4-10.4); Nucleated Red Blood Cells % 0 % (-); Platelet Count 189 10^3/uL (130-400); Red Blood Cell Count 2.61 10^6/uL (4.70-6.10); Red Cell Dist. Width 18.1 % (11.5-14.5); White Blood Cell Count 14.3 10^3/uL (4.8-10.8)
[2023-12-27 07:11] LABS: Blood Urea Nitrogen 39 mg/dl (9-20); Carbon Dioxide 28 mmol/L (22-30); Chloride 96 mmol/L (98-107); Estimated Creatinine Clearance 16 ml/min; Glucose 122 mg/dl (70-99); Potassium 4.3 mmol/L (3.5-5.1); Sodium 131 mmol/L (135-145); eGFR 16.46
[2023-12-27 08:00] LABS: Glucose - Point of Care 339 mg/dl (70-99)
--- NOTE | 2023-12-27 08:45 | W.PN.HOSP.TC ---
Today's Communication/Plan
-
Continue current management. Discharge planning in progress
Assessment / Plan
Assessment / Plan
Physical exam:
General: no acute distress and chronically ill
HEENT: Normocephalic, Atraumatic and Moist Mucous Membranes
Respiratory: Decreased breath sounds and few crackles in bases; Negative Wheezes or Rhonchi
Cardiac: Regular Rhythm and S1/S2
GI: Soft, Nontender and Nondistended, PD catheter removed
Musculoskeletal: Bilateral edema. No Clubbing, No Cyanosis
Neuro: Generalized weakness present.
Skin: necrotic ulcerated wounds seen on lower extremities
Psych: Calm
A/P:
# Necrotic black skin ulcers in lower extremities
high suspicious for calciphylaxis
Obtained calcium, phosphate, PTH--> as expected calcium low and high but product not so elevated, and PTH elevated at suspected as well.
Avoid calcium containing meds and continue Renvela
Appreciate surgery input. Status post skin biopsy on 12/24--> pathology pending (can be follow-up as outpatient)
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
c/w HD.
Pain control, adjusted dose of oxycodone.
Updated son over the phone on 12/25
Updated RN
#Constipation:
-Started on bowel regimen
-Will use of antibiotics yesterday per patient preference
# Toxic metabolic encephalopathy (weakness/confusion multifactorial secondary to end-stage renal disease/hypoglycemia in the setting of diarrhea/decreased oral intake/insulin use/diabetes mellitus type 2,/recent hospitalization):
-Monitor mental status. Adjust oxycodone dose according to renal function
-Off antibiotics. Follow up blood cultures but no growth so far.
-Hemodialysis
-Resumed Lantus but will dose further to 4u. POC not accurate ?due to PVD.
-Insulin sliding scale, Accu-Cheks. Adjust insulin as needed. POC is stabilized.
-he also was treated for possible pneumonia; PD ineffective-transition to HD; was recommended rehab but refused.
-PT OT recommends-patient agreeable for rehab.
-CT head with chronic changes . Chronic infarcts noted.
-He is interested in rehab. Mentation starting to stabilize however does wax and wane at times.
#Leukocytosis:
-In light of patient vascular access and leukocytosis, s/p ordered blood cultures on 12/14
-WBC 14.3 today
-Follow-up blood cultures negative so far
-Off antibiotics.
-Continue to monitor trend
-Peritoneal catheter removed and tip sent for culture
-CT pelvis negative for abscess
-ID on board and signed off.
# Hematuria in the setting of recent bladder tumor resection and exchange sphincter;
#Prostate/bladder cancer status post recent prostatectomy and bladder scraping with chronic Sanches catheter and artificial urinary sphincter status post explant
-Mild hematuria expected. Patient with scant urinary output. Continue to trend hemoglobin. Transfuse as needed.
-Urology has been consulted and no acute intervention.
# Mild subacute blood loss anemia due to hematuria in the setting of recent surgery
-Trend CBC transfuse as needed
# Diarrhea felt to be secondary to antibiotic use, rule out C. difficile. No BM reported here-will monitor
-No diarrhea
-BRAT diet
# Inability to manage peritoneal dialysis
# History of ESRD on peritoneal dialysis
-Nephrology continues hemodialysis
-PD catheter removed on 12/20.
-PT/OT for rehab
-Resumed sevelamer
#Anemia
-stable
-Hemoglobin 8.6 today
-Continue to monitor
#IDDM with hypogylcemia
-lantus 4u and iss. POC 138.
# Transaminitis
-Improving
-F/U outpatient
# Recent aspiration pneumonia
-Treated at [facility]
Secondary hyperparathyroidism
CAD status post CABG
Recent demand ischemia/NSTEMI
-Continue aspirin
Paroxysmal atrial fibrillation
-Continue amiodarone and asa
Combined systolic/diastolic CHF
-Continue HD
Lasix 80 mg QD, might need to reduce or stop if hypotension
Essential hypertension
-Continue clonidine, hydralazine
Hypercholesterolemia
-Continue statin, Zetia
Chronic constipation
-Continue MiraLAX
Chronic anemia
Diverticulosis
History of fatty liver
History of skin cancer
Depression
-Continue vilazodone
Cataract surgery
DNR/DNI
DVT prophylaxis-SCDs in the setting of hematuria
PT/OT- SNF.
Anticipated Discharge: Today
Subjective/Interval History
-
Date of Service: December 27, 2023
Patient denies any chest pain or shortness of breath. Afebrile
Objective Data
-
Labs:
Laboratory Results
12/27/23
06:12
WBC 14.3 H
Hgb 8.6 L
Hct 26.9 L
Plt Count 189
Sodium 131 L
Potassium 4.3
Chloride 96 L
Carbon Dioxide 28
BUN 39 H
Creatinine 3.6 H
Glucose 122 H
Calcium 8.0 L
Vital Signs:
Vital Signs
Temp Pulse Resp BP Pulse Ox
98.5 F 69 18 159/71 94
12/27/23 07:00 12/27/23 07:00 12/27/23 07:00 12/27/23 07:00 12/27/23 07:00
I&O
12/26/23 12/27/23 12/28/23
06:59 06:59 06:59
Intake Total 350 / 350 100 / 100
Output Total 160 / 160 175 / 175
Balance 190 / 190 -75 / -75
[2023-12-27] MEDS: RENVELA 2400 MG PO ×3 (08:59→17:28)
[2023-12-27] MEDS: COLACE 100 MG PO ×2 (08:59→23:41)
[2023-12-27] MEDS: ASPIR LOW (ENTERIC COATED) 81 MG PO (08:59)
[2023-12-27] MEDS: MIRALAX 17 GRAMS PO (08:59)
[2023-12-27 09:00] VITALS: BMI 30.6
[2023-12-27] MEDS: NEPHROCAP 1 CAPSULE PO (09:00)
[2023-12-27] MEDS: APRESOLINE 50 MG PO (09:00)
[2023-12-27] MEDS: PACERONE 100 MG PO (09:00)
[2023-12-27] MEDS: LIPITOR 40 MG PO (09:00)
[2023-12-27] MEDS: CATAPRES 0.299999999999999989 MG PO ×2 (09:00→23:40)
[2023-12-27] MEDS: ZETIA 10 MG PO (09:00)
[2023-12-27] MEDS: NON-FORMULARY ITEM 40 MG PO (09:01)
[2023-12-27] MEDS: LASIX 80 MG PO (09:01)
[2023-12-27] MEDS: ANTIFUNGAL CLEAR 1 APPLIC TOPICAL ×2 (09:02→23:39)
[2023-12-27] MEDS: NOVOLOG FLEXPEN-LOW RESISTANCE 4 UNITS SC ×2 (09:02→17:28)
[2023-12-27] MEDS: TESSALON PERLES 100 MG PO ×2 (11:42→23:48)
[2023-12-27] MEDS: NOVOLOG FLEXPEN-LOW RESISTANCE 3 UNITS SC (11:45)
[2023-12-27 11:51] LABS: Glucose - Point of Care 264 mg/dl (70-99)
[2023-12-27 12:15] VITALS: BP 164/66; PULSE 66; O2SAT 95
[2023-12-27 12:29] VITALS: BP 159/71; PULSE 80
--- NOTE | 2023-12-27 12:33 | W.PN.NEPH.PH ---
Today's Communication / Plan
-
- awaiting skin biopsy results
- pending placement
Assessment/Plan
-
Assessment:
History of colonic AVMs (APC February 2023, May 2023, Sep 30)
ESRD on PD (recent conversion from HD)
chronic combined Heart failure with reduced EF46%, DD stage2
CAD status post CABG 2018
Edema
Bladder CA status post TURBT
Prostate CA status post prostatectomy
Diabetes mellitus type 2
Hypertension multidrug
Hypercholesterolemia
Paroxysmal atrial fibrillation on anticoagulation
Secondary hyperparathyroidism
Chronic back pain requiring epidural injections
Left brachiocephalic AV fistula
Depression
Leukocytosis
Falls
Plan:
TOlearting HD so far with less twitching
MS seem back to baseline
s/p skin biopsy, awaiting results
started sodium thiosulfate with HD on 12/23 empirically
need strict BMD control. PTH high as expected
no calcium meds, titrate renvela or add non calcium binder for better phos control
AVF functioning well
s/p PD catheter removal
gross hematuria improving in che
please avioid fleet enemas
need placement
-
-
Date of Service: December 27, 2023
CC / HPI / ROS
-
Chief Complaint:
ESRD
History of Present Illness:
ESRD MWF
BP stable
no fever
Review of Systems:
no CP/SOB
mental status at baseline
macrohematuria via che-improving
Labs
-
Labs:
WBC 14.3 10^3/uL (4.8-10.8) H 12/27/23 06:12
RBC 2.61 10^6/uL (4.70-6.10) L 12/27/23 06:12
Hgb 8.6 g/dL (13.0-18.0) L 12/27/23 06:12
Hct 26.9 % (39.0-52.0) L 12/27/23 06:12
Plt Count 189 10^3/uL (130-400) 12/27/23 06:12
Sodium 131 mmol/L (135-145) L 12/27/23 06:12
Potassium 4.3 mmol/L (3.5-5.1) 12/27/23 06:12
Chloride 96 mmol/L (98-107) L 12/27/23 06:12
Carbon Dioxide 28 mmol/L (22-30) 12/27/23 06:12
BUN 39 mg/dl (9-20) H 12/27/23 06:12
Creatinine 3.6 mg/dL (0.7-1.3) H 12/27/23 06:12
eGFR 16.46 12/27/23 06:12
Glucose 122 mg/dl (70-99) H 12/27/23 06:12
Calcium 8.0 mg/dl (8.4-10.2) L 12/27/23 06:12
Phosphorus 6.5 mg/dl (2.5-4.5) H 12/24/23 14:11
Albumin 3.0 g/dl (3.5-5.0) L 12/24/23 14:11
Physical Exam
-
Vital Signs:
Vital Signs
Temp Pulse Resp BP Pulse Ox
98.5 F 69 18 159/71 94
12/27/23 07:00 12/27/23 09:01 12/27/23 07:00 12/27/23 09:01 12/27/23 07:00
Cardiovascular:: Regular rate and rhythm
Respiratory:: Bilateral: Coarse
Lung Excursion:: Normal
Abdomen:: Nontender and Soft
Bowel Sounds:: Normal
Extremity Edema:: None: Bilateral: (bilateral lower extremities wrapped)
Che Catheter: No
[2023-12-27 15:00] VITALS: BP 129/62
--- NOTE | 2023-12-27 15:28 | CM ---
spoke with [facility].no bed available for patient.i then spoke with balta in adms at [facility].they have a bed available tomorrow after hd.i reached out to nephrology to ask them if patiet can be dialyzed early. i asked nephrology if
they are able to put him on early hd schedule.i will let balta in adm know when transport has been arranged.also placed calpaytient to [facility] to let them know patient will be back on regular schedule at 10am [facility]..[facility] called back
to let me know they gave patients chair time away.it is now 10:50am [facility].called daughter adelita to let her know her father has been accepted at [facility] tomorrow.she is in agreement with this plan.
[2023-12-27 17:04] LABS: Glucose - Point of Care 319 mg/dl (70-99)
--- NOTE | 2023-12-27 17:33 | PTCARENOTE ---
This RN taking over care for previous RN. Assessment remains unchanged from earlier in shift, wound care provided, pt resting comfortably in bed with call parker within reach.
[2023-12-27 21:42] LABS: Glucose - Point of Care 221 mg/dl (70-99)
[2023-12-27] MEDS: LANTUS 0.0400000000000000008 UNITS SC (23:38)
[2023-12-27 23:44] VITALS: BP 168/81
[2023-12-28 06:00] VITALS: BMI 30.6
[2023-12-28 07:42] VITALS: BP 157/62
[2023-12-28 07:59] LABS: Glucose - Point of Care 193 mg/dl (70-99)
--- NOTE | 2023-12-28 08:14 | W.PN.HOSP.TC ---
Today's Communication/Plan
-
Hemodialysis today. Discharge planning in progress
Assessment / Plan
Assessment / Plan
Physical exam:
General: no acute distress and chronically ill
HEENT: Normocephalic, Atraumatic and Moist Mucous Membranes
Respiratory: Decreased breath sounds and few crackles in bases; Negative Wheezes or Rhonchi
Cardiac: Regular Rhythm and S1/S2
GI: Soft, Nontender and Nondistended, PD catheter removed
Musculoskeletal: Bilateral edema. No Clubbing, No Cyanosis
Neuro: Generalized weakness present.
Skin: necrotic ulcerated wounds seen on lower extremities
Psych: Calm
A/P:
# Necrotic black skin ulcers in lower extremities
high suspicious for calciphylaxis
Obtained calcium, phosphate, PTH--> as expected calcium low and high but product not so elevated, and PTH elevated at suspected as well.
Avoid calcium containing meds and continue Renvela
Appreciate surgery input. Status post skin biopsy on 12/24--> pathology pending (can be follow-up as outpatient)
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
c/w HD.
Pain control, adjusted dose of oxycodone.
Updated son over the phone prior
Updated RN
Discussed with daughter at bedside today on 12/27
#Constipation:
-Started on bowel regimen
-Will use of antibiotics yesterday per patient preference
# Toxic metabolic encephalopathy (weakness/confusion multifactorial secondary to end-stage renal disease/hypoglycemia in the setting of diarrhea/decreased oral intake/insulin use/diabetes mellitus type 2,/recent hospitalization):
-Monitor mental status. Adjust oxycodone dose according to renal function
-Off antibiotics. Follow up blood cultures but no growth so far.
-Hemodialysis
-Resumed Lantus but will dose further to 4u. POC not accurate ?due to PVD.
-Insulin sliding scale, Accu-Cheks. Adjust insulin as needed. POC is stabilized.
-he also was treated for possible pneumonia; PD ineffective-transition to HD; was recommended rehab but refused.
-PT OT recommends-patient agreeable for rehab.
-CT head with chronic changes . Chronic infarcts noted.
-He is interested in rehab. Mentation starting to stabilize however does wax and wane at times.
#Leukocytosis:
-In light of patient vascular access and leukocytosis, s/p ordered blood cultures on 12/14
-WBC 14.3 today
-Follow-up blood cultures negative so far
-Off antibiotics.
-Continue to monitor trend
-Peritoneal catheter removed and tip sent for culture
-CT pelvis negative for abscess
-ID on board and signed off.
# Hematuria in the setting of recent bladder tumor resection and exchange sphincter;
#Prostate/bladder cancer status post recent prostatectomy and bladder scraping with chronic Sanches catheter and artificial urinary sphincter status post explant
-Mild hematuria expected. Patient with scant urinary output. Continue to trend hemoglobin. Transfuse as needed.
-Urology has been consulted and no acute intervention.
# Mild subacute blood loss anemia due to hematuria in the setting of recent surgery
-Trend CBC transfuse as needed
# Diarrhea felt to be secondary to antibiotic use, rule out C. difficile. No BM reported here-will monitor
-No diarrhea
-BRAT diet
# Inability to manage peritoneal dialysis
# History of ESRD on peritoneal dialysis
-Nephrology continues hemodialysis
-PD catheter removed on 12/20.
-PT/OT for rehab
-Resumed sevelamer
#Anemia
-stable
-Hemoglobin 8.6 today
-Continue to monitor
#IDDM with hypogylcemia
-lantus 4u and iss. POC 138.
# Transaminitis
-Improving
-F/U outpatient
# Recent aspiration pneumonia
-Treated at [facility]
Secondary hyperparathyroidism
CAD status post CABG
Recent demand ischemia/NSTEMI
-Continue aspirin
Paroxysmal atrial fibrillation
-Continue amiodarone and asa
Combined systolic/diastolic CHF
-Continue HD
Lasix 80 mg QD, might need to reduce or stop if hypotension
Essential hypertension
-Continue clonidine, hydralazine
Hypercholesterolemia
-Continue statin, Zetia
Chronic constipation
-Continue MiraLAX
Chronic anemia
Diverticulosis
History of fatty liver
History of skin cancer
Depression
-Continue vilazodone
Cataract surgery
DNR/DNI
DVT prophylaxis-SCDs in the setting of hematuria
PT/OT- SNF.
Anticipated Discharge: Today
Subjective/Interval History
-
Date of Service: December 28, 2023
Patient denies any acute complaints but some post nasal drip.
Objective Data
-
Labs:
Laboratory Results
12/28/23
07:57
WBC Pending
Hgb Pending
Hct Pending
Plt Count Pending
Sodium Pending
Potassium Pending
Chloride Pending
Carbon Dioxide Pending
BUN Pending
Creatinine Pending
Glucose Pending
Calcium Pending
Vital Signs:
Vital Signs
Temp Pulse Resp BP Pulse Ox
97.8 F 66 18 157/62 96
12/28/23 07:42 12/28/23 07:42 12/28/23 07:42 12/28/23 07:42 12/28/23 07:42
I&O
12/27/23 12/28/23 12/29/23
06:59 06:59 06:59
Intake Total 100 / 100 1680 / 1680
Output Total 175 / 175 125 / 125
Balance -75 / -75 1555 / 1555
[2023-12-28 08:44] LABS: Blood Urea Nitrogen 56 mg/dl (9-20); Calcium 8.2 mg/dl (8.4-10.2); Carbon Dioxide 26 mmol/L (22-30); Chloride 91 mmol/L (98-107); Estimated Creatinine Clearance 13 ml/min; Glucose 184 mg/dl (70-99); Potassium 4.9 mmol/L (3.5-5.1); Sodium 130 mmol/L (135-145); eGFR 11.95
[2023-12-28 08:45] LABS: % Basophils 0.1 % (0-2); % Eosinophils 1.8 % (0-6); % Lymphocytes 8.1 % (20.5-51.1); % Monocytes 11.6 % (1.7-9.3); % Neutrophils 77.4 % (42.2-75.2); Absolute Eosinophils 0.2 10^3/uL (0-0.7); Absolute Immature Granulocytes 0.1 10^3/uL (0-0.05); Absolute Lymphocytes 1.1 10^3/uL (1.2-3.4); Absolute Monocytes 1.6 10^3/uL (0.1-0.6); Absolute Neutrophils 10.5 10^3/uL (1.4-6.5); Hematocrit 26.3 % (39.0-52.0); Hemoglobin 8.5 g/dL (13.0-18.0); Mean Corp Hgb Conc. 32.3 g/dL (33.0-37.0); Mean Corpuscular Hgb 32.9 pg (27.0-31.0); Mean Corpuscular Volume 101.9 fL (80.0-94.0); Mean Platelet Volume 11.3 fL (7.4-10.4); Nucleated Red Blood Cells % 0 % (-); Platelet Count 202 10^3/uL (130-400); Red Blood Cell Count 2.58 10^6/uL (4.70-6.10); Red Cell Dist. Width 17.9 % (11.5-14.5); White Blood Cell Count 13.6 10^3/uL (4.8-10.8)
[2023-12-28] MEDS: RETACRIT 6000 UNITS IV (09:36)
[2023-12-28] MEDS: SODIUM THIOSULFATE 250 GRAMS IV (10:26)
[2023-12-28] MEDS: LEVSIN 0.125 MG PO ×2 (10:46→15:59)
--- NOTE | 2023-12-28 11:09 | W.PN.NEPH.HD ---
Assessment
-
pt seen during HD
vitals stable
cont sodium thiosulfate with HD even out pt -informed [facility]
AVF working well
for d/c today, cont WC at [facility]
Progress Note - Hemodialysis
-
Date of Service: December 28, 2023
Duration: 30 minutes and 3 hours
Potassium Bath: 2
Calcium Bath: 2.5
Opti-Dialyzer: 160
Ultrafiltration: Other (2-2.5kg)
Blood Flow: 400
Dialysate Flow: 600
Heparin: no
EPO: 6000
--- NOTE | 2023-12-28 12:24 | W.DCSUMMARY ---
Discharge Summary
Discharge Data
Date of Admission: 12/14/23
Date of Discharge: 12/29/23
-
Pending Results: Yes
Additional Pending Results:
Skin biopsy
Hospital Course
Patient 78 years old man with multiple comorbidities who was recently hospitalized at and admitted to the hospital with generalized weakness and failure of peritoneal dialysis. Patient had a functional left upper extremity AV
fistula and nephrology was consulted and he was started on hemodialysis and kept in place during this hospital stay. Upon admission he had toxic metabolic encephalopathy that was able to clear slowly over his hospitalization. He was also evaluated
by ID due to leukocytosis and concerns for infection but his complete workup was unremarkable for any active infection and he remained afebrile and off antibiotic although his WBC remains relatively elevated but stable. Blood cultures no growth,
removal of PD catheter with cultures and no growth, CT of the abdomen with no evidence of active infection. Patient also has periods of hypoglycemia so his Lantus regimen was decreased to 4 units daily. He did well rest of hospital stay with his
blood sugars on this current regimen. He was also evaluated by urology due to his recent urological procedures but urology felt his gross hematuria was related to his recent bladder tumor resection and no intervention recommended and recommended
catheter removed with his outpatient urologist as outpatient. Course complicated with suspicion for calciphylaxis so he had a skin biopsy which we are waiting for pathology report and will be follow-up as outpatient and he has been started on
sodium thiosulfate with hemodialysis per nephrology. Otherwise, patient is hemodynamically stable, symptomatically much improved, and he is doing stable for further rehabilitation at [facility] for [facility].
Discharge duration: 42 minutes
Discharge Plan
-
Patient Disposition: [facility]/SNF
Discharge Diagnosis/Procedures: Toxic metabolic encephalopathy. Hematuria due to recent bladder tumor resection. Leukocytosis. End-stage renal disease converted to hemodialysis. Anemia. Hypoglycemia. History urinary incontinence. History of
prostate and bladder cancer status post prostatectomy and artificial urinary sphincter. Status post explant of artificial sphincter due to urethral erosion. Chronic Sanches catheter to evaluate for void trial as outpatient with urology.
Diet: Low Cholesterol and Restrict fluids to 48 oz
Activity: As tolerated
Blood Work: Please PCP to order CBC, BMP within 1 week
Specialty Instructions: Weigh Daily- Call MD for wt gain/loss 3 lbs overnight/5 lbs in 1 week
Activity Restrictions/Additional Instructions:
Wound Care Instructions
Antifungal ointment to coccyx/buttocks/perianal skin bid.
Vaseline to penis tip bid.
LE's-clean ulcers gently with saline, apply adaptic, ABD pad, secure with stockinet (not tight) daily and prn loosened dressing.
use air chair cushion to off load heels.
Pressure redistributing chair cushion (i.e. air chair cushion).
Follow up with wound clinical care manager or at wound care center call for an appointment.
Referrals:
Castillo Torres MD [Active] - in two to four weeks
Fausto Gomez MD [Family Provider] - in less than 1 week
Prescriptions:
New
hydromorphone 2 mg Tablet
2 mg PO Q6HPRN PRN (Reason: mod to severe pain) Qty: 4 0RF
Continued
ezetimibe 10 MG tablet
10 mg PO DAILY
vilazodone [Viibryd] 40 MG tablet
40 mg PO DAILY
atorvastatin 40 mg tablet
40 mg PO DAILY
furosemide 80 mg tablet
80 mg PO DAILY
ProRenal QD 400-500 mcg-unit capsule
2 cap PO DAILY
insulin aspart U-100 [Novolog U-100 Insulin aspart] 100 unit/mL Solution
0 sliding scale dose SC MEALS
Patient Comments:
09/25/2023, patient does not know the sliding scale but states that it depends on his blood sugar and what he is eating.
amiodarone 200 mg Tablet
100 mg PO DAILY
trazodone 50 mg Tablet
50 mg PO HS PRN (Reason: Sleep)
latanoprost 0.005 % Drops
1 drp BOTH EYES HS
polyethylene glycol 3350 [Miralax] 17 gram Powder In Packet
17 g PO DAILY PRN (Reason: constipation)
clonidine HCl 0.3 mg Tablet
0.3 mg PO BID
cholecalciferol (vitamin D3) 125 mcg (5,000 unit) Tablet
125 mcg PO QPM
hydralazine 50 mg tablet
50 mg PO DAILY
acetaminophen 325 mg Tablet
650 mg PO Q4HPRN PRN (Reason: mild pain) Qty: 0 0RF
aspirin 81 mg Tablet,Delayed Release (Dr/Ec)
81 mg PO DAILY
Patient Comments:
09/25/2023, patient states that he has been taking this medication since he's been off of his blood thinners.
sevelamer carbonate 800 mg Tablet
2,400 mg PO TID PRN (Reason: snacks)
ipratropium bromide 21 mcg (0.03 %) Rhodell,Non-Aerosol
2 spray INTRANASAL BID
coenzyme Q10 [CoQ-10] 100 mg Capsule
100 mg PO QPM
sevelamer carbonate 800 mg Tablet
2,400 mg PO MEALS
Changed
insulin glargine [Lantus Solostar U-100 Insulin] 100 unit/mL (3 mL) Insulin Pen
4 unit SC HS Qty: 0 0RF
Discontinued
oxycodone 5 mg tablet
5 mg PO Q6HPRN PRN (Reason: breakthrough/severe pain)
Patient Comments:
12/14/2023: last filled 11/08/23, 60 tabs for 15 days from [facility][id number]
Discharge Orders:
Discharge Patient (As Directed); Ordered 12/28/23
Ordered By: Shree Gallegos
Discharge Date and Time
Discharge Date/Time: 12/29/23 11:33
[2023-12-28] MEDS: MIRALAX 17 GRAMS PO (12:32)
[2023-12-28] MEDS: COLACE 100 MG PO ×2 (12:32→19:52)
[2023-12-28] MEDS: CATAPRES 0.299999999999999989 MG PO ×2 (12:32→19:51)
[2023-12-28] MEDS: ZETIA 10 MG PO (12:32)
[2023-12-28] MEDS: NEPHROCAP 1 CAPSULE PO (12:32)
[2023-12-28] MEDS: LASIX 80 MG PO (12:33)
[2023-12-28] MEDS: PACERONE 100 MG PO (12:33)
[2023-12-28] MEDS: APRESOLINE 50 MG PO (12:33)
[2023-12-28] MEDS: ASPIR LOW (ENTERIC COATED) 81 MG PO (12:33)
[2023-12-28] MEDS: LIPITOR 40 MG PO (12:34)
[2023-12-28] MEDS: TESSALON PERLES 100 MG PO ×2 (12:34→15:59)
[2023-12-28] MEDS: NON-FORMULARY ITEM 40 MG PO (12:35)
[2023-12-28] MEDS: RENVELA PO (12:36)
[2023-12-28] MEDS: RENVELA 2400 MG PO ×2 (12:36→17:27)
[2023-12-28] MEDS: NOVOLOG FLEXPEN-LOW RESISTANCE SC (13:57)
[2023-12-28] MEDS: ANTIFUNGAL CLEAR TOPICAL (14:04)
[2023-12-28 14:12] LABS: Glucose - Point of Care 362 mg/dl (70-99)
--- NOTE | 2023-12-28 15:07 | CM ---
Placed a call to admissions at [facility] and call was answered by [facility] in admissions who confirmed bed availability for patient. #For report [phone] and fax# [phone]
Medical necessity and transfer sheet completed.
Plan: Case management will continue to follow and assist with discharge planning. [facility].
[2023-12-28] MEDS: NOVOLOG FLEXPEN-LOW RESISTANCE 5 UNITS SC (15:41)
[2023-12-28 15:52] VITALS: BP 151/66
[2023-12-28] MEDS: TYLENOL 650 MG PO (15:58)
[2023-12-28 16:53] LABS: Glucose - Point of Care 313 mg/dl (70-99)
--- NOTE | 2023-12-28 17:18 | PTCARENOTE ---
Report called to [facility] at [facility]. Pt discharge vitals are within the 4 hours prior to expected discharge/pickup at 1845 today.
[2023-12-28] MEDS: NOVOLOG FLEXPEN-LOW RESISTANCE 4 UNITS SC (17:25)
[2023-12-28] MEDS: ANTIFUNGAL CLEAR 1 APPLIC TOPICAL (19:52)
[2023-12-28 21:01] LABS: Glucose - Point of Care 200 mg/dl (70-99)
[2023-12-28] MEDS: LANTUS 0.0400000000000000008 UNITS SC (22:22)
[2023-12-28] MEDS: XALATAN OPHTHALMIC SOLUTION 1 DROP BOTH EYES (22:23)
[2023-12-28 23:10] VITALS: BP 136/60
[2023-12-29] MEDS: TESSALON PERLES 100 MG PO (00:41)
[2023-12-29] MEDS: LEVSIN 0.125 MG PO (03:51)
[2023-12-29 06:00] VITALS: BMI 30.5
[2023-12-29] MEDS: ROBITUSSIN 100 MG PO (06:35)
[2023-12-29 07:43] VITALS: BP 143/69
[2023-12-29 08:20] LABS: Glucose - Point of Care 248 mg/dl (70-99)
[2023-12-29] MEDS: RENVELA 2400 MG PO (08:31)
[2023-12-29] MEDS: ZETIA 10 MG PO (08:31)
[2023-12-29] MEDS: MIRALAX 17 GRAMS PO (08:31)
[2023-12-29] MEDS: LASIX 80 MG PO (08:32)
[2023-12-29] MEDS: PACERONE 100 MG PO (08:32)
[2023-12-29] MEDS: LIPITOR 40 MG PO (08:32)
[2023-12-29] MEDS: ASPIR LOW (ENTERIC COATED) 81 MG PO (08:32)
[2023-12-29] MEDS: CATAPRES 0.299999999999999989 MG PO (08:32)
[2023-12-29] MEDS: COLACE 100 MG PO (08:32)
[2023-12-29] MEDS: APRESOLINE 50 MG PO (08:32)
[2023-12-29] MEDS: NEPHROCAP 1 CAPSULE PO (08:32)
[2023-12-29] MEDS: NOVOLOG FLEXPEN-LOW RESISTANCE 2 UNITS SC (08:33)
[2023-12-29] MEDS: NON-FORMULARY ITEM 40 MG PO (08:33)
[2023-12-29] MEDS: ANTIFUNGAL CLEAR 1 APPLIC TOPICAL (08:40)
--- NOTE | 2023-12-29 08:52 | W.PN.HOSP.TC ---
Today's Communication/Plan
-
Discharge planning today.
Assessment / Plan
Assessment / Plan
Physical exam:
General: no acute distress and chronically ill
HEENT: Normocephalic, Atraumatic and Moist Mucous Membranes
Respiratory: Decreased breath sounds and few crackles in bases; Negative Wheezes or Rhonchi
Cardiac: Regular Rhythm and S1/S2
GI: Soft, Nontender and Nondistended, PD catheter removed
Musculoskeletal: Bilateral edema. No Clubbing, No Cyanosis
Neuro: Generalized weakness present.
Skin: necrotic ulcerated wounds seen on lower extremities
Psych: Calm
A/P:
# Necrotic black skin ulcers in lower extremities
high suspicious for calciphylaxis
Obtained calcium, phosphate, PTH--> as expected calcium low and high but product not so elevated, and PTH elevated at suspected as well.
Avoid calcium containing meds and continue Renvela
Appreciate surgery input. Status post skin biopsy on 12/24--> pathology pending (can be follow-up as outpatient)
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
c/w HD.
Pain control, adjusted dose of oxycodone.
Updated son over the phone prior
Updated RN
Discussed with daughter at bedside on 12/27
Could not go to rehab yesterday but able to go today.
#Constipation:
-Started on bowel regimen
-Will use of antibiotics yesterday per patient preference
# Toxic metabolic encephalopathy (weakness/confusion multifactorial secondary to end-stage renal disease/hypoglycemia in the setting of diarrhea/decreased oral intake/insulin use/diabetes mellitus type 2,/recent hospitalization):
-Monitor mental status. Adjust oxycodone dose according to renal function
-Off antibiotics. Follow up blood cultures but no growth so far.
-Hemodialysis
-Resumed Lantus but will dose further to 4u. POC not accurate ?due to PVD.
-Insulin sliding scale, Accu-Cheks. Adjust insulin as needed. POC is stabilized.
-he also was treated for possible pneumonia; PD ineffective-transition to HD; was recommended rehab but refused.
-PT OT recommends-patient agreeable for rehab.
-CT head with chronic changes . Chronic infarcts noted.
-He is interested in rehab. Mentation starting to stabilize however does wax and wane at times.
#Leukocytosis:
-In light of patient vascular access and leukocytosis, s/p ordered blood cultures on 12/14
-WBC 14.3 yesterday
-Follow-up blood cultures negative so far
-Off antibiotics.
-Continue to monitor trend
-Peritoneal catheter removed and tip sent for culture
-CT pelvis negative for abscess
-ID on board and signed off.
# Hematuria in the setting of recent bladder tumor resection and exchange sphincter;
#Prostate/bladder cancer status post recent prostatectomy and bladder scraping with chronic Sanches catheter and artificial urinary sphincter status post explant
-Mild hematuria expected. Patient with scant urinary output. Continue to trend hemoglobin. Transfuse as needed.
-Urology has been consulted and no acute intervention.
# Mild subacute blood loss anemia due to hematuria in the setting of recent surgery
-Trend CBC transfuse as needed
# Diarrhea felt to be secondary to antibiotic use, rule out C. difficile. No BM reported here-will monitor
-No diarrhea
-BRAT diet
# Inability to manage peritoneal dialysis
# History of ESRD on peritoneal dialysis
-Nephrology continues hemodialysis
-PD catheter removed on 12/20.
-PT/OT for rehab
-Resumed sevelamer
#Anemia
-stable
-Hemoglobin 8.6 today
-Continue to monitor
#IDDM with hypogylcemia
-lantus 4u and iss. POC 138.
# Transaminitis
-Improving
-F/U outpatient
# Recent aspiration pneumonia
-Treated at [facility]
Secondary hyperparathyroidism
CAD status post CABG
Recent demand ischemia/NSTEMI
-Continue aspirin
Paroxysmal atrial fibrillation
-Continue amiodarone and asa
Combined systolic/diastolic CHF
-Continue HD
Lasix 80 mg QD, might need to reduce or stop if hypotension
Essential hypertension
-Continue clonidine, hydralazine
Hypercholesterolemia
-Continue statin, Zetia
Chronic constipation
-Continue MiraLAX
Chronic anemia
Diverticulosis
History of fatty liver
History of skin cancer
Depression
-Continue vilazodone
Cataract surgery
DNR/DNI
DVT prophylaxis-SCDs in the setting of hematuria
PT/OT- SNF.
Anticipated Discharge: Today
Subjective/Interval History
-
Date of Service: December 29, 2023
Patient seen and examined. No new complaints
Objective Data
-
Vital Signs:
Vital Signs
Temp Pulse Resp BP Pulse Ox
98.1 F 72 17 143/69 97
12/29/23 07:43 12/29/23 07:43 12/29/23 07:43 12/29/23 07:43 12/29/23 07:43
I&O
12/28/23 12/29/23 12/30/23
06:59 06:59 06:59
Intake Total 1680 / 1680 1140 / 1140
Output Total 125 / 125 100 / 100
Balance 1555 / 1555 1040 / 1040
== END 2023-12-29 11:33 | DRG 981 ==
LOC: 3 WEST ACU 17:38
PROVIDERS: Hospitalist; Internal Medicine; Specialist; Student in an Organized Health Care Education/Training Program; ADMITTING PHYSICIAN Hospitalist; ATTENDING PHYSICIAN Hospitalist; CONSULT PHYSICIAN Internal Medicine Infectious Disease; CONSULT PHYSICIAN Specialist; CONSULT PHYSICIAN Surgery; CONSULT PHYSICIAN Urology; EMERGENCY PHYSICIAN Emergency Medicine; FAMILY PHYSICIAN Internal Medicine Geriatric Medicine
PROC: 5A1D70Z Performance of Urinary Filtration, Intermittent, Less than 6 Hours Per Day (ICD-10-PCS; 2023-12-15)
PROC: 0WPG03Z Removal of Infusion Device from Peritoneal Cavity, Open Approach (ICD-10-PCS; 2023-12-21)
DX: G92.8 Other toxic encephalopathy (principal); N18.6 End stage renal disease; D62 Acute posthemorrhagic anemia; I13.2 Hypertensive heart and chronic kidney disease with heart failure and with stage 5 chronic kidney disease, or end stage renal disease; I50.42 Chronic combined systolic (congestive) and diastolic (congestive) heart failure; N25.81 Secondary hyperparathyroidism of renal origin; E11.22 Type 2 diabetes mellitus with diabetic chronic kidney disease; E11.649 Type 2 diabetes mellitus with hypoglycemia without coma; I25.10 Atherosclerotic heart disease of native coronary artery without angina pectoris; R19.7 Diarrhea, unspecified; E83.59 Other disorders of calcium metabolism; Z66 Do not resuscitate; R31.0 Gross hematuria; Z79.4 Long term (current) use of insulin; Z87.891 Personal history of nicotine dependence; Z79.01 Long term (current) use of anticoagulants; Z79.82 Long term (current) use of aspirin; Z99.2 Dependence on renal dialysis; Z85.46 Personal history of malignant neoplasm of prostate; Z85.51 Personal history of malignant neoplasm of bladder
CPT/HCPCS: 88305; 70450; 71045; 74178; 80048; 80051; 80053; 82248; 82962; 83036; 83735; 83970; 84100; 85025; 85027; 85610; 85730; 87040; 87084; 93922; 93925; 97116; 97163; 97167; 97530; 97535; 99285; G0257; P9047; Q5106; Q9967

== ENCOUNTER 2023-12-31 00:05 | Inpatient (IN) | payer MEDICARE, OTHER, SELFPAY ==
[2023-12-30 20:17] VITALS: BP 176/66
[2023-12-30 21:00] VITALS: BP 165/70
[2023-12-30 21:01] VITALS: BMI 29.3
--- NOTE | 2023-12-30 21:09 | ED.GENMED ---
History of Present Illness
General
Chief Complaint: Male Genito-Urinary Symptoms
Source: patient and records
Exam Limitations: none
Time Seen by Provider: 12/30/23 20:31
Travel History
Have you had any contact with someone who has COVID-19?: No
Do you have any symptoms of coronavirus? Fever > 100 degrees, chills, cough, shortness of breath, sore throat, loss of taste or smell, muscle aches, or headache?: No
History of Present Illness
History of Present Illness:
78-year-old male presents primarily with ongoing hematuria and bleeding around his catheter. Intermittent episodes of lower abdominal pressure. Also complains of an ongoing cough for 10 days.
Past History
Past History
ED Past Medical History: CAD, Cancer (Protate and Bladder), HTN, Hypercholesterolemia, NIDDM, Renal failure and Other (chronic constipation)
ED Past Surgical History: Cardiac (CABG) and Urological (Prostatectomy with bladder scraping)
Social History
Tobacco: Former smoker
Alcohol: Daily (Whisky)
Personal:
Living: with family
Employment: Retired
Review of Systems
Review of Systems
All Other Systems: Not applicable
Constitutional: Denies fever
Respiratory: Denies trouble breathing
ABD/GI: Denies vomiting
Phy Exam
Physical Exam
Physical Exam:
GENERAL: Alert and oriented. Elderly and frail
EYE: Orbits normal.
NECK: Supple
CARDIAC: Regular rate and rhythm without any obvious murmurs.
LUNGS: Clear breath sounds,normal
ABDOMEN: Soft, without focal tenderness or distention
: Catheter in place. 14 Spanish. Moderate hematuria in the bag. Questionable flow. Minimal urine in the catheter. No bleeding around the catheter at this time. Hypospadias.
NEUROLOGICAL: Alert and oriented , grossly non-focal
SKIN: Warm and dry
PSYCH: Normal and appropriate interaction.
Course
Orders/Labs/Results
Orders:
Orders
12/30/23 20:42
IV Insert/Care/Rem.- Treatment PRN
12/30/23 20:43
CR Chest - 2 Views Urgent
Comment:
Reason For Exam: cough
12/30/23 21:07
Basic Metabolic Panel Urgent
Complete Blood Count/With Diff Urgent
12/30/23 22:50
Oxycodone/Acetaminophen [Percocet 5/325] 1 tablet PO NOW STA
12/30/23 22:57
Cefepime HCl [Maxipime] 2,000 mg IV NOW STA
12/30/23 23:09
Sterile Water [Sterile Water For Injection] 10 ml .ROUTE .[facility]
12/30/23 23:32
NEPHROLOGY CONSULT Routine
Consulting Provider: Lacie Cason
Was physician already notified: No
Reason for consult: esrd dialysis
UROLOGY CONSULT Routine
Consulting Provider: Moisés Pagan
Was physician already notified: Yes
Comment: ongoing hemturia
12/30/23 23:33
Admit/Transfer Patient As Directed
Co-Sign Provider:
Level of Care: Inpatient admission
Assign to:: Medical/Surgical
Physician / Group: colleen dickerson
Diagnosis: recurrent hematuria chronic che, esrd dialysis
Reason for Hospitalization: recurrent hematuria chronic che, esrd dialysis
Expected length of stay greater than two midnights?: Yes
ELOS- Estimated Length of Stay in days: 4
I certify the patient meets the requirements for IP care: Yes
Code Status As Directed
Resuscitation Status: Do not resuscitate
Reached after discussion with pt or family/Healthcare POA: Yes
Based on pt advanced directive or healthcare POA form: Yes
Decision communicated with: per pt
Consult Notification Routine
Specialty to Notify: Nephrology
DNR Bracelet Application ONCE
12/30/23 23:44
Procalcitonin Urgent
PCT Algorithmm Indication: Sepsis
Blood Culture Q30M
LIANET Source: Blood/Venous
Specimen Description:
12/30/23 23:47
Lactate Level [Lactic Acid] Urgent
Blood Culture Q30M
LIANET Source: Blood/Venous
Specimen Description:
Abnormal Lab Results
12/30/23 12/30/23 12/30/23
21:07 23:44 23:47
WBC 15.4 H 10^3/uL
(4.8-10.8)
RBC 2.59 L 10^6/uL
(4.70-6.10)
Hgb 8.6 L g/dL
(13.0-18.0)
Hct 25.9 L %
(39.0-52.0)
MCV 100.0 H fL
(80.0-94.0)
MCH 33.2 H pg
(27.0-31.0)
RDW 17.6 H %
(11.5-14.5)
MPV 11.2 H fL
(7.4-10.4)
Abs Immat Gran (auto) 0.1 H 10^3/uL
(0-0.05)
Absolute Neuts (auto) 12.5 H 10^3/uL
(1.4-6.5)
Absolute Lymphs (auto) 0.8 L 10^3/uL
(1.2-3.4)
Absolute Monos (auto) 1.7 H 10^3/uL
(0.1-0.6)
Immature Gran % 0.8 H %
(0-0.5)
Neutrophils % 81.5 H %
(42.2-75.2)
Lymphocytes % 5.4 L %
(20.5-51.1)
Monocytes % 10.9 H %
(1.7-9.3)
Sodium 127 L mmol/L
(135-145)
Chloride 91 L mmol/L
(98-107)
BUN 59 H mg/dl
(9-20)
Creatinine 5.3 H* mg/dL
(0.7-1.3)
Glucose 252 H mg/dl
(70-99)
Lactic Acid 2.7 H mmol/L
(0.7-2.0)
Calcium 7.9 L mg/dl
(8.4-10.2)
Procalcitonin 0.74 H ng/ml
(0.0-0.25)
12/30/23 21:07
12/30/23 21:07
Vital Signs
Initial and Last Documented VS:
Initial Vital Signs
Temp Pulse Resp BP Pulse Ox
98.2 F 87 20 176/66 95
12/30/23 20:17 12/30/23 20:17 12/30/23 20:17 12/30/23 20:17 12/30/23 20:17
Last Documented Vital Signs
Temp Pulse Resp BP Pulse Ox
98.2 F 93 20 151/69 95
12/30/23 20:17 12/31/23 00:00 12/31/23 00:00 12/31/23 00:00 12/30/23 20:17
*Radiology
Radiology exam reviewed: preliminary read by ED provider (Left lower lobe pneumonia) and radiology read reviewed (Left lower lobe pneumonia)
*Pulse Oximetry
Patient hypoxic: no
*Critical Care Note
Total Time (30-74mins, 75-104mins- exclusive of procedures): Not Applicable
Data Reviewed
Review of Other/Old Records Reveals: Labs, Records, Progress Notes and Discharge Summary
Update Note
Update Note:
2100... Discussed with urology. Reluctant to have his take the catheter out. Prefer to leave it in and have him follow-up tomorrow. Did asked to check for bladder scan. Also tried to contact his primary urologist at [place]
I discussed this case with patient's urologist and our urology. Do not remove the catheter. Was carefully irrigated as per their recommendation. I did get a large clot however no significant urine output. Despite that post irrigation there was
some urine flow although minimal. Patient continued to have pain continue to have some bleeding around the urethra also noted to have a left lower lobe pneumonia. Clinically was uncomfortable. Warrants inpatient management.
ED Attending Note
-
Portions of this chart may have been created with voice recognition software.� Occasional wrong word or��sound alike� substitutions may have occurred due to the inherent limitations of voice recognition software.
Discharge Plan
Departure
Patient Disposition: Admit
Date of Disposition: 12/30/23
Time of Disposition: 22:59
Presentation/result/management discussed w/ accepting MD/DO: Urology
Discharge Problem:
Gross hematuria, Urinary catheter, Left lower lobe pneumonia, History of renal failure, Hyponatremia
Interventions
Interventions:
*Risk Screen - Suicide Last Done: 12/30/23 20:17
*General Assessment Last Done: 12/30/23 20:17
*Neglect/Abuse Screening Last Done: 12/30/23 20:17
ED- Fall Risk Assessment Last Done: 12/31/23 00:29
*ED COVID-19 Vaccine History Last Done: 12/30/23 20:33
ED-Male Genitourinary Assessment Last Done: 12/30/23 21:20
[2023-12-30 21:19] LABS: % Basophils 0.2 % (0-2); % Eosinophils 1.2 % (0-6); % Immature Granulocytes 0.8 % (0-0.5); % Lymphocytes 5.4 % (20.5-51.1); % Monocytes 10.9 % (1.7-9.3); % Neutrophils 81.5 % (42.2-75.2); Absolute Eosinophils 0.2 10^3/uL (0-0.7); Absolute Immature Granulocytes 0.1 10^3/uL (0-0.05); Absolute Lymphocytes 0.8 10^3/uL (1.2-3.4); Absolute Monocytes 1.7 10^3/uL (0.1-0.6); Absolute Neutrophils 12.5 10^3/uL (1.4-6.5); Hematocrit 25.9 % (39.0-52.0); Hemoglobin 8.6 g/dL (13.0-18.0); Mean Corp Hgb Conc. 33.2 g/dL (33.0-37.0); Mean Corpuscular Hgb 33.2 pg (27.0-31.0); Mean Platelet Volume 11.2 fL (7.4-10.4); Nucleated Red Blood Cells % 0 % (-); Platelet Count 250 10^3/uL (130-400); Red Blood Cell Count 2.59 10^6/uL (4.70-6.10); Red Cell Dist. Width 17.6 % (11.5-14.5); White Blood Cell Count 15.4 10^3/uL (4.8-10.8)
--- NOTE | 2023-12-30 21:27 | EDRN ---
Scant amount blood at urethra opening. Che catheter pulling on pt's penis because it was not secured in stat-lock properly. This RN secured che in stat-lock so it no longer pulls on pt's penis. Pt has bloody drainage on gown he arrived
wearing and declines new gown. Chux pad placed under pt's penis for bloody drainage.
[2023-12-30 21:37] LABS: Blood Urea Nitrogen 59 mg/dl (9-20); Calcium 7.9 mg/dl (8.4-10.2); Carbon Dioxide 27 mmol/L (22-30); Chloride 91 mmol/L (98-107); Estimated Creatinine Clearance 11 ml/min; Glucose 252 mg/dl (70-99); Potassium 4.2 mmol/L (3.5-5.1); Sodium 127 mmol/L (135-145); eGFR 10.35
[2023-12-30 22:00] VITALS: BP 151/98
--- NOTE | 2023-12-30 23:09 | HPS.HSE ---
Addendum entered and electronically signed by Alton Mejia MD 12/31/23 14:23:
Off note; My original H & P addendum last night was loss. I am in touch with [facility].
Added addendum for the time being:
78F�DC'd yesterday from to [facility]�with indwelling FC for persistent hematuria s/p�post prostatectomy and artificial urinary sphincter.� S/p�explant of artificial� �sphincter due to urethral erosion.��ESRD�recently switch to�HD(MWF)�in place of PD
since last�admission.�Returned to ER from [facility] due to�worsening gross�hematuria.�Good urine output. Avoid removal of F Cath per urologist. Held ASA for now. HX CAD. Admission CXR suggest�LLL PNA�and known on last admission. IV�CFP. Pending PCT.�IP
MS. Renal consult.�Urology consulted.�
�
Original Note:
Family Physician
-
Family Physician: Millie Smith
Chief Complaint
-
Ongoing hematuria
History of Present Illness
78-year-old male complaining of ongoing hematuria with bleeding around his Che catheter site and lower abdominal pressure. The patient reports increased bleeding into Che bag today at rehab. He denies fever, chills, chest pain, palpitations,
shortness of breath, nausea vomiting, diarrhea. He was just admitted on 12/13 - 12/29/2023 has a history of bladder tumor with resection with hematuria evaluated by urology which was stated to be expected secondary to recent urological procedure He
was admitted for multiple comorbidities including TME leukocytosis with unremarkable lab work for acute infection negative blood cultures removal of PD catheter on 12/21/[address] abdomen no active infection. He also has had periods of
hypoglycemia his Lantus was decreased to 4 units daily. He had suspicion for calciphylaxis and had skin biopsy which is awaiting pathology has been started on sodium thiosulfate with hemodialysis per nephrology he was discharged to group home
for rehab he has a left AV fistula where hemodialysis is being administered through.
Medical History
Past Medical History
Past Medical History: Reports Other (ESRD on peritoneal dialysis, secondary hyperparathyroidism, CAD status post CABG, paroxysmal atrial fibrillation on Eliquis, CHF, hypertension, prostate/bladder cancer status post prostatectomy and bladder
scraping, hypertension, hypercholesteremia, diabetes, chronic constipation, chronic anemia, hy)
Past Surgical History: Reports Other (Cardiac (CABG) and Urological (Prostatectomy with bladder scraping))
Social History
Tobacco: Former Smoker
Alcohol: Former
Drug: None
Family History
Family History: Not pertinent
Allergies / Home Medications
Allergies reflects when Allergies were last updated in [employer].
Home Medications with original date entered in [employer] [facility]
Allergy/Medication List:
Allergies
Allergy/AdvReac Type Severity Reaction Status Date / Time
amlodipine Allergy edema Verified 10/12/23 05:04
Home Medications
ezetimibe 10 mg tablet 10 mg PO DAILY High cholesterol 05/11/20
vilazodone 40 mg tablet (Viibryd) 40 mg PO DAILY Depression 05/11/20
atorvastatin 40 mg tablet 40 mg PO DAILY High cholesterol 05/18/22
furosemide 80 mg tablet 80 mg PO DAILY Fluid retention/Swelling 05/18/22
mv,Ec-qvc-JE-[id number]-[id number]-ahh-[id number]-ilmq oil 400 mcg-500 unit capsule (ProRenal QD) 2 cap PO DAILY Supplement 05/18/22
coenzyme Q10 100 mg capsule (CoQ-10) 100 mg PO QPM Supplement 08/04/22
ipratropium bromide 21 mcg (0.03 %) nasal spray 2 spray intranasal BID Allergies 08/04/22
sevelamer carbonate 800 mg tablet 2,400 mg PO MEALS Kidney Disease 08/04/22
insulin aspart U-100 100 unit/mL subcutaneous solution (Novolog U-100 Insulin aspart) 0 sliding scale dose SC MEALS Diabetes 08/17/22
amiodarone 200 mg tablet 100 mg PO DAILY Arrhythmia 02/27/23
trazodone 50 mg tablet 50 mg PO HS PRN Sleep 04/06/23
cholecalciferol (vitamin D3) 125 mcg (5,000 unit) tablet 125 mcg PO QPM Supplement 06/15/23
clonidine HCl 0.3 mg tablet 0.3 mg PO BID Blood Pressure 06/15/23
hydralazine 50 mg tablet 50 mg PO DAILY Blood Pressure 06/15/23
latanoprost 0.005 % eye drops 1 drp BOTH EYES HS Eye Condition 06/15/23
polyethylene glycol 3350 17 gram oral powder packet (Miralax) 17 g PO DAILY PRN constipation 06/15/23
acetaminophen 325 mg tablet 650 mg PO Q4HPRN PRN mild pain #0 tabs 06/17/23
aspirin 81 mg tablet,delayed release 81 mg PO DAILY Blood Clot Prevention/Tx 09/25/23
insulin glargine 100 unit/mL (3 mL) subcutaneous pen (Lantus Solostar U-100 Insulin) 16 unit SC HS Diabetes 09/25/23
oxycodone 5 mg tablet 5 mg PO Q6HPRN PRN breakthrough/severe pain 09/25/23
sevelamer carbonate 800 mg tablet 2,400 mg PO TID PRN snacks 09/25/23
Review of Systems
-
History Source: Patient and Other (rehab)
A 12 point ROS was completed and negative except as noted: Yes
Constitutional: Denies Fever or Fatigue
EENT: Denies Tearing or Sore Throat
Respiratory: Denies Cough or Trouble Breathing
Cardiac: Denies Chest Pain, Diaphoresis, Palpitations or Syncope
Abdomen/GI: Reports Abdominal Pain (suprapubic ); Denies Nausea, Vomiting or Diarrhea
: Reports Che (hematuria)
Musculoskeletal: Denies Joint Pain or Edema
Skin: Denies Itching or Rash
Neurological: Denies Dizzy or Headache
Endocrine: Reports No Symptoms
Hematologic/Lymphatic: Reports No Symptoms
Psych: Reports Calm
Physical Exam
Vital Signs
Vital Signs
Temp Pulse Resp BP Pulse Ox
98.2 F 76 18 151/98 95
12/30/23 20:17 12/30/23 22:00 12/30/23 22:00 12/30/23 22:00 12/30/23 20:17
Physical Exam
General: Comfortable and Conversant; No Fever or Chills
HEENT: NormoCephalic, Anicteric, Moist mucous membranes, PERRLA, Pisek Conjunctivae and No Ptosis
Respiratory: Clear; No Wheezes, Rales or Rhonchi
Cardiac: S1/S2 and Regular Rhythm; No Murmur, Rub, Gallop or Peripheral Edema
Breast: Deferred by me
GI: Soft, Non Tender, Non Distended, Normal Bowel Sounds and No Hepatosplenomegaly
Rectal: Deferred by Provider
Genito-urinary: Che (Impression/plan: Observation MedSurg #Recurrent hematuria in setting of recent bladder biopsies recent � bladder tumor resection and exchange sphincter; #Prostate/bladder cancer status post recent prostatectomy and bladder
scraping with chronic Che catheter and artificial urinary sphincter statu)
Musculoskeletal: No Clubbing, No Cyanosis and Other (Bilateral legs with dressings intact)
Skin: Warm, Dry, IV/Catheter Site (ARNAV av fistula) and Other (Bilateral legs with dressings intact)
Neuro: AO x 3, No Motor Deficits, Nonfocal/grossly intact, Cranial Nerves Intact and No Sensory Deficits; No Slurred Speech, Facial Droop or Tremors
Psych: Calm
Laboratory Results
-
12/30/23 21:07
12/30/23 21:07
Impression/Plan
-
Impression/plan:
Inpatient MedSurg
#Recurrent hematuria in setting of recent bladder biopsies recent � bladder tumor resection and exchange sphincter
#Prostate/bladder cancer status post recent prostatectomy and bladder scraping with chronic Che catheter and artificial urinary sphincter status post explant
-Mild hematuria expected-Per recent evaluation by urology with no intervention at that time indicated on 12/24/2023
Hgb 8.6 stable
-Hold ASA
-Consult urology- MAde aware by Er , leave che cath in monitor urine output
-IV cefepime
-check Pro-Arben
-
# Acute on chronic leukocytosis recent aspiration pneumonia
-Treated at [facility] recently
WBC 15.4> 13.6
-Had recent blood cultures x 2, PD catheter culture CT abdomen all negative
-Will give empiric IV cefepime
CXR: Moderate left lower lobe pneumonia. Previous CABG surgery. Chronic superior endplate fracture L1. Mild cardiomegaly
#Chronic hyponatremia
NA 127
Follow BMP
# Inability to manage peritoneal dialysis
# History of ESRD on peritoneal dialysis Sunday
-PD catheter removed on 12/20.
Current dialysis through left upper arm fistula
-PT/OT for rehab
-Resumed sevelamer
-Consult nephro for dialysis
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
Obtained calcium, phosphate, PTH--> as expected calcium low and high but product not so elevated, and PTH elevated at suspected as well.
Avoid calcium containing meds and continue Renvela
-Status post skin biopsy on 12/24--> pathology pending (can be follow-up as outpatient)
- sodium thiosulfate to be given with HD
# Recent toxic metabolic encephalopathy (weakness/confusion multifactorial secondary to end-stage renal disease/hypoglycemia in the setting of diarrhea/decreased oral intake/insulin use/diabetes mellitus type 2,/recent hospitalization): Resolved
-Continue Lantus 4 units
#IDDM with hx hypogylcemia
-lantus 4u and iss.�
# Transaminitis recent improving
Followed outpatient
#Secondary hyperparathyroidism
#CAD status post CABG
#Recent demand ischemia/NSTEMI
-HOLD aspirin
#Paroxysmal atrial fibrillation
-Continue amiodarone and asa
#Combined systolic/diastolic CHF
-Continue HD
-Lasix 80 mg QD, might need to reduce or stop if hypotension
#Essential hypertension
-Continue clonidine, hydralazine
#Hypercholesterolemia
-Continue statin, Zetia
#Chronic constipation
-Continue MiraLAX
#Chronic anemia
#Diverticulosis
#History of fatty liver
#History of skin cancer
#Depression
-Continue vilazodone
#Cataract surgery
DVT prophylaxis-SCDs in the setting of hematuria
DNR/DNI
[2023-12-30] MEDS: PERCOCET 5/325 1 TABLET PO (23:11)
--- NOTE | 2023-12-30 23:32 | EDRN ---
Pt incontinent soft brown stool. Perineal care provided. Pt repositions self on L and R sides. Linen and gown changed. Diaper placed underneath pt as well as chux pads. Sanches catheter was again not in stat lock properly, placed in it properly
so it does not pull on pt's penis. Pt then pulled on the catheter himself - instructed pt to not pull the catheter again. Blood oozing from urethra.
[2023-12-30] MEDS: MAXIPIME 2000 MG IV (23:49)
[2023-12-31] VITALS (7 sets, daily range): BP systolic 131–151; BP diastolic 59–89; PULSE 86; O2SAT 95–97; BMI 29.1
[2023-12-31 00:30] LABS: Procalcitonin 0.74 ng/ml (0.0-0.25)
[2023-12-31 00:30] LABS: Lactic Acid 2.7 mmol/L (0.7-2.0)
--- NOTE | 2023-12-31 01:20 | PTCARENOTE ---
Pt was received from ED at 01:14. Pt is AAOx3, VSS. Pt was pulled over to the unit bed. Chronic Sanches in place, small amount of blood noted around the catheter. Bloody urine, no clots. Pt complaining of painful bladder spasms, medicated with PRN
Dilaudid. Will keep monitoring.
[2023-12-31 01:27] LABS: Glucose - Point of Care 257 mg/dl (70-99)
[2023-12-31] MEDS: DILAUDID 0.5 MG IV ×2 (02:43→04:25)
[2023-12-31] MEDS: VESICARE 5 MG PO (04:28)
--- NOTE | 2023-12-31 04:30 | PTCARENOTE ---
Pt continues to complain of bladder spasms after getting the fist dose of PRN Dilaudid. JOEY Land notified. Extra stat dose of 0.5mg Dilaudid and 5mg of PO Vesicare ordered for the pt. Pt feels comfortable and is able to fall asleep.
[2023-12-31 07:17] LABS: Glucose - Point of Care 214 mg/dl (70-99)
[2023-12-31 08:32] LABS: ALT (SGPT) 46 U/L (0-50); AST (SGOT) 50 U/L (17-59); Albumin 3.5 g/dl (3.5-5.0); Alkaline Phosphatase 130 U/L (38-126); Blood Urea Nitrogen 68 mg/dl (9-20); Calcium 8.4 mg/dl (8.4-10.2); Carbon Dioxide 25 mmol/L (22-30); Chloride 89 mmol/L (98-107); Estimated Creatinine Clearance 9 ml/min; Glucose 189 mg/dl (70-99); Potassium 4.9 mmol/L (3.5-5.1); Sodium 132 mmol/L (135-145); Total Bilirubin 0.8 mg/dl (0.2-1.3); Total Protein 6.2 g/dl (6.3-8.2); eGFR 8.92
[2023-12-31 08:47] LABS: % Basophils 0.2 % (0-2); % Eosinophils 0.2 % (0-6); % Immature Granulocytes 0.9 % (0-0.5); % Lymphocytes 6.9 % (20.5-51.1); % Monocytes 9.2 % (1.7-9.3); % Neutrophils 82.6 % (42.2-75.2); Absolute Immature Granulocytes 0.2 10^3/uL (0-0.05); Absolute Lymphocytes 1.3 10^3/uL (1.2-3.4); Absolute Monocytes 1.7 10^3/uL (0.1-0.6); Absolute Neutrophils 15.2 10^3/uL (1.4-6.5); Hematocrit 26.4 % (39.0-52.0); Hemoglobin 8.5 g/dL (13.0-18.0); Mean Corp Hgb Conc. 32.2 g/dL (33.0-37.0); Mean Corpuscular Hgb 32.3 pg (27.0-31.0); Mean Corpuscular Volume 100.4 fL (80.0-94.0); Mean Platelet Volume 11.5 fL (7.4-10.4); Nucleated Red Blood Cells % 0 % (-); Platelet Count 313 10^3/uL (130-400); Red Blood Cell Count 2.63 10^6/uL (4.70-6.10); Red Cell Dist. Width 17.6 % (11.5-14.5); White Blood Cell Count 18.4 10^3/uL (4.8-10.8)
[2023-12-31] MEDS: PACERONE 100 MG PO (09:25)
[2023-12-31] MEDS: ZETIA 10 MG PO (09:25)
[2023-12-31] MEDS: APRESOLINE 50 MG PO (09:25)
[2023-12-31] MEDS: LASIX 80 MG PO (09:25)
[2023-12-31] MEDS: LIPITOR 40 MG PO (09:26)
[2023-12-31] MEDS: CATAPRES 0.299999999999999989 MG PO ×2 (09:26→21:28)
[2023-12-31] MEDS: RENVELA 2400 MG PO ×3 (09:26→21:28)
[2023-12-31] MEDS: NOVOLOG FLEXPEN-LOW RESISTANCE 2 UNITS SC ×3 (09:26→18:46)
--- NOTE | 2023-12-31 10:36 | W.PN.URO.CBU ---
Today's Communication / Plan
-
Sanches catheter exchanged at bedside this morning: appeared to be in improper position
16 Fr Sanches placed w/o event: secure to StatLock
Assessment / Plan
-
s/p TURBT roughly 1 months ago: recurrent/persistent gross hematuria
Eroded AUS: s/p removal
History of prostate cancer
ESRD
Diagnosis
-
Date of Service: December 31, 2023
-
Patient Diagnosis:
History of prostate cancer s/p radical prostatectomy
History of bladder cancer: managed by Dr. Burnham of [facility]. Patient last underwent TURBT roughly 1 month ago and has had recurrent/persistent gross hematuria since
At the time of his TURBT he was noted to have urethral erosion of his previously placed artificial urinary sphincter: it was explanted at the time
He has ESRD
---
Patient was admitted to from his SNF yesterday, just a few days after having been discharged, with a poorly draining Sanches and gross hematuria
He has evidence of pneumonia
Subjective
-
Patient lethargic
Denies SP pain
Objective
-
Vital Signs
Temp Pulse Resp BP Pulse Ox
98.4 F 90 16 149/89 99
12/31/23 07:23 12/31/23 07:23 12/31/23 07:23 12/31/23 07:23 12/31/23 07:23
Intake and Output
12/30/23 12/31/23 01/01/24
06:59 06:59 06:59
Intake Total 240 / 240
Output Total 250 / 250
Balance -10 / -10
Intake:
Oral fluids 240 / 240
Output:
Urine, Sanches 250 / 250
Laboratory Results
12/31/23 07:23
12/31/23 07:23
Review of Systems
-
Constitutional: Fatigue
Respiratory: No Symptoms
Cardiac: No Symptoms
Abdomen/GI: No Symptoms
: Bleeding
Physical Exam
-
General - frail, no acute distress
Abdomen - soft, non-tender, bladder non-palpable
Genitalia - normal with 14 Fr Sanches catheter and bloody urine from around catheter
Counseling
-
Keep Sanches
Patient to follow up with Dr. Burnham
Will follow
--- NOTE | 2023-12-31 10:37 | WOUNDNOTE ---
R CALF (MEDIAL)(with photo flash)
--- NOTE | 2023-12-31 10:37 | WOUNDNOTE ---
ROBERTO CARLOS (with photo flash)
--- NOTE | 2023-12-31 10:38 | WOUNDNOTE ---
L CALF/ANKLE (MEDIAL)
--- NOTE | 2023-12-31 10:38 | WOUNDNOTE ---
L CALF (LATERAL POSTERIOR)
--- NOTE | 2023-12-31 10:38 | WOUNDNOTE ---
LLE (LATERAL POSTERIOR)
--- NOTE | 2023-12-31 10:39 | WOUNDNOTE ---
R CALF/ANKLE (LATERAL)
--- NOTE | 2023-12-31 10:39 | WOUNDNOTE ---
R CALF (POSTERIOR MEDIAL)(with photo flash)
--- NOTE | 2023-12-31 10:40 | WOUNDNOTE ---
L THIGH (MEDIAL LOWER)
--- NOTE | 2023-12-31 10:42 | WOUNDNOTE ---
LLE (LATERAL POSTERIOR)
--- NOTE | 2023-12-31 10:44 | WOUNDNOTE ---
WO RN note: Patient admitted with recurrent hematuria, chronic che, ESRD on HD. Patient admitted from SNF.
See H&P for complete history.
PMH: diarrhea, GI bleed, ESRD on HD, secondary hyperparathyroid, CABG, a fib (Eliquis), HTN, prostate CA, prostatectomy, DM, anemia, skin cancer, depression, former smoker, former ETOH abuse.
Wound Location and type/assessment: Patient admitted with: MASD perianal/coccyx,buttocks skin. Bilateral Le scattered liner necrotic and black/purple ecchymotic areas. Pedal pulses heard via portable Doppler. L medial thigh small dark
ecchymotic/scabbed areas. Patient seen by vascular during recent admission. Abdominal incisions with glue approximated.
Appetite: 1800 melissa ADA diet.
Pressure redistribution devices in place: Waffle air overlay. He lifts his legs independently. Patient in chair currently.
Plan: Dr. 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 Dressings changed Le's (adaptic, ABD pad, spanage). Patient stood briefly with walker and assistance from
[facility]. Air chair cushion given.
Care plan to be updated and will follow as needed.
Recommend follow up at wound care center upon discharge.
[2023-12-31 12:05] LABS: Glucose - Point of Care 207 mg/dl (70-99)
--- NOTE | 2023-12-31 12:42 | W.CON.NEPH ---
Consultation
-
Date/Time Consultation Requested: December 31, 2023 7:00 AM
Date/Time Consultation Performed: December 31, 2023 12:15 PM
Requesting Provider: Joshua
Performing Provider: Essence
Reason for Consultation: ESRD
Medical History
-
Chief Complaint: ESRD
History of Present Illness:
The patient is a 78-year-old male with a past medical history of end-stage renal disease who dialyzes Sunday and Sunday at the [facility] dialysis unit. He has a history of diabetes maintained on insulin therapy and his
underlying hypertension has been managed on the combinations of hydralazine, clonidine. He presented to the hospital complaining of ongoing hematuria with bleeding around his Sanches catheter site and lower abdominal pressure.� The patient reports
increased bleeding into Sanches bag today at rehab.� He denies fever, chills, chest pain, palpitations, shortness of breath, nausea vomiting, diarrhea.� He was just admitted on 12/13 - 12/29/2023 with a history of bladder tumor with resection with
hematuria evaluated by urology which was stated to be expected secondary to recent urological procedure� He was admitted for multiple comorbidities including TME leukocytosis with unremarkable lab work for acute infection negative blood cultures
removal of PD catheter on 12/21/[address] abdomen no active infection.� He also has had periods of hypoglycemia his Lantus was decreased to 4 units daily.� He had suspicion for calciphylaxis and had skin biopsy which is awaiting pathology
has been started on sodium thiosulfate with hemodialysis per nephrology. He was discharged to intermediate for rehab he has a left AV fistula where hemodialysis is being administered through. As of this morning his catheter was exchanged and he
continues to have clots in his Sanches.
Past Medical History
1.� ESRD several years, initially was on PD then HD, now returned
� � to PD.
2.� Chronic anemia, however, recent GI bleeding from colonic AVMs.
3.� Secondary hyperparathyroidism on vitamin D.
4.� Paroxysmal AFib on anticoagulation with Eliquis.
5.� CHF, combined systolic and diastolic.
6.� History of bladder cancer, status post TURP and chemo.
7.� Prostate cancer, status post prostatectomy.
8.� Hyperlipidemia.
9.� Type 2 diabetes.
10. Prior MT, ischemic cardiomyopathy.
11. Diverticulosis.
12. Fatty liver.
13. Skin cancer.
14. Depression.
15. Colonic polyps.
16. Hypertension.
17. Prior CABG 2019.
18. Kidney biopsy.
19. Cataract surgery.
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
Social History
Tobacco: Former Smoker
Alcohol: None
Drug: None
Family History
No chronic kidney disease
Allergies / Home Medications
Allergy/AdvReac Type Severity Reaction Status Date / Time
amlodipine Allergy edema Verified 12/30/23 20:17
Medication Instructions Recorded Confirmed Type
ezetimibe 10 mg tablet 10 mg PO DAILY High cholesterol 05/11/20 12/31/23 History
vilazodone 40 mg tablet (Viibryd) 40 mg PO DAILY Depression 05/11/20 12/31/23 History
atorvastatin 40 mg tablet 40 mg PO DAILY High cholesterol 05/18/22 12/31/23 History
furosemide 80 mg tablet 80 mg PO DAILY Fluid 05/18/22 12/31/23 History
retention/Swelling
mv,[id number] 2 cap PO DAILY Supplement 05/18/22 12/31/23 History
oil 400 mcg-500 unit capsule
(ProRenal QD)
coenzyme Q10 100 mg capsule 100 mg PO QPM Supplement 08/04/22 12/31/23 History
(CoQ-10)
ipratropium bromide 21 mcg (0.03 2 spray intranasal BID Allergies 08/04/22 12/31/23 History
%) nasal spray
sevelamer carbonate 800 mg tablet 2,400 mg PO MEALS Kidney Disease 08/04/22 12/31/23 History
insulin aspart U-100 100 unit/mL 0 sliding scale dose SC MEALS 08/17/22 12/31/23 History
subcutaneous solution (Novolog Diabetes
U-100 Insulin aspart)
amiodarone 200 mg tablet 100 mg PO DAILY Arrhythmia 02/27/23 12/31/23 History
trazodone 50 mg tablet 50 mg PO HS PRN Sleep 04/06/23 12/31/23 History
cholecalciferol (vitamin D3) 125 125 mcg PO QPM Supplement 06/15/23 12/31/23 History
mcg (5,000 unit) tablet
clonidine HCl 0.3 mg tablet 0.3 mg PO BID Blood Pressure 06/15/23 12/31/23 History
hydralazine 50 mg tablet 50 mg PO DAILY Blood Pressure 06/15/23 12/31/23 History
latanoprost 0.005 % eye drops 1 drp BOTH EYES HS Eye Condition 06/15/23 12/31/23 History
polyethylene glycol 3350 17 gram 17 g PO DAILY PRN constipation 06/15/23 12/31/23 History
oral powder packet (Miralax)
aspirin 81 mg tablet,delayed 81 mg PO DAILY Blood Clot 09/25/23 12/31/23 History
release Prevention/Tx
hydromorphone 2 mg tablet 2 mg PO Q6HPRN PRN mod to severe 12/25/23 12/31/23 Rx
pain #4 tabs
fluticasone propionate 50 2 spray intranasal DAILY 12/30/23 12/31/23 History
mcg/actuation nasal
spray,suspension
insulin glargine 100 unit/mL (3 13 unit SC HS Diabetes 12/31/23 12/31/23 History
mL) subcutaneous pen (Lantus
Solostar U-100 Insulin)
Review of Systems
-
History Source: Patient
All other systems: Negative unless noted
Constitutional: No Symptoms
EENT: No Symptoms
Respiratory: No Symptoms
Cardiac: No Symptoms
Abdomen/GI: Abdominal Pain
: Difficulty Voiding, Urgency, Bleeding and Other (Sanches catheter with noted clotting and difficulty voiding)
Musculoskeletal: No Symptoms
Skin: Other (Skin lesion along lower extremity consistent with calciphylaxis)
Neurological: No Symptoms
Endocrine: No Symptoms
Hematologic/Lymphatic: No Symptoms
Physical Exam
Vital Signs
Vital Signs
Temp Pulse Resp BP Pulse Ox
98.4 F 90 16 149/89 99
12/31/23 07:23 12/31/23 07:23 12/31/23 07:23 12/31/23 07:23 12/31/23 07:23
Lab Results
12/31/23 07:23
12/31/23 07:23
WBC 18.4 10^3/uL (4.8-10.8) H 12/31/23 07:23
RBC 2.63 10^6/uL (4.70-6.10) L 12/31/23 07:23
Hgb 8.5 g/dL (13.0-18.0) L 12/31/23 07:23
Hct 26.4 % (39.0-52.0) L 12/31/23 07:23
Plt Count 313 10^3/uL (130-400) D 12/31/23 07:23
Sodium 132 mmol/L (135-145) L 12/31/23 07:23
Potassium 4.9 mmol/L (3.5-5.1) 12/31/23 07:23
Chloride 89 mmol/L (98-107) L 12/31/23 07:23
Carbon Dioxide 25 mmol/L (22-30) 12/31/23 07:23
BUN 68 mg/dl (9-20) H 12/31/23 07:23
Creatinine 6.0 mg/dL (0.7-1.3) H* 12/31/23 07:23
eGFR 8.92 12/31/23 07:23
Glucose 189 mg/dl (70-99) H 12/31/23 07:23
Calcium 8.4 mg/dl (8.4-10.2) 12/31/23 07:23
Albumin 3.5 g/dl (3.5-5.0) 12/31/23 07:23
Physical Exam
General: AOx3
HEENT: PERRL, EOMI and Anicteric
Respiratory: Clear
Cardiac: Regular Rate/Rhythm and Other (Vascular exam: Left upper extremity AV fistula with good thrill and bruit)
Breast: Deferred by me
Abdomen: Soft and Other (Tender in suprapubic region)
Rectal: Deferred by Provider
Genito-urinary: No Costovertebral Tender
Musculoskeletal: No Clubbing, No Cyanosis and No Edema
Skin: No Rash
Neuro: Nonfocal/Grossly Intact and Strength (5 out of 5 both upper and lower extremities)
Hematologic/Lymphatic: No Cervical Lymphadenopathy, No Submandibular Lymphadenopathy and No Supraclavicular Lymphadenopathy
Psych: Mood/afflect pleasant
Assessment/Plan
-
Impression:
Suprapubic discomfort with blood clots and catheter
History of colonic AVMs (APC February 2023, May 2023, Sep 30)
ESRD on PD (recent conversion from HD)
chronic combined Heart failure with reduced EF46%, DD stage2
CAD status post CABG 2018
Edema
Bladder CA status post TURBT
Prostate CA status post prostatectomy
Diabetes mellitus type 2
Hypertension multidrug
Hypercholesterolemia
Paroxysmal atrial fibrillation on anticoagulation
Secondary hyperparathyroidism
Chronic back pain requiring epidural injections
Left brachiocephalic AV fistula
Depression
Leukocytosis
Falls
Lower extremity calciphylaxis
Hyperphosphatemia
Plan:
-Hemodialysis to be provided today and orders provided
-Thiosulfate provided on dialysis for calciphylaxis
-WINSTON provided for anemia
-Hemodynamically stable on current antihypertensives
-Sanches catheter exchanged by urology blood clots persist, may require CBI
-Continue sevelamer with meals in regards to hyperphosphatemia
-Appropriate dietary and fluid restrictions ordered
-Cefepime appropiratly dosed for presumed pneumonia due to aspiration
Data Reviewed
-
Radiology: Image Personally Visualized and interpreted (Chest x-ray personally reviewed by myself from admission:lower lobe interstitial changed noted)
Labs: Labs Reviewed by me (Reviewed CBC basic metabolic panel)
Old Records: Reviewed (Nephrology consultation for end-stage renal disease reviewed from December 2023)
[2023-12-31] MEDS: DITROPAN 5 MG PO ×2 (12:58→21:30)
--- NOTE | 2023-12-31 14:57 | W.PN.HOSP.TC ---
Today's Communication/Plan
-
see note
continue empiric abx
wound care
monitor hematuria improvement
Assessment / Plan
Assessment / Plan
# Recurrent hematuria i
# Prostate/bladder cancer status post recent prostatectomy and bladder scraping
# Chronic Sanches catheter and artificial urinary sphincter status post explant
# Recent TURBT
-Patient had episode of hematuria, somewhat to be expected with reported
-Patient was evaluated last visit no intervention recommended 12/24/2023
-Urology evaluated again today and catheter has been exchanged.
-Patient having some bladder spasms, cannot use Detrol with ESRD. Trial of oxybutynin.
-Mild leukocytosis and maintaining on empiric IV cefepime
# Acute on chronic leukocytosis
Recent aspiration pneumonia
-Treated at [facility] recently
-CXR: Moderate left lower lobe pneumonia.� Previous CABG surgery.� Chronic superior endplate fracture L1.� Mild cardiomegaly
-Had recent blood cultures x 2, PD catheter culture and CT abdomen all negative
-Will give empiric IV cefepime
# Calcific uremic arteriolopathy
-bilateral LE wound on calf
-already on sevalemer
-Getting Sodium thiosulfate with HD
-PTH 362 on 12/23 - discussed with nephro and considering starting cinacalcet
-continue wound care
# ESRD on HD MWF
# h/o of PD
-PD catheter removed on 12/20.
-Current dialysis through left upper arm fistula, good palpable thrill.
#IDDM with� hx hypogylcemia
-lantus 4u and iss.�
Transaminitis recent improving
Secondary hyperparathyroidism
CAD status post CABG
Recent demand ischemia/NSTEMI
Paroxysmal atrial fibrillation - continue asa/amiodarone
Combined systolic/diastolic CHF - furosemide
Essential hypertension
Hypercholesterolemia
Chronic constipation
Chronic anemia
Diverticulosis
History of fatty liver
History of skin cancer
Depression
Cataract surgery
DVT prophylaxis-SCDs in the setting of hematuria
DNR/DNI
Anticipated Discharge: 24 - 48 hours
Subjective/Interval History
-
Date of Service: December 31, 2023
Complaining having bladder spasm
Minimal bright red blood in Sanches catheter
afebrile
Objective Data
-
Labs:
Laboratory Results
12/31/23
07:23
WBC 18.4 H
Hgb 8.5 L
Hct 26.4 L
Plt Count 313 D
Sodium 132 L
Potassium 4.9
Chloride 89 L
Carbon Dioxide 25
BUN 68 H
Creatinine 6.0 H*
Glucose 189 H
Calcium 8.4
Total Bilirubin 0.8
AST 50
ALT 46
Alkaline Phosphatase 130 H
Vital Signs:
Vital Signs
Temp Pulse Resp BP Pulse Ox
98.4 F 90 16 149/89 99
12/31/23 07:23 12/31/23 07:23 12/31/23 07:23 12/31/23 07:23 12/31/23 07:23
I&O
12/30/23 12/31/23 01/01/24
06:59 06:59 06:59
Intake Total 240 / 240
Output Total 250 / 250
Balance -10 / -10
Review of Systems
-
Respiratory: Reports No Symptoms
Cardiac: Reports No Symptoms
Abdomen/GI: Reports No Symptoms
Genitourinary: Reports Bleeding and Other (Bladder spasm)
Physical Exam
-
General: Negative Appears in Distress
HEENT: Negative Oxygen
Respiratory: Clear to Auscultation
Cardiac: Regular Rhythm and S1/S2; Negative Murmur, Rub or Gallop
GI: Soft and Nontender; Negative Organomegaly
Genito-urinary: Sanches (Blood in urine)
Skin: Other (Bilateral LE long black eschar)
Neuro: Awake, Alert, Oriented and Nonfocal/Grossly Intact
Psych: Calm
--- NOTE | 2023-12-31 15:20 | CM ---
software development manager reviewed patient's chart and met with patient and patient was recently placed at [facility] with HD at [place] [place]. software development manager spoke with patient and patient's family and they confirmed that plan is for patient to
return to [facility] for skilled placement. software development manager reached out to [facility] in admissions at [facility] [phone]. Prior to skilled placement patient was living alone in a 2 story home, patient remained on 1st floor, patient used a
walker, cane, rollator and w/c, patient has a prescription plan and uses [facility] pharmacy.
PCP: Dr. Gomez
Plan; Patient to return to [facility] when stable, referral sent through [facility] to [facility]. software development manager spoke with Estefania at [facility], and she will need update when patient is cleared for discharge.
--- NOTE | 2023-12-31 17:04 | W.PN.NEPH.HD ---
Assessment
-
Patient seen on HD
sbp stable at u/f
has bladder pain
thiosulfate given on HD
Progress Note - Hemodialysis
-
Date of Service: December 31, 2023
Duration: 30 minutes and 3 hours
Potassium Bath: 2
Calcium Bath: 2.5
Opti-Dialyzer: 160
Ultrafiltration: Other (2kg)
Blood Flow: 400
Dialysate Flow: 600
Heparin: none
EPO: 10K
[2023-12-31] MEDS: VITAMIN D3 (cholecalciferol) 125 MCG PO (17:50)
[2023-12-31] MEDS: RETACRIT 10000 UNITS IV (17:50)
[2023-12-31] MEDS: VALIUM 2 MG PO (17:50)
[2023-12-31 18:33] LABS: Glucose - Point of Care 208 mg/dl (70-99)
[2023-12-31] MEDS: SODIUM THIOSULFATE 250 GRAMS IV (18:50)
[2023-12-31 20:52] LABS: Glucose - Point of Care 210 mg/dl (70-99)
[2023-12-31] MEDS: ANTIFUNGAL CLEAR 1 APPLIC TOPICAL (21:28)
[2023-12-31] MEDS: LANTUS 0.0400000000000000008 UNITS SC (21:32)
[2023-12-31] MEDS: XALATAN OPHTHALMIC SOLUTION 1 DROP BOTH EYES (21:33)
[2023-12-31] MEDS: MAXIPIME 1000 MG IV (23:00)
[2023-12-31] MEDS: STERILE WATER FOR INJECTION 10 ML IV (23:00)
[2024-01-01 06:00] VITALS: BMI 29.2
[2024-01-01 07:08] LABS: Glucose - Point of Care 202 mg/dl (70-99)
[2024-01-01 07:50] VITALS: BP 122/59
[2024-01-01 08:11] LABS: ALT (SGPT) 29 U/L (0-50); AST (SGOT) 30 U/L (17-59); Albumin 2.8 g/dl (3.5-5.0); Alkaline Phosphatase 106 U/L (38-126); Blood Urea Nitrogen 37 mg/dl (9-20); Calcium 8.1 mg/dl (8.4-10.2); Carbon Dioxide 28 mmol/L (22-30); Chloride 92 mmol/L (98-107); Estimated Creatinine Clearance 14 ml/min; Glucose 188 mg/dl (70-99); Potassium 3.5 mmol/L (3.5-5.1); Sodium 131 mmol/L (135-145); Total Bilirubin 0.4 mg/dl (0.2-1.3); Total Protein 5.2 g/dl (6.3-8.2); eGFR 15.43
[2024-01-01 08:18] LABS: % Basophils 0.2 % (0-2); % Eosinophils 1.8 % (0-6); % Immature Granulocytes 0.8 % (0-0.5); % Lymphocytes 8.3 % (20.5-51.1); % Neutrophils 74.9 % (42.2-75.2); Absolute Eosinophils 0.2 10^3/uL (0-0.7); Absolute Immature Granulocytes 0.1 10^3/uL (0-0.05); Absolute Monocytes 1.7 10^3/uL (0.1-0.6); Mean Corp Hgb Conc. 31.7 g/dL (33.0-37.0); Mean Corpuscular Hgb 31.9 pg (27.0-31.0); Mean Corpuscular Volume 100.5 fL (80.0-94.0); Mean Platelet Volume 11.6 fL (7.4-10.4); Nucleated Red Blood Cells % 0 % (-); Platelet Count 253 10^3/uL (130-400); Red Blood Cell Count 2.07 10^6/uL (4.70-6.10); Red Cell Dist. Width 17.5 % (11.5-14.5)
[2024-01-01 08:22] LABS: Hematocrit 20.8 % (39.0-52.0); Hemoglobin 6.6 g/dL (13.0-18.0)
[2024-01-01] MEDS: CATAPRES 0.299999999999999989 MG PO ×2 (09:10→21:26)
[2024-01-01] MEDS: LIPITOR 40 MG PO (09:10)
[2024-01-01] MEDS: LASIX 80 MG PO (09:10)
[2024-01-01] MEDS: ANTIFUNGAL CLEAR 1 APPLIC TOPICAL ×2 (09:10→21:25)
[2024-01-01] MEDS: ZETIA 10 MG PO (09:10)
[2024-01-01] MEDS: DAKIN'S SOLUTION 0.125% 1/4 STRENGTH 1 ML TOPICAL (09:11)
[2024-01-01] MEDS: RENVELA 2400 MG PO ×3 (09:13→17:37)
[2024-01-01] MEDS: PACERONE 100 MG PO (09:13)
[2024-01-01] MEDS: APRESOLINE 50 MG PO (09:13)
[2024-01-01] MEDS: DITROPAN 5 MG PO ×3 (09:22→21:26)
[2024-01-01] MEDS: NOVOLOG FLEXPEN-LOW RESISTANCE 2 UNITS SC (09:31)
--- NOTE | 2024-01-01 10:29 | W.PN.URO.CBU ---
Today's Communication / Plan
-
Sadly, there is little to offer urologically
With ESRD and compromised platelet function, patient has had persistent gross hematuria since recent TURBT at [facility] patient
Discussed with Hospitalist
Assessment / Plan
-
s/p TURBT roughly 1 month ago: recurrent/persistent gross hematuria
Eroded AUS: s/p removal
History of prostate cancer
ESRD
---
Sanches replaced for mal-position and upsized 12/31/23
Diagnosis
-
Date of Service: January 01, 2024
-
Patient Diagnosis:
Post Op Day:
Patient Diagnosis:
History of prostate cancer s/p radical prostatectomy
History of bladder cancer: managed by Dr. Burnham of [facility]. Patient last underwent TURBT roughly 1 month ago and has had recurrent/persistent gross hematuria since
At the time of his TURBT he was noted to have urethral erosion of his previously placed artificial urinary sphincter: it was explanted at the time
He has ESRD
---
Patient was admitted to from his SNF 12/30/23, just a few days after having been discharged, with a poorly draining Sanches and gross hematuria
He has evidence of pneumonia
Subjective
-
Somnolent, no acute distress
Objective
-
Vital Signs
Temp Pulse Resp BP Pulse Ox
97.8 F 82 16 122/59 96
01/01/24 07:50 01/01/24 07:50 01/01/24 07:50 01/01/24 07:50 01/01/24 07:50
Intake and Output
12/31/23 01/01/24 01/02/24
06:59 06:59 06:59
Intake Total 240 / 240 350 / 350
Output Total 250 / 250 100 / 100
Balance -10 / -10 250 / 250
Intake:
Oral fluids 240 / 240 350 / 350
Output:
Urine, Sanches 250 / 250 50 / 50
Urine, Voided 50 / 50
Other:
How many times incontinent 1
SMALL amount urine
How many times incontinent 2
MODERATE amount urine
Laboratory Results
01/01/24 06:37
01/01/24 06:37
Review of Systems
-
Constitutional: Fatigue
Abdomen/GI: No Symptoms
: Bleeding
Physical Exam
-
General - frail and ill-appearing, no acute distress
Abdomen - soft, non-tender
Genitalia - normal with Sanches draining bloody urine w/o clot
[2024-01-01 10:59] VITALS: BP 127/62
[2024-01-01 11:15] VITALS: BP 130/68
[2024-01-01] MEDS: DILAUDID 2 MG PO (12:00)
[2024-01-01] MEDS: NOVOLOG FLEXPEN-LOW RESISTANCE 4 UNITS SC (12:02)
[2024-01-01 12:03] LABS: Glucose - Point of Care 309 mg/dl (70-99)
--- NOTE | 2024-01-01 12:27 | W.PN.NEPH.PH ---
Today's Communication / Plan
-
Hd tomorrow with thiosulfate
Assessment/Plan
-
Impression:
Suprapubic discomfort with blood clots and catheter
History of colonic AVMs (APC February 2023, May 2023, Sep 30)
ESRD on PD (recent conversion from HD)
chronic combined Heart failure with reduced EF46%, DD stage2
CAD status post CABG 2018
Edema
Bladder CA status post TURBT
Prostate CA status post prostatectomy
Diabetes mellitus type 2
Hypertension multidrug
Hypercholesterolemia
Paroxysmal atrial fibrillation on anticoagulation
Secondary hyperparathyroidism
Chronic back pain requiring epidural injections
Left brachiocephalic AV fistula
Depression
Leukocytosis
Falls
Lower extremity calciphylaxis
Hyperphosphatemia
Plan:
-Hemodialysis to be provided tomorrow and orders provided
-Thiosulfate provided on dialysis for calciphylaxis
-WINSTON provided for anemia, but blood products given for worsening anemia today
-Hemodynamically stable on current antihypertensives
-Che catheter exchanged by urology blood clots persist, note reviewed
-Continue sevelamer with meals in regards to hyperphosphatemia
-Appropriate dietary and fluid restrictions ordered
-Cefepime dosed for presumed pneumonia due to aspiration
-
-
Date of Service: January 01, 2024
CC / HPI / ROS
-
Chief Complaint:
ESRD
History of Present Illness:
ESRD MWF
hemodynamically stable
receiving blood products for worsening anemia
on thiosulfate for lower extremity calciphylaxis
Review of Systems:
myoclonic jerks continue
no fevers
blood in che
Labs
-
Labs:
WBC 12.0 10^3/uL (4.8-10.8) H 01/01/24 06:37
RBC 2.07 10^6/uL (4.70-6.10) L 01/01/24 06:37
Hgb 6.6 g/dL (13.0-18.0) L* D 01/01/24 06:37
Hct 20.8 % (39.0-52.0) L* 01/01/24 06:37
Plt Count 253 10^3/uL (130-400) 01/01/24 06:37
Sodium 131 mmol/L (135-145) L 01/01/24 06:37
Potassium 3.5 mmol/L (3.5-5.1) D 01/01/24 06:37
Chloride 92 mmol/L (98-107) L 01/01/24 06:37
Carbon Dioxide 28 mmol/L (22-30) 01/01/24 06:37
BUN 37 mg/dl (9-20) H 01/01/24 06:37
Creatinine 3.8 mg/dL (0.7-1.3) H 01/01/24 06:37
eGFR 15.43 01/01/24 06:37
Glucose 188 mg/dl (70-99) H 01/01/24 06:37
Calcium 8.1 mg/dl (8.4-10.2) L 01/01/24 06:37
Albumin 2.8 g/dl (3.5-5.0) L 01/01/24 06:37
Physical Exam
-
Vital Signs:
Vital Signs
Temp Pulse Resp BP Pulse Ox
98.2 F 82 18 130/68 96
01/01/24 11:15 01/01/24 11:15 01/01/24 11:15 01/01/24 11:15 01/01/24 07:50
Cardiovascular:: Regular rate and rhythm
Respiratory:: Bilateral: Coarse
Lung Excursion:: Normal
Abdomen:: Nontender and Soft
Bowel Sounds:: Normal
Extremity Edema:: None: Bilateral:
Che Catheter: Yes
--- NOTE | 2024-01-01 13:21 | CM ---
Plan is for patient to return to [facility] to complete his therapy, patient needs to be able to tolerate sitting in w/c in order for [facility] to provide transport to [facility].
Plan; To follow with patient progress with physical therapy and provide update to [facility] in admissions at [facility] [phone].
[2024-01-01 14:48] VITALS: BP 124/62
[2024-01-01 14:52] VITALS: BP 124/62
--- NOTE | 2024-01-01 15:57 | W.PN.HOSP.TC ---
Today's Communication/Plan
-
1 u prbc
f/u hbg count
continue abx
Assessment / Plan
Assessment / Plan
# Recurrent hematuria i
# Prostate/bladder cancer status post recent prostatectomy and bladder scraping
# Chronic Sanches catheter and artificial urinary sphincter status post explant
# Recent TURBT
-Patient had episode of hematuria, somewhat to be expected with reported
-Patient was evaluated last visit no intervention recommended 12/24/2023
-Urology evaluated again this admit and catheter has been exchanged.
-Patient having some bladder spasms, cannot use Detrol with ESRD. Trial of oxybutynin and valium provided.
-Mild leukocytosis and maintaining on empiric IV cefepime, trending down. remains afebrile.
# Acute on chronic leukocytosis
Recent aspiration pneumonia
-Treated at [facility] recently
-CXR: Moderate left lower lobe pneumonia.� Previous CABG surgery.� Chronic superior endplate fracture L1.� Mild cardiomegaly
-Had recent blood cultures x 2, PD catheter culture and CT abdomen all negative
-Will give empiric IV cefepime
#Acute blood loss anemia from hematuria
Anemia of chronic renal disease
-giving 1 u prbc today, f/u count
-baseline anemia with ESRD and nephro providing WINSTON
# Calcific uremic arteriolopathy
-bilateral LE wound on calf
-already on sevalemer
-Getting Sodium thiosulfate with HD
-PTH 362 on 12/23 - discussed with nephro and considering starting cinacalcet
-continue wound care
# ESRD on HD MWF
# h/o of PD
-PD catheter removed on 12/20.
-Current dialysis through left upper arm fistula, good palpable thrill.
#IDDM with� hx hypogylcemia
-lantus 4u and iss.�
Transaminitis recent improving
Secondary hyperparathyroidism
CAD status post CABG
Recent demand ischemia/NSTEMI
Paroxysmal atrial fibrillation - continue asa/amiodarone
Combined systolic/diastolic CHF - furosemide
Essential hypertension
Hypercholesterolemia
Chronic constipation
Chronic anemia
Diverticulosis
History of fatty liver
History of skin cancer
Depression
Cataract surgery
DVT prophylaxis-SCDs in the setting of hematuria
DNR/DNI
Discussed care plan with urology
Anticipated Discharge: 24 - 48 hours
Subjective/Interval History
-
Date of Service: January 01, 2024
concerned about blood in urine
still have some episodic spasm in bladder
Objective Data
-
Labs:
Laboratory Results
01/01/24
06:37
WBC 12.0 H
Hgb 6.6 L* D
Hct 20.8 L*
Plt Count 253
Sodium 131 L
Potassium 3.5 D
Chloride 92 L
Carbon Dioxide 28
BUN 37 H
Creatinine 3.8 H
Glucose 188 H
Calcium 8.1 L
Total Bilirubin 0.4
AST 30
ALT 29
Alkaline Phosphatase 106
Vital Signs:
Vital Signs
Temp Pulse Resp BP Pulse Ox
98.3 F 72 18 124/62 96
01/01/24 14:52 01/01/24 14:52 01/01/24 14:52 01/01/24 14:52 01/01/24 07:50
I&O
12/31/23 01/01/24 01/02/24
06:59 06:59 06:59
Intake Total 240 / 240 350 / 350 250 / 250
Output Total 250 / 250 100 / 100
Balance -10 / -10 250 / 250 250 / 250
Review of Systems
-
Respiratory: Reports No Symptoms
Cardiac: Reports No Symptoms
Abdomen/GI: Reports Abdominal Pain (Lower abd); Denies Nausea or Vomiting
Physical Exam
-
General: Negative Appears in Distress
HEENT: Negative Oxygen
Respiratory: Clear to Auscultation
Cardiac: Regular Rhythm and S1/S2; Negative Murmur, Rub or Gallop
GI: Soft and Nontender; Negative Organomegaly
Genito-urinary: Sanches (Blood in urine)
Skin: Other (Bilateral LE long black eschar)
Neuro: Awake, Alert, Oriented and Nonfocal/Grossly Intact
Psych: Calm
[2024-01-01 17:37] LABS: Glucose - Point of Care 393 mg/dl (70-99)
[2024-01-01] MEDS: NOVOLOG FLEXPEN-LOW RESISTANCE 5 UNITS SC (17:37)
[2024-01-01] MEDS: VITAMIN D3 (cholecalciferol) 125 MCG PO (17:37)
[2024-01-01 21:09] LABS: Glucose - Point of Care 231 mg/dl (70-99)
[2024-01-01] MEDS: LANTUS 0.0400000000000000008 UNITS SC (21:26)
[2024-01-01] MEDS: XALATAN OPHTHALMIC SOLUTION 1 DROP BOTH EYES (21:27)
[2024-01-01 23:04] VITALS: BP 137/59
[2024-01-01] MEDS: MAXIPIME 1000 MG IV (23:53)
[2024-01-01] MEDS: STERILE WATER FOR INJECTION 10 ML IV (23:53)
[2024-01-02] MEDS: DILAUDID 0.5 MG IV (01:42)
[2024-01-02 06:00] VITALS: BMI 29.6
[2024-01-02 07:30] VITALS: BP 98/58
[2024-01-02 08:19] LABS: Glucose - Point of Care 148 mg/dl (70-99)
[2024-01-02 08:21] LABS: % Basophils 0.2 % (0-2); % Eosinophils 2.7 % (0-6); % Immature Granulocytes 0.6 % (0-0.5); % Lymphocytes 7.6 % (20.5-51.1); % Neutrophils 75.9 % (42.2-75.2); Absolute Eosinophils 0.3 10^3/uL (0-0.7); Absolute Immature Granulocytes 0.1 10^3/uL (0-0.05); Absolute Monocytes 1.7 10^3/uL (0.1-0.6); Absolute Neutrophils 9.7 10^3/uL (1.4-6.5); Hematocrit 22.9 % (39.0-52.0); Hemoglobin 7.5 g/dL (13.0-18.0); Mean Corp Hgb Conc. 32.8 g/dL (33.0-37.0); Mean Corpuscular Hgb 32.8 pg (27.0-31.0); Mean Platelet Volume 11.6 fL (7.4-10.4); Nucleated Red Blood Cells % 0 % (-); Platelet Count 239 10^3/uL (130-400); Red Blood Cell Count 2.29 10^6/uL (4.70-6.10); Red Cell Dist. Width 18.1 % (11.5-14.5); White Blood Cell Count 12.7 10^3/uL (4.8-10.8)
[2024-01-02] MEDS: RETACRIT 10000 UNITS IV (08:38)
[2024-01-02] MEDS: FERRLECIT 125 MG IV (08:40)
[2024-01-02 08:43] LABS: ALT (SGPT) 22 U/L (0-50); AST (SGOT) 20 U/L (17-59); Albumin 2.8 g/dl (3.5-5.0); Alkaline Phosphatase 93 U/L (38-126); Blood Urea Nitrogen 57 mg/dl (9-20); Calcium 8.4 mg/dl (8.4-10.2); Carbon Dioxide 27 mmol/L (22-30); Chloride 91 mmol/L (98-107); Estimated Creatinine Clearance 11 ml/min; Glucose 181 mg/dl (70-99); Potassium 3.8 mmol/L (3.5-5.1); Sodium 131 mmol/L (135-145); Total Bilirubin 0.5 mg/dl (0.2-1.3); Total Protein 5.2 g/dl (6.3-8.2); eGFR 10.84
[2024-01-02] MEDS: NOVOLOG FLEXPEN-LOW RESISTANCE SC ×2 (09:09→12:34)
[2024-01-02] MEDS: ROXICODONE 10 MG PO (09:23)
[2024-01-02] MEDS: SODIUM THIOSULFATE 250 GRAMS IV (10:12)
--- NOTE | 2024-01-02 10:18 | W.PN.URO.CBU ---
Today's Communication / Plan
-
Keep Sanches
Discharge when medically stable
Follow up with Drs. Burnham/Joyce
Assessment / Plan
-
s/p TURBT roughly 1 month ago: recurrent/persistent gross hematuria. Dr. Burnham has no plans for definitive therapy: family aware
Eroded AUS: s/p removal by Dr. Cook
History of prostate cancer
ESRD
---
Sanches replaced for mal-position and upsized 12/31/23
Diagnosis
-
Date of Service: January 02, 2024
-
Patient Diagnosis:
History of prostate cancer s/p radical prostatectomy
History of bladder cancer: managed by Dr. Burnham of [facility]. Patient last underwent TURBT roughly 1 month ago and has had recurrent/persistent gross hematuria since
Dr. Burnham was contacted 01/02/24: he reports he and the family have decided against definitive management of the patient's bladder cancer
At the time of his TURBT he was noted to have urethral erosion of his previously placed artificial urinary sphincter: it was explanted at the time by Dr. Cook
Patient has ESRD complicating his management
---
Patient was admitted to from his SNF 12/30/23, just a few days after having been discharged, with a poorly draining Sanches and gross hematuria
He has evidence of pneumonia
Subjective
-
Comfortable
No SP pain
Objective
-
Vital Signs
Temp Pulse Resp BP Pulse Ox
98.8 F 70 18 98/58 99
01/02/24 07:30 01/02/24 07:30 01/02/24 07:30 01/02/24 07:30 01/02/24 07:30
Intake and Output
01/01/24 01/02/24 01/03/24
06:59 06:59 06:59
Intake Total 350 / 350 610 / 610
Output Total 100 / 100 100 / 100
Balance 250 / 250 510 / 510
Intake:
Oral fluids 350 / 350 360 / 360
Blood Product Amount Infused ( 250 / 250
mL)
Packed Rbc Leukoreduced Unit 250 / 250
[id number]
Output:
Urine, Sanches 50 / 50 100 / 100
Urine, Voided 50 / 50
Other:
How many times incontinent 1
SMALL amount urine
How many times incontinent 2
MODERATE amount urine
Laboratory Results
01/02/24 07:58
01/02/24 07:58
Review of Systems
-
Constitutional: Fatigue
Cardiac: No Symptoms
Abdomen/GI: No Symptoms
: No Symptoms and Bleeding
Physical Exam
-
General - frail, no acute distress
Abdomen - soft, non-tender
Genitalia - normal with Sanches draining bloody (decreased) urine w/o clot
--- NOTE | 2024-01-02 11:40 | W.PN.NEPH.HD ---
Assessment
-
pt seen during HD
vitals stable
hb improving post PRBC on 12/31
sodium thiosulfate for calciphylaxis
monitor hematuria with chinedu PANIAGUA
AVF functions well
Progress Note - Hemodialysis
-
Date of Service: January 02, 2024
Duration: 30 minutes and 3 hours
Potassium Bath: 3
Calcium Bath: 2.5
Opti-Dialyzer: 160
Ultrafiltration: Other (2-3kg)
Blood Flow: 400
Dialysate Flow: 600
Heparin: no
EPO: [id number]
[2024-01-02] MEDS: LIPITOR 40 MG PO (12:02)
[2024-01-02] MEDS: RENVELA PO (12:03)
[2024-01-02] MEDS: RENVELA 2400 MG PO ×2 (12:03→17:47)
[2024-01-02] MEDS: PACERONE 100 MG PO (12:05)
[2024-01-02] MEDS: APRESOLINE 50 MG PO (12:06)
[2024-01-02] MEDS: CATAPRES 0.299999999999999989 MG PO ×2 (12:06→22:26)
[2024-01-02] MEDS: LASIX 80 MG PO (12:06)
[2024-01-02] MEDS: ZETIA 10 MG PO (12:06)
[2024-01-02] MEDS: ANTIFUNGAL CLEAR 1 APPLIC TOPICAL ×2 (12:07→22:26)
[2024-01-02] MEDS: DAKIN'S SOLUTION 0.125% 1/4 STRENGTH 473 ML TOPICAL (12:08)
[2024-01-02 12:20] LABS: Glucose - Point of Care 132 mg/dl (70-99)
--- NOTE | 2024-01-02 14:23 | W.PN.HOSP.TC ---
Today's Communication/Plan
-
monitor hbg trend
d/c rehab in 24-48 hrs if no hbg drop
Assessment / Plan
Assessment / Plan
# Recurrent hematuria i
# Prostate/bladder cancer status post recent prostatectomy and bladder scraping
# Chronic Sanches catheter and artificial urinary sphincter status post explant
# Recent TURBT
-Patient had episode of hematuria, somewhat to be expected with reported
-Patient was evaluated last visit no intervention recommended 12/24/2023
-Urology evaluated again this admit and catheter has been exchanged.
-Patient having some bladder spasms, cannot use Detrol with ESRD. Trial of oxybutynin and valium provided.
-Mild leukocytosis and maintaining on empiric IV cefepime, trending down. remains afebrile.
# Acute on chronic leukocytosis
Recent aspiration pneumonia
-Treated at [facility] recently
-CXR: Moderate left lower lobe pneumonia.� Previous CABG surgery.� Chronic superior endplate fracture L1.� Mild cardiomegaly
-Had recent blood cultures x 2, PD catheter culture and CT abdomen all negative
-Will give empiric IV cefepime
#Acute blood loss anemia from hematuria
Anemia of chronic renal disease
-got 1 u prbc today, f/u Hbg 7.5 today, monitor.
-baseline anemia with ESRD and nephro providing WINSTON
# Calcific uremic arteriolopathy
-bilateral LE wound on calf
-already on sevalemer
-Getting Sodium thiosulfate with HD
-PTH 362 on 12/23 - discussed with nephro and considering starting cinacalcet
-continue wound care
# ESRD on HD MWF
# h/o of PD
-PD catheter removed on 12/20.
-Current dialysis through left upper arm fistula, good palpable thrill.
#IDDM with� hx hypogylcemia
-lantus 4u and iss.�
Transaminitis recent improving
Secondary hyperparathyroidism
CAD status post CABG
Recent demand ischemia/NSTEMI
Paroxysmal atrial fibrillation - continue asa/amiodarone
Combined systolic/diastolic CHF - furosemide
Essential hypertension
Hypercholesterolemia
Chronic constipation
Chronic anemia
Diverticulosis
History of fatty liver
History of skin cancer
Depression
Cataract surgery
DVT prophylaxis-SCDs in the setting of hematuria
DNR/DNI
Anticipated Discharge: 24 - 48 hours
Subjective/Interval History
-
Date of Service: January 02, 2024
continues to have some blood mixed urine
some bladder spasm
Objective Data
-
Labs:
Laboratory Results
01/02/24
07:58
WBC 12.7 H
Hgb 7.5 L
Hct 22.9 L
Plt Count 239
Sodium 131 L
Potassium 3.8
Chloride 91 L
Carbon Dioxide 27
BUN 57 H
Creatinine 5.1 H*
Glucose 181 H
Calcium 8.4
Total Bilirubin 0.5
AST 20
ALT 22
Alkaline Phosphatase 93
Vital Signs:
Vital Signs
Temp Pulse Resp BP Pulse Ox
98.8 F 70 18 98/58 99
01/02/24 07:30 01/02/24 07:30 01/02/24 07:30 01/02/24 07:30 01/02/24 07:30
I&O
01/01/24 01/02/24 01/03/24
06:59 06:59 06:59
Intake Total 350 / 350 610 / 610
Output Total 100 / 100 100 / 100
Balance 250 / 250 510 / 510
Review of Systems
-
Respiratory: Reports No Symptoms
Cardiac: Reports No Symptoms
Abdomen/GI: Reports No Symptoms
Genitourinary: Reports Other (Bladder spasm)
Physical Exam
-
General: Negative Appears in Distress
HEENT: Negative Oxygen
Respiratory: Clear to Auscultation
Cardiac: Regular Rhythm and S1/S2; Negative Murmur, Rub or Gallop
GI: Soft and Nontender; Negative Organomegaly
Genito-urinary: Sanches (Blood in urine)
Skin: Other (Bilateral LE long black eschar)
Neuro: Awake, Alert, Oriented and Nonfocal/Grossly Intact
Psych: Calm
[2024-01-02 15:06] VITALS: BP 100/50; O2SAT 97
[2024-01-02 15:07] VITALS: BP 100/50
--- NOTE | 2024-01-02 16:02 | CM ---
deli manager continues to follow with patient progress notes, and plan is for patient to return to [facility], referral sent to [facility], patient is doing well with physical therapy. Patient with ESRD and plan to to have therapy at
[facility] and they will transport patient to HD at [place].
Plan; Skilled placement at [facility] and HD at [place], [facility] will continue to provide transport to HD.
[2024-01-02 16:15] VITALS: BP 113/53
[2024-01-02] MEDS: VITAMIN D3 (cholecalciferol) 125 MCG PO (17:47)
[2024-01-02 17:51] LABS: Glucose - Point of Care 187 mg/dl (70-99)
[2024-01-02] MEDS: NOVOLOG FLEXPEN-LOW RESISTANCE 1 UNITS SC (17:52)
[2024-01-02] MEDS: DITROPAN 5 MG PO ×2 (17:59→22:26)
[2024-01-02 22:17] LABS: Glucose - Point of Care 243 mg/dl (70-99)
[2024-01-02] MEDS: LANTUS 0.0400000000000000008 UNITS SC (22:26)
[2024-01-02] MEDS: XALATAN OPHTHALMIC SOLUTION 1 DROP BOTH EYES (22:26)
[2024-01-02] MEDS: MAXIPIME 1000 MG IV (23:16)
[2024-01-02] MEDS: STERILE WATER FOR INJECTION 10 ML IV (23:16)
[2024-01-02 23:38] VITALS: BP 131/58
[2024-01-03] MEDS: DILAUDID 0.5 MG IV (01:57)
[2024-01-03 07:12] LABS: Glucose - Point of Care 174 mg/dl (70-99)
[2024-01-03 07:30] VITALS: BP 127/56
[2024-01-03] MEDS: APRESOLINE 50 MG PO (07:57)
[2024-01-03] MEDS: ANTIFUNGAL CLEAR 1 APPLIC TOPICAL ×2 (07:57→20:42)
[2024-01-03] MEDS: NOVOLOG FLEXPEN-LOW RESISTANCE 1 UNITS SC (07:57)
[2024-01-03] MEDS: DAKIN'S SOLUTION 0.125% 1/4 STRENGTH 1 ML TOPICAL (07:58)
[2024-01-03] MEDS: CATAPRES 0.299999999999999989 MG PO ×2 (07:58→20:40)
[2024-01-03] MEDS: RENVELA 2400 MG PO ×3 (07:58→17:32)
[2024-01-03] MEDS: LASIX 80 MG PO (07:58)
[2024-01-03] MEDS: LIPITOR 40 MG PO (07:58)
[2024-01-03] MEDS: PACERONE 100 MG PO (07:58)
[2024-01-03] MEDS: ZETIA 10 MG PO (07:59)
--- NOTE | 2024-01-03 10:03 | W.PN.URO.CBU ---
Today's Communication / Plan
-
Discharge to SNF when cleared medically
No urologic intervention planned/indicated
Will contact treating urologist (Dr. Cook) regarding management of Sanches catheter as outpatient
Assessment / Plan
-
s/p TURBT roughly 1 month ago: recurrent/persistent gross hematuria. Dr. Burnham has no plans for definitive therapy: family aware
Eroded AUS: s/p removal by Dr. Cook
History of prostate cancer
ESRD
---
Sanches replaced for mal-position and upsized 12/31/23
Diagnosis
-
Date of Service: January 03, 2024
-
Patient Diagnosis:
History of prostate cancer s/p radical prostatectomy
History of bladder cancer: managed by Dr. Burnham of [facility] Patient last underwent TURBT roughly 1 month ago and has had recurrent/persistent gross hematuria since
Dr. Burnham was contacted 01/02/24: he reports he and the family have decided against definitive management of the patient's bladder cancer
At the time of his TURBT he was noted to have urethral erosion of his previously placed artificial urinary sphincter: it was explanted at the time by Dr. Cook
Patient has ESRD complicating his management
---
Patient was admitted to from his SNF 12/30/23, just a few days after having been discharged, with a poorly draining Sanches and gross hematuria
He has evidence of pneumonia
Subjective
-
Comfortable
Objective
-
Vital Signs
Temp Pulse Resp BP Pulse Ox
98.5 F 67 18 127/56 100
01/03/24 07:30 01/03/24 07:57 01/03/24 07:30 01/03/24 07:57 01/03/24 07:30
Intake and Output
03/20/24 03/21/24 03/22/24
06:59 06:59 06:59
Intake Total 610 / 610
Output Total 100 / 100 50 / 50
Balance 510 / 510 -50 / -50
Intake:
Oral fluids 360 / 360
Blood Product Amount Infused ( 250 / 250
mL)
Packed Rbc Leukoreduced Unit 250 / 250
[id number]
Output:
Urine, Sanches 100 / 100 50 / 50
Laboratory Results
01/02/24 07:58
01/02/24 07:58
Review of Systems
-
Constitutional: Fatigue
Respiratory: No Symptoms
Cardiac: No Symptoms
Abdomen/GI: No Symptoms
: Bleeding
Physical Exam
-
General - frail, chronically ill, no acute distress
Abdomen - soft, non-tender, no CVAT
Sanches draining bloody urine w/o clot
--- NOTE | 2024-01-03 10:19 | W.PN.URO.CBU ---
Today's Communication / Plan
-
Transfer back to SNF from [facility]
Patient should be re-directed to [facility] if needs readmission
Assessment / Plan
-
s/p TURBT roughly 1 month ago: recurrent/persistent gross hematuria. Dr. Burnham has no plans for definitive therapy: family aware
Eroded AUS: s/p removal by Dr. Cook
History of prostate cancer
ESRD
---
Sanches replaced for mal-position and upsized 12/31/23
Diagnosis
-
Date of Service: January 03, 2024
-
Patient Diagnosis:
Post Op Day:
Patient Diagnosis:
History of prostate cancer s/p radical prostatectomy
History of bladder cancer: managed by Dr. Burnham of [facility]. Patient last underwent TURBT roughly 1 month ago and has had recurrent/persistent gross hematuria since
Dr. Burnham was contacted 01/02/24: he reports he and the family have decided against definitive management of the patient's bladder cancer
At the time of his TURBT he was noted to have urethral erosion of his previously placed artificial urinary sphincter: it was explanted at the time by Dr. Cook
Patient has ESRD complicating his management
---
Patient was admitted to from his SNF 12/30/23, just a few days after having been discharged, with a poorly draining Sanches and gross hematuria
He has evidence of pneumonia
Objective
-
Vital Signs
Temp Pulse Resp BP Pulse Ox
98.5 F 67 18 127/56 100
01/03/24 07:30 01/03/24 07:57 01/03/24 07:30 01/03/24 07:57 01/03/24 07:30
Intake and Output
01/02/24 01/03/24 01/04/24
06:59 06:59 06:59
Intake Total 610 / 610
Output Total 100 / 100 50 / 50
Balance 510 / 510 -50 / -50
Intake:
Oral fluids 360 / 360
Blood Product Amount Infused ( 250 / 250
mL)
Packed Rbc Leukoreduced Unit 250 / 250
[id number]
Output:
Urine, Sanches 100 / 100 50 / 50
Laboratory Results
01/02/24 07:58
01/02/24 07:58
Physical Exam
-
General - well developed, well nourished, no acute distress
Chest - clear bilaterally
Abdomen - soft, non-tender, positive bowel sounds, no CVAT, no incisional pain or distention
Genitalia - normal
Rectal - normal
Skin - warm & dry with no rash
Neuro - AOx3, no motor deficits
Extremities - no clubbing, no cyanosis, no edema
Incision - clean, dry
Dressing - clean, dry, intact
[2024-01-03 11:07] LABS: Glucose - Point of Care 287 mg/dl (70-99)
[2024-01-03] MEDS: NOVOLOG FLEXPEN-LOW RESISTANCE 3 UNITS SC (11:27)
[2024-01-03 13:35] LABS: % Basophils 0.3 % (0-2); % Eosinophils 1.5 % (0-6); % Immature Granulocytes 0.7 % (0-0.5); % Lymphocytes 7.4 % (20.5-51.1); % Monocytes 11.6 % (1.7-9.3); % Neutrophils 78.5 % (42.2-75.2); Absolute Eosinophils 0.2 10^3/uL (0-0.7); Absolute Immature Granulocytes 0.1 10^3/uL (0-0.05); Absolute Monocytes 1.5 10^3/uL (0.1-0.6); Absolute Neutrophils 10.1 10^3/uL (1.4-6.5); Hematocrit 24.9 % (39.0-52.0); Hemoglobin 7.8 g/dL (13.0-18.0); Mean Corp Hgb Conc. 31.3 g/dL (33.0-37.0); Mean Corpuscular Hgb 32.1 pg (27.0-31.0); Mean Corpuscular Volume 102.5 fL (80.0-94.0); Mean Platelet Volume 11.4 fL (7.4-10.4); Nucleated Red Blood Cells % 0 % (-); Platelet Count 261 10^3/uL (130-400); Red Blood Cell Count 2.43 10^6/uL (4.70-6.10); Red Cell Dist. Width 17.7 % (11.5-14.5); White Blood Cell Count 12.9 10^3/uL (4.8-10.8)
--- NOTE | 2024-01-03 14:15 | W.PN.HOSP.TC ---
Today's Communication/Plan
-
recheck Hgb
Assessment / Plan
Assessment / Plan
# Recurrent hematuria i
# Prostate/bladder cancer status post recent prostatectomy and bladder scraping
# Chronic Che catheter and artificial urinary sphincter status post explant
# Recent TURBT
-Patient had episode of hematuria, somewhat to be expected with reported
-Patient was evaluated last visit no intervention recommended 12/24/2023
-Urology evaluated again this admit and catheter has been exchanged.
-Patient having some bladder spasms, cannot use Detrol with ESRD. Trial of oxybutynin and valium provided.
-Mild leukocytosis and maintaining on empiric IV cefepime, trending down. remains afebrile.
# Acute on chronic leukocytosis
Recent aspiration pneumonia
-Treated at [facility] recently
-CXR: Moderate left lower lobe pneumonia.� Previous CABG surgery.� Chronic superior endplate fracture L1.� Mild cardiomegaly
-Had recent blood cultures x 2, PD catheter culture and CT abdomen all negative
-Will give empiric IV cefepime
WBC 18.4-->12.9k
#Acute blood loss anemia from hematuria
Anemia of chronic renal disease
- 1 u prbc 12/31, f/u Hbg 7.5-->7.8 today, monitor.
-baseline anemia with ESRD and nephro providing WINSTON
will check Hgb in AM, if pt needs another unit of blood it is better to give with dialysis and thus will transfuse at that time, but if better, will plan on dc
# Calcific uremic arteriolopathy
-bilateral LE wound on calf
-already on sevalemer
-Getting Sodium thiosulfate with HD
-PTH 362 on 12/23 - discussed with nephro and considering starting cinacalcet
-continue wound care
# ESRD on HD MWF
# h/o of PD
-PD catheter removed on 12/20.
-Current dialysis through left upper arm fistula, good palpable thrill.
#IDDM with� hx hypogylcemia
-lantus 4u and iss.�
Transaminitis recent improving
Secondary hyperparathyroidism
CAD status post CABG
Recent demand ischemia/NSTEMI
Paroxysmal atrial fibrillation - continue asa/amiodarone
Combined systolic/diastolic CHF - furosemide
Essential hypertension
Hypercholesterolemia
Chronic constipation
Chronic anemia
Diverticulosis
History of fatty liver
History of skin cancer
Depression
Cataract surgery
DVT prophylaxis-SCDs in the setting of hematuria
DNR/DNI
discussed wtih Tanisha of [facility], pending repeat Hgb at dialysis potential dc tomorrow post dialysis
Anticipated Discharge: Within 24 hours
Subjective/Interval History
-
Date of Service: January 03, 2024
Still with hematuria
Objective Data
-
Labs:
Laboratory Results
01/03/24
13:06
WBC 12.9 H
Hgb 7.8 L
Hct 24.9 L
Plt Count 261
Vital Signs:
Vital Signs
Temp Pulse Resp BP Pulse Ox
98.5 F 67 18 127/56 100
01/03/24 07:30 01/03/24 07:57 01/03/24 07:30 01/03/24 07:57 01/03/24 07:30
I&O
01/02/24 01/03/24 01/04/24
06:59 06:59 06:59
Intake Total 610 / 610
Output Total 100 / 100 50 / 50
Balance 510 / 510 -50 / -50
Review of Systems
-
History Source: Patient and Coordinated Provider
Constitutional: Denies Fever
EENT: Reports No Symptoms Reported
Respiratory: Reports No Symptoms
Cardiac: Reports No Symptoms; Denies Chest Pain
Abdomen/GI: Reports No Symptoms
Genitourinary: Reports Bleeding and Other (che in place)
Physical Exam
-
General: Well Developed, Well Nourished and No Apparent Distress
HEENT: Normocephalic, Atraumatic and Moist Mucous Membranes
Respiratory: Rales (bibasilar rales, ?chronic); Negative Wheezes or Rhonchi
Cardiac: Regular Rhythm and S1/S2
GI: Soft, Nontender and Nondistended
Genito-urinary: Bloody Urine and Che
Musculoskeletal: No Clubbing, No Cyanosis and No Edema
Neuro: Awake, Alert and Oriented
--- NOTE | 2024-01-03 15:02 | CM ---
sports centre manager reviewed patient's chart and met with patient and spoke with Liberty in admissions at [facility], and they have a bed for patient tomorrow if patient is stable, patient will continue with HD at [facility] in [place], [phone], , [facility] will provide transport to HD.
[facility]
Report [phone]

[facility] at [place] 10:50 am on Sunday
[phone]
--- NOTE | 2024-01-03 15:11 | W.PN.NEPH.PH ---
Today's Communication / Plan
-
HD tomorrow
Assessment/Plan
-
Impression:
Suprapubic discomfort with blood clots and catheter
History of colonic AVMs (APC February 2023, May 2023, Sep 30)
ESRD on PD (recent conversion from HD)
chronic combined Heart failure with reduced EF46%, DD stage2
CAD status post CABG 2018
Edema
Bladder CA status post TURBT
Prostate CA status post prostatectomy
Diabetes mellitus type 2
Hypertension multidrug
Hypercholesterolemia
Paroxysmal atrial fibrillation on anticoagulation
Secondary hyperparathyroidism
Chronic back pain requiring epidural injections
Left brachiocephalic AV fistula
Depression
Leukocytosis
Falls
Lower extremity calciphylaxis
Hyperphosphatemia
Plan:
HD tomorrow
-Thiosulfate provided on dialysis for calciphylaxis
-WINSTON provided for anemia, prn transfusion for anemia
-Hemodynamically stable on current antihypertensives
-Che catheter exchanged by urology this admit, still continues hematuria
-Continue sevelamer with meals in regards to hyperphosphatemia
-Appropriate dietary and fluid restrictions ordered
-Cefepime dosed for presumed pneumonia due to aspiration
-
-
Date of Service: January 03, 2024
CC / HPI / ROS
-
Chief Complaint:
ESRD
History of Present Illness:
ESRD MWF
hemodynamically stable
hb better at 7.8
on thiosulfate for lower extremity calciphylaxis
Review of Systems:
no fevers
blood in che
no cp or sob
Labs
-
Labs:
WBC 12.9 10^3/uL (4.8-10.8) H 01/03/24 13:06
RBC 2.43 10^6/uL (4.70-6.10) L 01/03/24 13:06
Hgb 7.8 g/dL (13.0-18.0) L 01/03/24 13:06
Hct 24.9 % (39.0-52.0) L 01/03/24 13:06
Plt Count 261 10^3/uL (130-400) 01/03/24 13:06
Sodium 131 mmol/L (135-145) L 01/02/24 07:58
Potassium 3.8 mmol/L (3.5-5.1) 01/02/24 07:58
Chloride 91 mmol/L (98-107) L 01/02/24 07:58
Carbon Dioxide 27 mmol/L (22-30) 01/02/24 07:58
BUN 57 mg/dl (9-20) H 01/02/24 07:58
Creatinine 5.1 mg/dL (0.7-1.3) H* 01/02/24 07:58
eGFR 10.84 01/02/24 07:58
Glucose 181 mg/dl (70-99) H 01/02/24 07:58
Calcium 8.4 mg/dl (8.4-10.2) 01/02/24 07:58
Albumin 2.8 g/dl (3.5-5.0) L 01/02/24 07:58
Physical Exam
-
Vital Signs:
Vital Signs
Temp Pulse Resp BP Pulse Ox
98.5 F 67 18 127/56 100
01/03/24 07:30 01/03/24 07:57 01/03/24 07:30 01/03/24 07:57 01/03/24 07:30
Cardiovascular:: Regular rate and rhythm
Respiratory:: Bilateral: CTA
Lung Excursion:: Normal
Abdomen:: Nontender and Soft
Extremity Edema:: None: Bilateral:
Che Catheter: No
[2024-01-03 15:30] VITALS: BP 117/50
[2024-01-03 17:27] LABS: Glucose - Point of Care 229 mg/dl (70-99)
[2024-01-03] MEDS: NOVOLOG FLEXPEN-LOW RESISTANCE 2 UNITS SC (17:30)
[2024-01-03] MEDS: VITAMIN D3 (cholecalciferol) 125 MCG PO (17:32)
[2024-01-03] MEDS: DITROPAN 5 MG PO (20:40)
[2024-01-03] MEDS: XALATAN OPHTHALMIC SOLUTION 1 DROP BOTH EYES (20:40)
[2024-01-03] MEDS: TYLENOL 650 MG PO (20:45)
[2024-01-03 21:02] LABS: Glucose - Point of Care 327 mg/dl (70-99)
--- NOTE | 2024-01-03 21:14 | W.PN.UPDATE ---
Update Note
Progress Note Update
Patients HS accucheck 327, patient with Lantus 4 units, order placed for Novolog 5 units, nursing to recheck in 2 hours and report if patient remains over 300.
[2024-01-03] MEDS: NOVOLOG FLEXPEN 5 UNITS SC (21:24)
[2024-01-03] MEDS: LANTUS 0.0400000000000000008 UNITS SC (21:24)
[2024-01-03 23:10] LABS: Glucose - Point of Care 265 mg/dl (70-99)
[2024-01-03 23:16] VITALS: BP 121/49
[2024-01-03] MEDS: MAXIPIME 1000 MG IV (23:17)
[2024-01-03] MEDS: STERILE WATER FOR INJECTION 10 ML IV (23:17)
[2024-01-04 08:03] LABS: Glucose - Point of Care 238 mg/dl (70-99)
[2024-01-04 08:21] VITALS: BP 120/53
[2024-01-04 08:33] LABS: % Basophils 0.3 % (0-2); % Eosinophils 2.2 % (0-6); % Immature Granulocytes 0.7 % (0-0.5); % Lymphocytes 7.3 % (20.5-51.1); % Monocytes 11.2 % (1.7-9.3); % Neutrophils 78.3 % (42.2-75.2); Absolute Eosinophils 0.3 10^3/uL (0-0.7); Absolute Immature Granulocytes 0.1 10^3/uL (0-0.05); Absolute Monocytes 1.6 10^3/uL (0.1-0.6); Absolute Neutrophils 11.2 10^3/uL (1.4-6.5); Hemoglobin 7.7 g/dL (13.0-18.0); Mean Corp Hgb Conc. 32.1 g/dL (33.0-37.0); Mean Corpuscular Hgb 32.2 pg (27.0-31.0); Mean Corpuscular Volume 100.4 fL (80.0-94.0); Mean Platelet Volume 11.4 fL (7.4-10.4); Nucleated Red Blood Cells % 0 % (-); Platelet Count 252 10^3/uL (130-400); Red Blood Cell Count 2.39 10^6/uL (4.70-6.10); Red Cell Dist. Width 17.6 % (11.5-14.5); White Blood Cell Count 14.3 10^3/uL (4.8-10.8)
[2024-01-04] MEDS: RETACRIT 10000 UNITS IV (08:47)
[2024-01-04 08:55] LABS: Blood Urea Nitrogen 55 mg/dl (9-20); Calcium 8.4 mg/dl (8.4-10.2); Carbon Dioxide 27 mmol/L (22-30); Chloride 92 mmol/L (98-107); Estimated Creatinine Clearance 12 ml/min; Glucose 221 mg/dl (70-99); Potassium 4.1 mmol/L (3.5-5.1); Sodium 129 mmol/L (135-145); eGFR 11.37
[2024-01-04] MEDS: NOVOLOG FLEXPEN-LOW RESISTANCE 2 UNITS SC (08:57)
[2024-01-04] MEDS: ANTIFUNGAL CLEAR 1 APPLIC TOPICAL ×2 (08:57→19:58)
[2024-01-04] MEDS: RENVELA PO (08:58)
[2024-01-04] MEDS: DAKIN'S SOLUTION 0.125% 1/4 STRENGTH 1 ML TOPICAL (08:58)
--- NOTE | 2024-01-04 09:15 | W.PN.URO.CBU ---
Today's Communication / Plan
-
Cleared for transfer back to [facility]
Discussed case with daughter, Dr. Cook and Dr. Burnham
Hospitalist notified
Assessment / Plan
-
s/p TURBT roughly 1 month ago: recurrent/persistent gross hematuria. Dr. Burnham has no plans for definitive therapy: family aware
Eroded AUS: s/p removal by Dr. Cook
History of prostate cancer
ESRD
---
Sanches replaced for mal-position and upsized 12/31/23
Diagnosis
-
Date of Service: January 04, 2024
-
Patient Diagnosis:
History of prostate cancer s/p radical prostatectomy
History of bladder cancer: managed by Dr. Burnham of [facility]]. Patient last underwent TURBT roughly 1 month ago and has had recurrent/persistent gross hematuria since
Dr. Burnham was contacted 01/02/24: he reports he and the family have decided against definitive management of the patient's bladder cancer
At the time of his TURBT he was noted to have urethral erosion of his previously placed artificial urinary sphincter: it was explanted at the time by Dr. Cook
Patient has ESRD complicating his management
---
Patient was admitted to from his SNF 12/30/23, just a few days after having been discharged, with a poorly draining Sanches and gross hematuria
He has evidence of pneumonia
Subjective
-
Comfortable
Weary
Objective
-
Vital Signs
Temp Pulse Resp BP Pulse Ox
98.1 F 61 16 120/53 94
01/04/24 08:21 01/04/24 08:21 01/04/24 08:21 01/04/24 08:21 01/04/24 08:21
Intake and Output
01/03/24 01/04/24 01/05/24
06:59 06:59 06:59
Intake Total 480 / 480
Output Total 50 / 50 75 / 75
Balance -50 / -50 405 / 405
Intake:
Oral fluids 480 / 480
Output:
Urine, Sanches 50 / 50 75 / 75
Laboratory Results
01/04/24 08:01
01/04/24 08:01
Review of Systems
-
Constitutional: Fatigue
Respiratory: No Symptoms
Cardiac: No Symptoms
Abdomen/GI: No Symptoms
: Bleeding
Physical Exam
-
General - chronically ill, no acute distress
Abdomen - soft, non-tender
Genitalia - normal with Sanches draining maroon urine w/o clot
--- NOTE | 2024-01-04 10:14 | W.PN.NEPH.HD ---
Assessment
-
Patient seen on HD
sbp 123 at u/f of 3kg
patient now stating he wants to , no more HD
asked primary service to contact hopsice
Progress Note - Hemodialysis
-
Date of Service: January 04, 2024
Duration: 30 minutes and 3 hours
Potassium Bath: 2
Calcium Bath: 2.5
Opti-Dialyzer: 160
Ultrafiltration: Other (3kg)
Blood Flow: 400
Dialysate Flow: 600
Heparin: 500 times two
EPO: 10K
--- NOTE | 2024-01-04 10:19 | CM ---
Addendum entered by Tanisha Vargas 01/04/24 16:36:
Patient to return to home on hospice tomorrow, per hospice note, [facility] to have equipment in home, patient will need ambulance OOH DNR is on chart and needs to be completed, IMM completed and placed on chart.
Addendum entered by Tanisha Vargas 01/04/24 10:29:
Patient is agreeable to [facility], referral sent to [facility].
Original Note:
manager ship reviewed a call from physician that patient was requesting hospice consult, will review options with patient.
Plan; Hospice evaluation.
[2024-01-04] MEDS: SODIUM THIOSULFATE 250 GRAMS IV (10:45)
[2024-01-04 11:28] LABS: Glucose - Point of Care 180 mg/dl (70-99)
[2024-01-04] MEDS: PACERONE 100 MG PO (11:56)
[2024-01-04] MEDS: LASIX 80 MG PO (11:56)
[2024-01-04] MEDS: ZETIA 10 MG PO (11:56)
[2024-01-04] MEDS: CATAPRES 0.299999999999999989 MG PO ×2 (11:56→19:54)
[2024-01-04] MEDS: LIPITOR 40 MG PO (11:56)
[2024-01-04] MEDS: APRESOLINE 50 MG PO (11:56)
[2024-01-04] MEDS: RENVELA 2400 MG PO ×2 (11:57→17:09)
[2024-01-04] MEDS: NOVOLOG FLEXPEN-LOW RESISTANCE 1 UNITS SC (11:57)
[2024-01-04] MEDS: DITROPAN 5 MG PO ×2 (12:01→19:58)
[2024-01-04] MEDS: DILAUDID 0.5 MG IV ×2 (12:48→18:22)
--- NOTE | 2024-01-04 14:34 | HOSPNOTE ---
Spoke with son and daughter of patient. The plan is home hospice and the family will look into care givers. The family is looking to get patient home. I will order equipment and have it delivered tomorrow morning and then will need transport home.
[facility] DNR will be needed on chart. Case management aware of plan.
[2024-01-04 15:07] VITALS: BP 104/66
--- NOTE | 2024-01-04 15:52 | W.PN.HOSP.TC ---
Today's Communication/Plan
-
home hospice tomorrow
Assessment / Plan
Assessment / Plan
01/03
Patient initially cleared for discharge to [facility] with HD on sunday
I was contacted by kit planner that patient have requested for not getting any more HD and would like to go hospice.
Hospice staff was consulted and patient wants to go home with home hospice
DME/hospital bed to be delivered tomorrow and patient will be discharged home tomorrow.

# Recurrent hematuria
# Prostate/bladder cancer status post recent prostatectomy and bladder scraping
# Chronic Sanches catheter and artificial urinary sphincter status post explant
# Recent TURBT
-Patient had episode of hematuria, somewhat to be expected with reported
-Patient was evaluated last visit no intervention recommended 12/24/2023
-Urology evaluated again this admit and catheter has been exchanged.
-Patient having some bladder spasms, cannot use Detrol with ESRD. Trial of oxybutynin and valium provided.
-Mild leukocytosis and maintaining on empiric IV cefepime, trending down. remains afebrile.
# Acute on chronic leukocytosis
Recent aspiration pneumonia
-Treated at [facility] recently
-CXR: Moderate left lower lobe pneumonia.� Previous CABG surgery.� Chronic superior endplate fracture L1.� Mild cardiomegaly
-Had recent blood cultures x 2, PD catheter culture and CT abdomen all negative
-Will give empiric IV cefepime
#Acute blood loss anemia from hematuria
Anemia of chronic renal disease
- 1 u prbc 12/31, f/u Hbg 7.5-->7.8 today, monitor.
-baseline anemia with ESRD and nephro providing WINSTON
will check Hgb in AM, if pt needs another unit of blood it is better to give with dialysis and thus will transfuse at that time, but if better, will plan on dc
# Calcific uremic arteriolopathy
-bilateral LE wound on calf
-already on sevalemer
-Getting Sodium thiosulfate with HD
-PTH 362 on 12/23 - discussed with nephro and considering starting cinacalcet
-continue wound care
# ESRD on HD MWF
# h/o of PD
-PD catheter removed on 12/20.
-Current dialysis through left upper arm fistula, good palpable thrill.
#IDDM with� hx hypogylcemia
-lantus 4u and iss.�
Transaminitis recent improving
Secondary hyperparathyroidism
CAD status post CABG
Recent demand ischemia/NSTEMI
Paroxysmal atrial fibrillation - continue asa/amiodarone
Combined systolic/diastolic CHF - furosemide
Essential hypertension
Hypercholesterolemia
Chronic constipation
Chronic anemia
Diverticulosis
History of fatty liver
History of skin cancer
Depression
Cataract surgery
DVT prophylaxis-SCDs in the setting of hematuria
DNR/DNI

Anticipated Discharge: Within 24 hours
Subjective/Interval History
-
Date of Service: January 04, 2024
Minimal hematuria, dark urine in Sanches catheter
No reported abdominal pain/bladder spasms
Afebrile
Objective Data
-
Labs:
Laboratory Results
01/04/24
08:01
WBC 14.3 H
Hgb 7.7 L
Hct 24.0 L
Plt Count 252
Sodium 129 L
Potassium 4.1
Chloride 92 L
Carbon Dioxide 27
BUN 55 H
Creatinine 4.9 H*
Glucose 221 H
Calcium 8.4
Vital Signs:
Vital Signs
Temp Pulse Resp BP Pulse Ox
98.3 F 61 16 104/66 96
01/04/24 15:07 01/04/24 15:07 01/04/24 15:07 01/04/24 15:07 01/04/24 15:07
I&O
01/03/24 01/04/24 01/05/24
06:59 06:59 06:59
Intake Total 480 / 480
Output Total 50 / 50 75 / 75
Balance -50 / -50 405 / 405
Review of Systems
-
Respiratory: Reports No Symptoms
Cardiac: Reports No Symptoms
Abdomen/GI: Reports No Symptoms
Physical Exam
-
General: No Apparent Distress
HEENT: Oxygen
Respiratory: Clear to Auscultation
Cardiac: Regular Rhythm and S1/S2
GI: Soft, Nontender and Nondistended
Genito-urinary: Bloody Urine and Sanches
Musculoskeletal: No Clubbing, No Cyanosis and No Edema
Neuro: Awake, Alert and Oriented
[2024-01-04 16:49] LABS: Glucose - Point of Care 281 mg/dl (70-99)
[2024-01-04] MEDS: NOVOLOG FLEXPEN-LOW RESISTANCE 3 UNITS SC (17:09)
[2024-01-04] MEDS: VITAMIN D3 (cholecalciferol) 125 MCG PO (17:09)
[2024-01-04 21:27] LABS: Glucose - Point of Care 256 mg/dl (70-99)
[2024-01-04] MEDS: LANTUS 0.0400000000000000008 UNITS SC (22:25)
[2024-01-04] MEDS: XALATAN OPHTHALMIC SOLUTION 1 DROP BOTH EYES (22:26)
[2024-01-04 23:00] VITALS: BP 107/62
[2024-01-04] MEDS: STERILE WATER FOR INJECTION 10 ML IV (23:56)
[2024-01-04] MEDS: MAXIPIME 1000 MG IV (23:56)
--- NOTE | 2024-01-05 02:19 | PTCARENOTE ---
pt with complaint of having to have a bowel movement but is unable to. Last bowel movement charted was 12/30. When pt was questioned about it he states that is correct. Marleen ROSS was made aware and ordered a Bisacodyl suppository.
[2024-01-05] MEDS: DULCOLAX 10 MG RECTAL (02:23)
[2024-01-05 06:00] VITALS: BMI 29.7
[2024-01-05 07:00] VITALS: BP 125/56
[2024-01-05 07:12] LABS: Glucose - Point of Care 286 mg/dl (70-99)
[2024-01-05] MEDS: ANTIFUNGAL CLEAR 1 APPLIC TOPICAL (09:15)
[2024-01-05] MEDS: NOVOLOG FLEXPEN-LOW RESISTANCE 3 UNITS SC (09:15)
[2024-01-05] MEDS: DAKIN'S SOLUTION 0.125% 1/4 STRENGTH 1 ML TOPICAL (09:16)
[2024-01-05] MEDS: RENVELA 2400 MG PO ×2 (09:17→12:16)
[2024-01-05] MEDS: APRESOLINE 50 MG PO (09:17)
[2024-01-05] MEDS: CATAPRES 0.299999999999999989 MG PO (09:18)
[2024-01-05] MEDS: ZETIA 10 MG PO (09:18)
[2024-01-05] MEDS: LIPITOR 40 MG PO (09:18)
[2024-01-05] MEDS: LASIX 80 MG PO (09:19)
[2024-01-05] MEDS: PACERONE 100 MG PO (09:19)
--- NOTE | 2024-01-05 10:39 | CM ---
Addendum entered by Atiya Navarro 01/07/24 08:45:
[facility] requesting d/c paperwork.
Spoke with Estefania at [facility], .
parts order and stock clerk will fax.
Addendum entered by Atiya Navarro 01/05/24 13:01:
Ambulance transport scheduled with Acute Care between 3:30-3:45 pm, TT to [facility].
Addendum entered by Atiya Navarro 01/05/24 12:41:
[facility] able to accept patient today.
[facility] is able to provide transportation to HD Sunday.
[facility]
report# [phone]

Addendum entered by Atiya Navarro 01/05/24 10:50:
[facility] checking to see if they can get transport for HD Sunday.
Original Note:
Patient seen bedside.
Declining hospice at this time.
Hospice nurse updated.
Plan: Skilled rehab at the [facility].
Await bed availability, await TCB from [facility].
--- NOTE | 2024-01-05 12:08 | W.PN.HOSP.TC ---
Today's Communication/Plan
-
pt declined hospice
Discharge to [facility]
Assessment / Plan
Assessment / Plan
# Recurrent hematuria
# Prostate/bladder cancer status post recent prostatectomy and bladder scraping
# Chronic Sanches catheter and artificial urinary sphincter status post explant
# Recent TURBT
-Patient had episode of hematuria, somewhat to be expected with reported
-Patient was evaluated last visit no intervention recommended 12/24/2023
-Urology evaluated again this admit and catheter has been exchanged.
-Patient having some bladder spasms, cannot use Detrol with ESRD. Trial of oxybutynin and valium provided.
-Discontinue further antibiotics and monitor.
# Acute on chronic leukocytosis
Recent aspiration pneumonia
-Treated at [facility] recently
-CXR: Moderate left lower lobe pneumonia.� Previous CABG surgery.� Chronic superior endplate fracture L1.� Mild cardiomegaly
-Had recent blood cultures x 2, PD catheter culture and CT abdomen all negative
-discontinue further abx and monitor.
#Acute blood loss anemia from hematuria
Anemia of chronic renal disease
-1 u prbc 12/31, f/u Hbg 7.5 > 7.8 > 7.8
-baseline anemia with ESRD and nephro providing WINSTON
# Calcific uremic arteriolopathy
-bilateral LE wound on calf
-already on sevalemer
-Getting Sodium thiosulfate with HD
-PTH 362 on 12/23 - discussed with nephro and considering starting cinacalcet
-continue wound care
# ESRD on HD MWF
# h/o of PD
-PD catheter removed on 12/20.
-Current dialysis through left upper arm fistula, good palpable thrill.
#IDDM with� hx hypogylcemia
-lantus 4u and iss.�
Transaminitis recent improving
Secondary hyperparathyroidism
CAD status post CABG
Recent demand ischemia/NSTEMI
Paroxysmal atrial fibrillation - continue asa/amiodarone
Combined systolic/diastolic CHF - furosemide
Essential hypertension
Hypercholesterolemia
Chronic constipation
Chronic anemia
Diverticulosis
History of fatty liver
History of skin cancer
Depression
Cataract surgery
DVT prophylaxis-SCDs in the setting of hematuria
DNR/DNI
01/04 patient yesterday agreeable for hospice and hospice nurse met patient and plan was patient to be discharged home hospice. Although patient family not in agreement encouragements patient agrees to hospice. Patient already on all the necessary
treatment. Discussed care plan with shoe caser and patient have bed at [facility] and patient will be discharged today.
Anticipated Discharge: Today
Subjective/Interval History
-
Date of Service: January 05, 2024
Patient complaining some lower extremity pain
Also feels constipated
No other issues reported
Objective Data
-
Labs:
Laboratory Results
01/05/24
11:58
WBC Pending
Hgb Pending
Hct Pending
Plt Count Pending
Vital Signs:
Vital Signs
Temp Pulse Resp BP Pulse Ox
98 F 63 16 126/59 96
01/05/24 07:00 01/05/24 09:17 01/05/24 07:00 01/05/24 09:17 01/05/24 11:06
I&O
01/04/24 01/05/24 01/06/24
06:59 06:59 06:59
Intake Total 480 / 480 240 / 240 240 / 240
Output Total 75 / 75
Balance 405 / 405 240 / 240 240 / 240
Review of Systems
-
Respiratory: Reports No Symptoms
Cardiac: Reports No Symptoms
Abdomen/GI: Reports No Symptoms
Physical Exam
-
General: No Apparent Distress
HEENT: Oxygen
Respiratory: Clear to Auscultation
Cardiac: Regular Rhythm and S1/S2
GI: Soft, Nontender and Nondistended
Genito-urinary: Bloody Urine and Sanches
Musculoskeletal: No Edema
Neuro: Awake, Alert and Oriented
[2024-01-05 12:11] LABS: Glucose - Point of Care 217 mg/dl (70-99)
[2024-01-05] MEDS: NOVOLOG FLEXPEN 4 UNITS SC (12:17)
[2024-01-05] MEDS: NOVOLOG FLEXPEN-LOW RESISTANCE 2 UNITS SC (12:17)
[2024-01-05 12:21] LABS: Hematocrit 24.7 % (39.0-52.0); Hemoglobin 7.8 g/dL (13.0-18.0); Mean Corp Hgb Conc. 31.6 g/dL (33.0-37.0); Mean Corpuscular Volume 101.2 fL (80.0-94.0); Mean Platelet Volume 11.8 fL (7.4-10.4); Platelet Count 246 10^3/uL (130-400); Red Blood Cell Count 2.44 10^6/uL (4.70-6.10); Red Cell Dist. Width 17.4 % (11.5-14.5); White Blood Cell Count 14.3 10^3/uL (4.8-10.8)
[2024-01-05 12:25] VITALS: BP 157/72; PULSE 62; O2SAT 98
--- NOTE | 2024-01-05 14:23 | W.PN.NEPH.PH ---
Today's Communication / Plan
-
For discharge
Assessment/Plan
-
Impression:
Suprapubic discomfort with blood clots and catheter
History of colonic AVMs (APC February 2023, May 2023, Sep 30)
ESRD on PD (recent conversion from HD)
chronic combined Heart failure with reduced EF46%, DD stage2
CAD status post CABG 2018
Edema
Bladder CA status post TURBT
Prostate CA status post prostatectomy
Diabetes mellitus type 2
Hypertension multidrug
Hypercholesterolemia
Paroxysmal atrial fibrillation on anticoagulation
Secondary hyperparathyroidism
Chronic back pain requiring epidural injections
Left brachiocephalic AV fistula
Depression
Leukocytosis
Falls
Lower extremity calciphylaxis
Hyperphosphatemia
Plan:
-Patient for discharge to rehab
-Family discouraging patient for hospice care at this time henceforth he will be discharged to rehab with dialysis follow-up at our unit
-Thiosulfate provided on dialysis for calciphylaxis
-WINSTON provided for anemia, prn transfusion for anemia
-Hemodynamically stable on current antihypertensives
-Che catheter exchanged by urology this admit, still continues hematuria
-Continue sevelamer with meals in regards to hyperphosphatemia
-Appropriate dietary and fluid restrictions ordered
-
-
Date of Service: January 05, 2024
CC / HPI / ROS
-
Chief Complaint:
ESRD
History of Present Illness:
ESRD MWF
hemodynamically stable
hgb better at 7.8
on thiosulfate for lower extremity calciphylaxis
Review of Systems:
no fevers
blood in che
no cp or sob
Ulcerations on lower extremities
Labs
-
Labs:
WBC 14.3 10^3/uL (4.8-10.8) H 01/05/24 11:58
RBC 2.44 10^6/uL (4.70-6.10) L 01/05/24 11:58
Hgb 7.8 g/dL (13.0-18.0) L 01/05/24 11:58
Hct 24.7 % (39.0-52.0) L 01/05/24 11:58
Plt Count 246 10^3/uL (130-400) 01/05/24 11:58
Sodium 129 mmol/L (135-145) L 01/04/24 08:01
Potassium 4.1 mmol/L (3.5-5.1) 01/04/24 08:01
Chloride 92 mmol/L (98-107) L 01/04/24 08:01
Carbon Dioxide 27 mmol/L (22-30) 01/04/24 08:01
BUN 55 mg/dl (9-20) H 01/04/24 08:01
Creatinine 4.9 mg/dL (0.7-1.3) H* 01/04/24 08:01
eGFR 11.37 01/04/24 08:01
Glucose 221 mg/dl (70-99) H 01/04/24 08:01
Calcium 8.4 mg/dl (8.4-10.2) 01/04/24 08:01
Albumin 2.8 g/dl (3.5-5.0) L 01/02/24 07:58
Physical Exam
-
Vital Signs:
Vital Signs
Temp Pulse Resp BP Pulse Ox
98 F 63 16 126/59 96
01/05/24 07:00 01/05/24 09:17 01/05/24 07:00 01/05/24 09:17 01/05/24 11:06
Cardiovascular:: Regular rate and rhythm
Respiratory:: Bilateral: Coarse
Lung Excursion:: Normal
Abdomen:: Nontender and Soft
Bowel Sounds:: Normal
Extremity Edema:: None: Bilateral:
Che Catheter: Yes
Other Findings::
Lower extremity ulcerations consistent with calciphylaxis
--- NOTE | 2024-01-21 18:17 | W.DCSUMMARY ---
Discharge Summary
Discharge Data
Date of Admission: 12/31/23
Date of Discharge: 01/05/24
-
Pending Results: No
Hospital Course
Discharge : SNF rehab
Principal discharge diagnosis:
Hematuria
Acute blood loss anemia
Recent aspiration pneumonia
Chronic Discharge diagnosis:
history of trans urethral resection of bladder tumor
h/o of prostatectomy
End stage renal disease on hemodialysis
Chronic combined heart failure
Essential hypertension
Hyperlipidemia
Hospital course :
Patient is a 78 M with past medical history of above mentioned issues came back from SNF for recurrence of hematuria. Patient had significant hematuria on previous visit and have and indwelling che catheter. Patient was sent in for recurrence of
this. Urology was involved in care and patient che was exchanged in hospital. Patient have complex urological history and hematuria expected to reoccur. Patient was instructed to follow up with primary urologist at [facility] [address]. Patient required to
be given 1 unit blood for blood loss anemia. Patient at admission had possible pneumonia concern but was recently treated and no other signs to support the diagnosis. Patient was take off of antibiotics.
Patient was discharged back to snf at this point.
Discharge Plan
-
Patient Disposition: Longterm/SNF
Discharge Diagnosis/Procedures: Hematuria post trans urethral resection of bladder tumor,
Condition: Fair
Diet: Low Sodium and Diabetic, Carb Controlled
Activity: As tolerated
Driving Restrictions: As prior to admission
Bathing Restrictions: OK to Shower
Activity Restrictions/Additional Instructions:
Wound Care Instructions
Antifungal ointment to coccyx/buttocks/perianal skin bid.
LE's-clean ulcers gently with 1/4 strength Dakin's solution, apply adaptic, ABD pad, secure with spandage (not tight) daily and prn loosened dressing.
use air chair cushion to off load heels.
Pressure redistributing chair cushion (i.e. Air chair cushion).
Follow up at wound care center call for an appointment.

Please contact your primary urologist at [facility] for follow up.
Referrals:
Millie Smith CRNP [Family Provider] - in one week
Prescriptions:
New
oxybutynin chloride 5 mg Tablet
5 mg PO BID PRN (Reason: Bladder spasm) Qty: 30 0RF
oxycodone 10 mg Tablet
10 mg PO Q4HPRN PRN (Reason: mod sev pain) Qty: 14 0RF
ferrous sulfate [Feosol] 325 mg (65 mg iron) tablet
325 mg PO BID Qty: 30 0RF
Continued
ezetimibe 10 MG tablet
10 mg PO DAILY
vilazodone [Viibryd] 40 MG tablet
40 mg PO DAILY
atorvastatin 40 mg tablet
40 mg PO DAILY
furosemide 80 mg tablet
80 mg PO DAILY
ProRenal QD 400-500 mcg-unit capsule
2 cap PO DAILY
insulin aspart U-100 [Novolog U-100 Insulin aspart] 100 unit/mL Solution
0 sliding scale dose SC MEALS
Patient Comments:
12/31/2023, patient does not know the sliding scale but states that it depends on his blood sugar and what he is eating.
amiodarone 200 mg Tablet
100 mg PO DAILY
trazodone 50 mg Tablet
50 mg PO HS PRN (Reason: Sleep)
latanoprost 0.005 % Drops
1 drp BOTH EYES HS
polyethylene glycol 3350 [Miralax] 17 gram Powder In Packet
17 g PO DAILY PRN (Reason: constipation)
clonidine HCl 0.3 mg Tablet
0.3 mg PO BID
cholecalciferol (vitamin D3) 125 mcg (5,000 unit) Tablet
125 mcg PO QPM
hydralazine 50 mg tablet
50 mg PO DAILY
aspirin 81 mg Tablet,Delayed Release (Dr/Ec)
81 mg PO DAILY
Patient Comments:
09/25/2023, patient states that he has been taking this medication since he's been off of his blood thinners.
fluticasone propionate 50 mcg/actuation [place],Suspension
2 spray INTRANASAL DAILY
insulin glargine [Lantus Solostar U-100 Insulin] 100 unit/mL (3 mL) insulin pen
13 unit SC HS
ipratropium bromide 21 mcg (0.03 %) [place],Non-Aerosol
2 spray INTRANASAL BID
coenzyme Q10 [CoQ-10] 100 mg Capsule
100 mg PO QPM
sevelamer carbonate 800 mg Tablet
2,400 mg PO MEALS
Discontinued
hydromorphone 2 mg Tablet
2 mg PO Q6HPRN PRN (Reason: mod to severe pain) Qty: 4 0RF
Discharge Orders:
Discharge Patient (As Directed); Ordered 01/05/24
Ordered By: Wally Lewis
Discharge Date and Time
Discharge Date/Time: 01/05/24 17:29
Print Language: KAZAKH
== END 2024-01-05 17:29 | DRG 698 ==
LOC: 4 WEST ACU 00:05
PROVIDERS: Clinical Nurse Specialist Family Health; Internal Medicine; ADMITTING PHYSICIAN Internal Medicine; ATTENDING PHYSICIAN Hospitalist; CONSULT PHYSICIAN Specialist; EMERGENCY PHYSICIAN Emergency Medicine; FAMILY PHYSICIAN Registered Nurse Oncology; OTHER PHYSICIAN Specialist
PROC: 5A1D70Z Performance of Urinary Filtration, Intermittent, Less than 6 Hours Per Day (ICD-10-PCS; 2023-12-31)
PROC: 30233N1 Transfusion of Nonautologous Red Blood Cells into Peripheral Vein, Percutaneous Approach (ICD-10-PCS; 2024-01-01)
DX: N02.8 Recurrent and persistent hematuria with other morphologic changes (principal); J69.0 Pneumonitis due to inhalation of food and vomit; I13.2 Hypertensive heart and chronic kidney disease with heart failure and with stage 5 chronic kidney disease, or end stage renal disease; E87.1 Hypo-osmolality and hyponatremia; I50.42 Chronic combined systolic (congestive) and diastolic (congestive) heart failure; D62 Acute posthemorrhagic anemia; N18.6 End stage renal disease; N25.81 Secondary hyperparathyroidism of renal origin; E11.22 Type 2 diabetes mellitus with diabetic chronic kidney disease; E78.00 Pure hypercholesterolemia, unspecified; I25.10 Atherosclerotic heart disease of native coronary artery without angina pectoris; K59.09 Other constipation; D64.9 Anemia, unspecified; N36.8 Other specified disorders of urethra; I25.5 Ischemic cardiomyopathy; E83.59 Other disorders of calcium metabolism; D63.1 Anemia in chronic kidney disease; K76.0 Fatty (change of) liver, not elsewhere classified; G89.29 Other chronic pain; E83.39 Other disorders of phosphorus metabolism; D72.829 Elevated white blood cell count, unspecified; M54.9 Dorsalgia, unspecified; F32.A Depression, unspecified; I48.0 Paroxysmal atrial fibrillation; Z87.891 Personal history of nicotine dependence; Z95.1 Presence of aortocoronary bypass graft; Z66 Do not resuscitate; Z99.2 Dependence on renal dialysis; Z85.51 Personal history of malignant neoplasm of bladder; Z79.01 Long term (current) use of anticoagulants; Z90.79 Acquired absence of other genital organ(s); Z88.8 Allergy status to other drugs, medicaments and biological substances; Z79.82 Long term (current) use of aspirin; Z79.4 Long term (current) use of insulin; Z79.84 Long term (current) use of oral hypoglycemic drugs; Z85.828 Personal history of other malignant neoplasm of skin; Z86.010 Personal history of colon polyps; Z87.19 Personal history of other diseases of the digestive system; I25.2 Old myocardial infarction; Z85.46 Personal history of malignant neoplasm of prostate
CPT/HCPCS: 51798; 71046; 80048; 80053; 82962; 83605; 84145; 85025; 85027; 86850; 86900; 86901; 86920; 87040; 87070; 97110; 97116; 97163; 97530; 97535; 99285; G0257; J2916; P9016; P9047; Q5106